=== PATIENT | male | born 1970 | race Caucasian/White ===

== ENCOUNTER → 2016-09-14 | Outpatient (CLI) | payer OTHER ==
[~2016-09-14] MED LIST: ACET-1311 PO; CYAN100T6 PO; EPOE20005 SQ; FLUC200T4 PO; LACT10CA3 PO; LSX20 PO; METO25TA56 PO; WARF4TAB43 PO
--- NOTE | 2016-09-14 15:37 | DIAGNOSTIC IMAGING REPORT ---
LEFT ANKLE 3 VIEWS HISTORY: Left ANKLE PAIN COMPARISON: None. FINDINGS: There is no fracture or dislocation. Mild soft tissue swelling. No radiopaque foreign bodies. IMPRESSION: No fractures. Electronically signed by: Camilo Alvarez M.D. 09/14/2016 3:36 PM Dictated Date/Time: 09/14/2016 3:34 PM
== END | disposition home or self-care (01) ==
LOC: C.RAD 14:50
PROVIDERS: ATTEND Internal Medicine
DX: M25.572 Pain in left ankle and joints of left foot (principal)

== ENCOUNTER → 2017-04-22 | Outpatient (CLI) | payer OTHER ==
--- NOTE | 2017-04-22 11:40 | DIAGNOSTIC IMAGING REPORT ---
ABDOMEN LIMITED (US) HISTORY: Pain. Nausea. B19.20. COMPARISON: 05/14/2016 FINDINGS: Pancreas: The pancreas demonstrates a normal echotexture. Liver: Unremarkable. Gallbladder: No gallbladder wall thickening. No gallstones. CBD: 4 mm Right kidney: Mild increase in cortical echogenicity. No evidence for hydronephrosis. Several small microcysts. IMPRESSION: 1. Findings suggestive of mild right renal nonobstructive renal insufficiency. 2. Otherwise normal exam The above report was generated using voice recognition software. It may contain grammatical, syntax or spelling errors. Electronically signed by: Pancho Currie M.D. 04/22/2017 11:39 AM Dictated Date/Time: 04/22/2017 11:37 AM
== END | disposition home or self-care (01) ==
LOC: C.ULTR 10:46
PROVIDERS: ATTEND Internal Medicine Gastroenterology
DX: B19.20 Unspecified viral hepatitis C without hepatic coma (principal)

== ENCOUNTER → 2017-06-25 | Outpatient (CLI) | payer OTHER ==
--- NOTE | 2017-06-25 11:19 | DIAGNOSTIC IMAGING REPORT ---
ULTRASOUND KIDNEYS AND BLADDER CLINICAL HISTORY: Renal insufficiency. COMPARISON STUDY: Abdominal CT dated 11/15/2015. TECHNIQUE: Real-time, grayscale, and color flow sonography of the kidneys and bladder is performed. Images are reviewed in the transverse and longitudinal planes. FINDINGS: Kidneys: The kidneys are normal in size and demonstrate increased cortical echotexture. The right kidney measures 11.5 cm and the left kidney measures 10.8 cm in length. There is no hydronephrosis. No shadowing renal calculi are identified. A subcentimeter cyst is incidentally noted on the left. There is no sonographic evidence of contour deforming renal mass lesion. No perinephric fluid is identified. Bladder: The bladder is partially decompressed and grossly normal in appearance. Bilateral ureteral jets were seen. Upper abdomen: The spleen is markedly enlarged measuring 18 cm in length. IMPRESSION: 1. The kidneys are normal in size and without hydronephrosis. 2. The kidneys demonstrate increased cortical echotexture suggesting medical renal disease. 3. The bladder is normal as imaged. 4. Marked splenomegaly. Electronically signed by: Sameer Diaz M.D. 06/25/2017 11:17 AM Dictated Date/Time: 06/25/2017 11:12 AM
== END | disposition home or self-care (01) ==
LOC: C.ULTR 10:31
PROVIDERS: ATTEND Internal Medicine
DX: R16.1 Splenomegaly, not elsewhere classified (principal); N28.9 Disorder of kidney and ureter, unspecified

== ENCOUNTER → 2017-09-15 | Outpatient (CLI) | payer OTHER ==
--- NOTE | 2017-09-15 13:54 | DIAGNOSTIC IMAGING REPORT ---
L-SPINE MIN 4 VIEWS ROUTINE CLINICAL HISTORY: R29.892 loss of height. COMPARISON STUDY: 09/10/2010 FINDINGS: There is a mild spinal curvature convex to the right. No acute fractures are visualized. There are progressive arthritic changes at the T12-L1 level with endplate erosive change. IMPRESSION: 1. Progressive arthritic changes at the T12-L1 level with endplate erosive change 2. No acute fractures Electronically signed by: Chato Weinberg M.D. 09/15/2017 1:53 PM Dictated Date/Time: 09/15/2017 1:51 PM
--- NOTE | 2017-09-15 13:56 | DIAGNOSTIC IMAGING REPORT ---
C-SPINE ROUTINE 4 OR 5 VIEWS CLINICAL HISTORY: R29.892 loss of height COMPARISON STUDY: No previous studies for comparison. FINDINGS: No acute fractures are visualized. There are degenerative changes with disc space narrowing most pronounced at the C5-6 and C6-7 levels. There is mild foraminal encroachment at these levels due to uncinate spurring. IMPRESSION: 1. No fractures identified 2. Degenerative changes most pronounced the C5-6 C6-7 levels. Electronically signed by: Chato Weinberg M.D. 09/15/2017 1:55 PM Dictated Date/Time: 09/15/2017 1:54 PM
--- NOTE | 2017-09-15 14:01 | DIAGNOSTIC IMAGING REPORT ---
THORACIC SPINE 3 VIEWS ROUTINE CLINICAL HISTORY: 47 years-old Male presenting with R29.892 height loss, painless. TECHNIQUE: 3 views of the thoracic spine were obtained. COMPARISON: Correlation made to CTA of the chest from 07/31/2013. FINDINGS: Slightly exaggerated thoracic kyphosis though no deformities of the vertebral bodies are evident. Vertebral bodies maintain normal height and alignment. Intervertebral disc heights preserved though disc osteophyte complexes noted at several levels. No compression deformity or evidence of subluxation. Visualized portion of the cervical spine is also normal. Median sternotomy wires and prosthetic aortic valve noted. Atherosclerosis of aortic arch. IMPRESSION: Exaggerated thoracic kyphosis without a focal compression deformity. Mild multilevel degenerative changes. Electronically signed by: Servando Camarillo M.D. 09/15/2017 2:00 PM Dictated Date/Time: 09/15/2017 1:58 PM
== END | disposition home or self-care (01) ==
LOC: C.RAD 13:11
PROVIDERS: ATTEND Internal Medicine
DX: R29.890 Loss of height (principal)

== ENCOUNTER 2018-10-22 12:25 | Inpatient (IN) ==
[2018-10-22] MEDS ORDERED: ASPIRIN CHEW 324 MG PO STA (12:55)
[2018-10-22] MEDS ORDERED: LORazepam 1 MG TAB SL STA (12:57)
[2018-10-22] MEDS ORDERED: METOPROLOL TARTRATE 1 MG/ML VIAL IV STA (13:02)
[2018-10-22 13:27] LABS: iSTAT Creatinine 2.8 mg/dl (0.6-1.3); iSTAT Hemoglobin 12.6 g/dl (14.0-18.0); iSTAT Ionized Calcium 1.18 mmol/l (1.12-1.32); iSTAT Potassium 4.1 mEq/L (3.3-5.0)
--- NOTE | 2018-10-22 13:29 | XRay Report ---
XR chest 1V portable CLINICAL HISTORY: Chest Pain pain COMPARISON STUDY: 07/21/2018 FINDINGS: Mild cardiomegaly. Prior median sternotomy and valve replacement. Lungs are clear. Diaphrag ms are smooth. Slight chronic blunting right lateral gastric angle. IMPRESSION: Chronic and postoperative change. No acute process. The above report was generated using voice recognition software. It may contain grammatical, syntax or spelling errors. Electronically signed by: Pancho Currie M.D. 10/22/2018 1:28 PM
[2018-10-22 13:40] LABS: Alanine Aminotransferase 17 U/L (12-78); Albumin Level 3.7 gm/dl (3.4-5.0); Aspartate Aminotransferase 13 U/L (15-37); BUN Creatinine Ratio 15.9 (10-20); Blood Urea Nitrogen 43 mg/dl (7-18); Calcium 9.3 mg/dl (8.5-10.1); Carbon Dioxide 23 mmol/L (21-32); Chloride 108 mmol/L (98-107); Creatinine Clr Calc Pharmacy 26.8 ml/min; Est GFR (African American) 30.1; Est GFR (Non-African American) 25.9; Glucose 93 mg/dl (70-99); Sodium 138 mmol/L (136-145)
[2018-10-22 13:45] LABS: Albumin Globulin Ratio 0.8 (0.9-2); Alkaline Phosphatase 80 U/L (45-117); Globulin 4.4 gm/dl (2.5-4.0); INR 4.3 (0.9-1.1); Partial Thromboplastin Ratio 1.3; Prothrombin Time 39.6 Seconds (9.0-12.0); Total Protein 8.1 gm/dl (6.4-8.2); Troponin I < 0.015 ng/ml (0-0.045)
[2018-10-22 13:47] LABS: D Dimer 730 ug/L FEU (0-500)
[2018-10-22 13:48] LABS: ALC (manual) 0.89 K/uL (1.2-3.4); Eosinophils # (manual) 0.05 K/uL (0-0.5); Eosinophils % (manual) 1.8 %; Hematocrit (blood only) 37.6 % (42-52); Hemoglobin 13.5 g/dL (14.0-18.0); Lymphocytes # (manual) 0.48 K/uL (1.2-3.4); Lymphocytes % (manual) 17.5 %; Mean Corpuscular Hgb Conc 35.9 g/dL (32-36); Mean Corpuscular Volume 86.4 fL (80-100); Mean Platelet Volume 12.2 fL (7.4-10.4); Monocytes # (manual) 0.22 K/uL (0.11-0.59); Monocytes % (manual) 7.9 %; Neutrophils % (manual) 57.9 %; Platelet Count 114 K/uL (130-400); Platelet Estimate Decreased (Normal); RDW Standard Deviation 51.4 fL (36.4-46.3); Reactive Lymphocytes # (manual) 0.41 K/uL; Red Blood Count 4.35 M/uL (4.7-6.1); White Blood Count 2.74 K/uL (4.8-10.8)
--- NOTE | 2018-10-22 14:05 | CT Scan Report ---
CT chest wo con CT DOSE: 350.36 mGy.cm HISTORY: Pain dissection, chest pain, prosthetic valve TECHNIQUE: Multiaxial CT images of the chest were performed without contrast. A dose lowering techni que was utilized adhering to the principles of ALARA. COMPARISON: None. FINDINGS: The lungs are considered clear. There is no focal infiltrative change. Mild cardiomegaly. 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 There is evidence for postoperative change and repair of the aortic valve. There is peripheral calcif ication of the bulk of which is most likely a postoperative basis. Her graft there is is circular romero cification transaxial image 116 of the be postoperative. Descending thoracic aorta is unremarkable. IMPRESSION: 1. 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 2. Within limitations of an unenhanced scan these findings appear to be stable and most likely postop erative. 3. The lungs are clear. 4. When able, these images should be compared to any prior outside exams. The above report was generated using voice recognition software. It may contain grammatical, syntax or spelling errors. Electronically signed by: Pancho Currie M.D. 10/22/2018 2:04 PM
--- NOTE | 2018-10-22 14:08 | CT Scan Report ---
CT abdomen wo con CT DOSE: HISTORY: Renal insufficiency dissection, renal failure TECHNIQUE: Multiaxial CT images of the abdomen was performed without contrast. A dose lowering techn ique was utilized adhering to the principles of ALARA. COMPARISON STUDY: 11/15/2015 FINDINGS: Lung bases are clear. Mild stable hepatomegaly. Significant splenic enlargement. This is slightly improved from the prior exam. The splenic enlargeme nt displaces the left kidney and anterior and medial fashion. The [place] kidneys are negative for calcification or hydronephrosis. Bowel pattern overall is nonobstructive. IMPRESSION: 1. Massive splenomegaly similar to prior studies. 2. Moderate hepatomegaly also stable. 3. Nonobstructive bowel pattern. 4. Mild atherosclerotic change abdominal aorta with no evidence for aneurysm. 5. No significant new or interval finding compared to the prior exam. The above report was generated using voice recognition software. It may contain grammatical, syntax or spelling errors. Electronically signed by: Pancho Currie M.D. 10/22/2018 2:07 PM
--- NOTE | 2018-10-22 16:14 | History & Physical Report ---
Date of Service October 22, 2018 Assessment & Plan (1) Atypical chest pain: Observation with telemetry. Heart catheterization in August of this year reveals no significant critical coronary artery disease. Moderate pulmonary hypertension was noted however. Observation with telemetry. Serial troponins. Repeat cardiac echo. Cardiology consultation. Present on Admission?: Yes (2) Paroxysmal atrial flutter: The patient has a history of atrial tachycardia and atrial flutter. He is anticoagulated on Coumadin. Heart rate is controlled at this time. Continue telemetry. Continue Coumadin and metoprolol therapy Present on Admission?: Yes (3) History of aortic valve replacement: Status post mechanical aortic valve replacement in 2007 Present on Admission?: Yes (4) Congenital heart disease: See previous records Present on Admission?: Yes (5) Anticoagulated on Coumadin: Current INR 4.2. Will obtain daily INR measurements Present on Admission?: Yes (6) Essential hypertension: Treated with metoprolol and hydralazine Present on Admission?: Yes (7) Intrinsic asthma: Currently stable. Continue inhalers as before Present on Admission?: Yes History of Present Illness Chief Complaint: Chest pain Primary Care Provider: Aguila Pollard 48-year-old male with congenital heart disease. He had supra aortic stenosis and underwent metallic aortic valve replacement in 2007. 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 He developed mid chest pain while at rest today described as a sharp pain associated with shortness of breath it radiated to the neck and arms. Interestingly, just 2 months ago he had a heart catheterization that revealed no critical coronary artery disease but he was found to have moderate pulmonary hypertension. He was given aspirin, IV metoprolol, and lorazepam in the ED and is now asymptomatic. EKG reveals atrial flutter which she has had in the past. Heart rate is controlled. He has a previous history of paroxysmal atrial tachycardia. He currently takes metoprolol succinate 75 mg daily which will be continued. He is also on chronic Coumadin therapy with current INR 4.2. Cardiac echo will be repeated and cardiology consultation requested. Allergies Allergy/AdvReac Type Severity Reaction Status Date / Time chlorhexidine Allergy Severe RASH Verified 10/22/18 14:40 isopropyl alcohol Allergy Severe RASH Verified 10/22/18 14:40 adhesive Allergy Intermediate RASH Verified 10/22/18 14:40 cat dander Allergy Unknown . Verified 10/22/18 14:40 amphotericin B AdvReac Severe severe Verified 10/22/18 14:40 rigors, chills/fever/sweats-hypothalmus irregularity edetic acid AdvReac Severe Coma and Verified 10/22/18 14:40 'bowels shut down' glycerin AdvReac Severe Coma and Verified 10/22/18 14:40 'bowels shut down' propofol AdvReac Severe Coma and Verified 10/22/18 14:40 'bowels shut down' heparin AdvReac Unknown Bleed out Verified 10/22/18 14:40 Egg Phospholipids AdvReac Severe Coma and Uncoded 10/22/18 14:40 'bowels shut down' Home Medications Home Medications Medication Instructions Recorded Confirmed Type ferrous sulfate 325 mg PO UD 07/21/18 10/22/18 History posaconazole [Noxafil] 10 ml PO BID 07/21/18 10/22/18 History albuterol sulfate [Ventolin HFA] 2 puff INHALATION QID PRN 10/22/18 10/22/18 History beclomethasone dipropionate [Qvar 2 puff INHALATION BID 10/22/18 10/22/18 History RediHaler] furosemide 20 mg PO QAM 10/22/18 10/22/18 History hydralazine 10 mg PO BID 10/22/18 10/22/18 History metoprolol succinate 75 mg PO QAM 10/22/18 10/22/18 History warfarin 5 mg PO 3XWK 10/22/18 10/22/18 History warfarin 6 mg PO 4XWK 10/22/18 10/22/18 History Past Med/Surg History Medical History Intrinsic asthma (Chronic) Anticoagulated on Coumadin (Chronic) Paroxysmal atrial flutter (Acute) Atypical chest pain (Acute) Atrial tachycardia Congenital heart disease PICC line infection (Acute) Hepatitis C Enlargement of spleen Atrial flutter (Acute) Sepsis (Acute) Surgical History History of aortic valve replacement H/O heart surgery (Acute) mechanical aortic valve and arch Social History Preferred Language: Faroese Current Living Situation: Alone current occupation: Disabled Feels Safe at Home: Yes Smoking Status: Former smoker Tobacco Type: cigarettes Second Hand Exposure: No Hx Alcohol Use: Yes Alcohol type: beer Hx Substance Use: No Review of Systems Review of Systems: All systems reviewed & are unremarkable except as noted in HPI & below Cardiovascular: Additional Comments: Chest discomfort at rest today with radiation to the neck and arms and associated with shortness of breath Physical Exam Constitutional: WD/WN, vitals as above Eyes: PERRL, conjunctivae normal, anicteric sclerae ENMT: external ear and nose normal, oropharynx normal Neck: trachea midline, no thyromegaly Respiratory: normal respiratory effort, lungs clear to auscultation Cardiovascular: Irregular heart rhythm. Systolic valve click. Grade 1/6 systolic murmur. No diastolic murmur. Negative S3 Gastrointestinal (Abdomen): normal bowel sounds, soft, nontender, no hepatosplenomegaly Musculoskeletal: no cyanosis or clubbing, extremities motor strength 5/5 Skin: no rashes, warm and dry Neurologic: patellar DTR's 2+ bilat, sensation intact Results & Data Vital Signs (Past 12 Hours) Vital Signs Temp Pulse Pulse Resp BP BP Pulse Ox 10/22/18 15:16 87 18 10/22/18 14:13 68 18 122/73 100 10/22/18 13:31 74 18 144/95 H 100 10/22/18 13:27 100 10/22/18 13:15 107 H 143/99 H 10/22/18 12:39 100 H 18 143/99 H 100 10/22/18 12:34 36.7 C 101 H 28 H 172/106 H 96 Laboratory Results 10/22/18 13:06 10/22/18 13:06
--- NOTE | 2018-10-22 17:11 | Emergency Department Note ---
Entered by Jesica Lazaro acting as a scribe for History of Present Illness General Chief complaint: Chest Pain Stated complaint: CHEST TIGHTNESS, SOB, COLD SWEATS Source: patient History of Present Illness Onset (ago): hour(s) 1 Location: left (Lung) and right (Lung) Severity: similar to prior episodes Pain Consistency: + other (Sudden) Maximum Pain Intensity: 9 Quality: + other (Shortness of breath) Relieved By: not by medication Associated symptoms: + chest pain, + nausea/vomiting (Positive nausea. Negative vomiting. ), + shortness of breath and + other (Anxious) The patient is a 48 year old male presenting to the Emergency Room complaining of sudden shortness of breath starting 1 hour ago. The patient reports that he was taking a shower and started having trouble breathing. He states that he was nauseous and coughed up a mucous with blood in it. He notes that he has a headache that he describes as a pressure. He adds that he has experienced these symptoms before but that his symptoms have never been this bad. The patient reports that he does have a heart history. He states that he took his normal medications this morning. He explains that he is anxious. He notes that he lives in [place], [place] by himself. He adds that takes Coumadin for his aortic valve replacement. Home Medications Home Medications Medication Instructions Recorded Confirmed Type ferrous sulfate 325 mg PO UD 07/21/18 10/22/18 History posaconazole [Noxafil] 10 ml PO BID 07/21/18 10/22/18 History albuterol sulfate [Ventolin HFA] 2 puff INHALATION QID PRN 10/22/18 10/22/18 History beclomethasone dipropionate [Qvar 2 puff INHALATION BID 10/22/18 10/22/18 History RediHaler] furosemide 20 mg PO QAM 10/22/18 10/22/18 History hydralazine 10 mg PO BID 10/22/18 10/22/18 History metoprolol succinate 75 mg PO QAM 10/22/18 10/22/18 History warfarin 5 mg PO 3XWK 10/22/18 10/22/18 History warfarin 6 mg PO 4XWK 10/22/18 10/22/18 History Allergies Allergy/AdvReac Type Severity Reaction Status Date / Time chlorhexidine Allergy Severe RASH Verified 10/22/18 14:40 isopropyl alcohol Allergy Severe RASH Verified 10/22/18 14:40 adhesive Allergy Intermediate RASH Verified 10/22/18 14:40 cat dander Allergy Unknown . Verified 10/22/18 14:40 amphotericin B AdvReac Severe severe Verified 10/22/18 14:40 rigors, chills/fever/sweats-hypothalmus irregularity edetic acid AdvReac Severe Coma and Verified 10/22/18 14:40 'bowels shut down' glycerin AdvReac Severe Coma and Verified 10/22/18 14:40 'bowels shut down' propofol AdvReac Severe Coma and Verified 10/22/18 14:40 'bowels shut down' heparin AdvReac Unknown Bleed out Verified 10/22/18 14:40 Egg Phospholipids AdvReac Severe Coma and Uncoded 10/22/18 14:40 'bowels shut down' Past Med/Surg History Medical History Intrinsic asthma (Chronic) Anticoagulated on Coumadin (Chronic) Paroxysmal atrial flutter (Acute) Atypical chest pain (Acute) Atrial tachycardia Congenital heart disease PICC line infection (Acute) Hepatitis C Enlargement of spleen Atrial flutter (Acute) Sepsis (Acute) Bicuspid aortic valve Surgical History History of aortic valve replacement 25 millimeter [employer] valve placed in 2007, [facility]. H/O heart surgery (Acute) mechanical aortic valve and arch repair ([place]) 2007, [facility] Social History Preferred Language: Italian Communication Ability: Effective Pumper Gager Required: No Beliefs That Will Affect Care: None Current Living Situation: Alone current occupation: Disabled Other Information That Helps Us Care for You: No Feels Safe at Home: Yes Safety Concerns: Feels Safe At This Time Smoking Status: Former smoker Tobacco Type: cigarettes Do You Dip or Chew Tob acco: No Second Hand Exposure: No Tobacco Cessation Education Requested by Patient: No Hx Alcohol Use: Yes Alcohol type: beer Hx Substance Use: No Review of Systems See HPI for pertinent positives & negatives. and A total of 10 systems reviewed and were otherwise negative Physical Exam Vital Signs Vital Signs - 24 hr 10/22/18 18:03 10/22/18 18:17 10/22/18 20:00 Temperature 36.6 C 36.6 C Temperature Source Oral Oral Pulse Rate [Apical] 80 73 80 Pulse Rhythm [Apical] Regular Irregular Pulse Strength [Apical] Normal Normal Respiratory Rate 16 20 16 Respiratory Effort / Characteristics Non-Labored Spontaneous Non-Labored Spontaneous Respiratory Depth Normal Normal Respiratory Pattern Regular Regular Blood Pressure [Left Arm] Blood Pressure [Right Arm] 107/69 116/75 102/72 Blood Pressure Mean [Left Arm] Blood Pressure Mean [Right Arm] 81 88 82 Blood Pressure Position [Left Arm] Blood Pressure Position [Right Arm] Sitting Sitting Pulse Oximetry 98 100 99 Oxygen Delivery Method Room Air Room Air Room Air 10/22/18 22:53 10/23/18 04:00 10/23/18 07:41 Temperature 37 C 36.7 C 37.0 C Temperature Source Oral Oral Oral Pulse Rate [Apical] 74 84 71 Pulse Rhythm [Apical] Pulse Strength [Apical] Respiratory Rate 20 16 17 Respiratory Effort / Characteristics Respiratory Depth Respiratory Pattern Blood Pressure [Left Arm] 116/72 Blood Pressure [Right Arm] 103/70 122/71 Blood Pressure Mean [Left Arm] 86 Blood Pressure Mean [Right Arm] 81 88 Blood Pressure Position [Left Arm] Lying Blood Pressure Position [Right Arm] Lying Lying Pulse Oximetry 97 98 97 Oxygen Delivery Method Room Air Room Air 10/23/18 08:00 10/23/18 11:29 10/23/18 12:00 Temperature 37.1 C Temperature Source Oral Pulse Rate [Apical] 67 Pulse Rhythm [Apical] Pulse Strength [Apical] Respiratory Rate 18 Respiratory Effort / Characteristics Respiratory Depth Normal Normal Respiratory Pattern Blood Pressure [Left Arm] Blood Pressure [Right Arm] 112/74 Blood Pressure Mean [Left Arm] Blood Pressure Mean [Right Arm] 86 Blood Pressure Position [Left Arm] Blood Pressure Position [Right Arm] Lying Pulse Oximetry 99 Oxygen Delivery Method Room Air 10/23/18 15:49 Temperature 37.3 C Temperature Source Oral Pulse Rate [Apical] 79 Pulse Rhythm [Apical] Pulse Strength [Apical] Respiratory Rate 18 Respiratory Effort / Characteristics Respiratory Depth Respiratory Pattern Blood Pressure [Left Arm] Blood Pressure [Right Arm] 102/79 Blood Pressure Mean [Left Arm] Blood Pressure Mean [Right Arm] 86 Blood Pressure Position [Left Arm] Blood Pressure Position [Right Arm] Lying Pulse Oximetry 98 Oxygen Delivery Method Room Air Vital signs reviewed. General: Anxious-appearing 48 year old male, in some discomfort. HEENT: No scleral icterus, PERRLA, neck supple. Atraumatic. Cardiovascular: Rate controlled and irregular rhythm. Systolic click. Pulmonary: Clear to auscultation bilaterally, normal work of breathing. Abdomen: Soft, nontender, nondistended, positive bowel sounds. Musculoskeletal: Atraumatic, no peripheral edema. Neurologic: Patient awake alert and oriented x 3. Skin: Warm, dry, no rash Course 1254: The patient was evaluated in room B11B, and a complete history and physical examination were performed. 1323: I discussed the patient�s case with Dr. Kush LOPEZ radiologist who recommends that the patent get an initial CT without contrast. 1519: I reevaluated the patient at this time. 1533: I discussed the patient�s case with Dr. Dahlia LOPEZ hospitalist. He will evaluate the patient for further management. Consultations Consultation #1: I discussed the patient�s case with Dr. Kush LOPEZ radiologist who recommends that the patent get an initial CT without contrast. Time: 13:23 Consultation #2: I discussed the patient�s case with Dr. Dahlia LOPEZ hospitalist. He will evaluate the patient for further management. Time: 15:33 Administered Medications Beclomethasone Dipropionate (Qvar 40 Mcg) 2 puffs INH BID JG Stop: 11/21/18 20:59 Last Admin: 10/23/18 07:49 Dose: 2 puffs Documented by: [id number] Admin: 10/22/18 21:35 Dose: 2 puffs Documented by: [id number] Ferrous Sulfate (Feosol) 325 mg PO DAILY JG Stop: 11/21/18 18:44 Last Admin: 10/23/18 07:49 Dose: 325 mg Documented by: [id number] Admin: 10/22/18 21:35 Dose: 325 mg Documented by: [id number] Furosemide (Lasix) 20 mg PO QAM JG Stop: 11/22/18 08:59 Last Admin: 10/23/18 07:48 Dose: 20 mg Documented by: [id number] Hydralazine HCl (Apresoline) 10 mg PO BID JG Stop: 11/21/18 20:59 Last Admin: 10/23/18 07:47 Dose: 10 mg Documented by: [id number] Admin: 10/22/18 21:35 Dose: 10 mg Documented by: [id number] Metoprolol Succinate (Toprol Xl) 75 mg PO QAM [facility] Stop: 11/22/18 08:59 Last Admin: 10/23/18 07:48 Dose: 75 mg Documented by: [id number] Miscellaneous (Order Awaiting Action) 1 ea N/A QS [facility] Stop: 11/21/18 18:44 Last Admin: 10/23/18 14:50 Dose: Not Given Documented by: [id number] Admin: 10/23/18 07:47 Dose: Not Given Documented by: [id number] Admin: 10/22/18 23:37 Dose: Not Given Documented by: [id number] Admin: 10/22/18 21:36 Dose: Not Given Documented by: [id number] Warfarin Sodium (Coumadin) 6 mg PO [id number]@1600 [facility] Stop: 11/22/18 15:59 Last Admin: 10/23/18 14:51 Dose: Not Given Documented by: [id number] Discontinued Medications Aspirin (Aspirin) 324 mg PO NOW [facility] Stop: 10/22/18 12:56 Last Admin: 10/22/18 13:13 Dose: 324 mg Documented by: [id number] Heparin Sodium/Dextrose () 1 ea IV NOW STA; Protocol Stop: 10/22/18 19:50 Last Admin: 10/23/18 07:12 Dose: Not Given Documented by: [id number] Caspofungin 150 mg/ Sodium (Chloride) 280 mls @ 250 mls/hr IV ONCE ONE Stop: 10/23/18 16:52 Last Admin: 10/23/18 16:17 Dose: 250 mls/hr Documented by: [id number] Lorazepam (Ativan) 1 mg SL NOW STA Stop: 10/22/18 12:58 Last Admin: 10/22/18 13:14 Dose: 1 mg Documented by: [id number] Metoprolol Tartrate (Lopressor) 5 mg IV NOW STA Stop: 10/22/18 13:03 Last Admin: 10/22/18 13:15 Dose: 5 mg Documented by: [id number] Medical Decision Making Differential Diagnosis DDx: Acute coronary syndrome, pulmonary embolus, aortic dissection, musculoskeletal pain, pneumonia, pleural effusion, pneumothorax, GERD, PUD, acute cholecystitis Medical Records Attestation: I reviewed the patient's medical records. Home Medications Current Medication List: was personally reviewed by me Laboratory Data Attestation: I reviewed the patient's lab results. Result diagrams: 10/22/18 13:06 10/22/18 13:06 Lab Results 10/22/18 10/22/18 10/22/18 Range/Units 13:06 13:06 13:06 WBC 2.74 L (4.8-10.8) K/uL RBC 4.35 L (4.7-6.1) M/uL Hgb 13.5 L (14.0-18.0) g/dL POC Hgb (14.0-18.0) g/dl Hct 37.6 L (42-52) % POC Hct (42-52) % MCV 86.4 (80-100) fL MCH 31.0 (25-34) pg MCHC 35.9 (32-36) g/dL RDW Std Deviation 51.4 H (36.4-46.3) fL RDW Coeff of Tricia 16.0 H (11.5-14.5) % Plt Count 114 L (130-400) K/uL MPV 12.2 H (7.4-10.4) fL Neutrophils % (Manual) 57.9 % Lymphocytes % (Manual) 17.5 % Reactive Lymphs % (Man) 14.9 % Monocytes % (Manual) 7.9 % Eosinophils % (Manual) 1.8 % Neutrophils # (Manual) 1.59 (1.4-6.5) K/uL Total Absolute Neuts 1.59 (1.4-6.5) K/uL Lymphocytes # (Manual) 0.48 L (1.2-3.4) K/uL Reactive Lymphs # 0.41 K/uL Total Abs Lymphocytes 0.89 L (1.2-3.4) K/uL Monocytes # (Manual) 0.22 (0.11-0.59) K/uL Eosinophils # (Manual) 0.05 (0-0.5) K/uL Platelet Estimate Decreased L (Normal) PT 39.6 H (9.0-12.0) Seconds INR 4.3 H (0.9-1.1) APTT 35.0 H (21.0-31.0) Seconds PTT Ratio 1.3 D-Dimer 730 H* (0-500) ug/L FEU POC Sodium (135-144) mEq/L Sodium 138 (136-145) mmol/L POC Potassium (3.3-5.0) mEq/L Potassium 4.0 (3.5-5.1) mmol/L POC Chloride (101-112) mEq/L Chloride 108 H (98-107) mmol/L Carbon Dioxide 23 (21-32) mmol/L POC Total CO2 (24-31) mEq/l Anion Gap 7.0 (3-11) POC Anion Gap (16-25) mmol/L POC BUN (7-18) mg/dl BUN 43 H (7-18) mg/dl Creatinine 2.73 H (0.6-1.4) mg/dl POC Creatinine (0.6-1.3) mg/dl Est Cr Clr Drug Dosing 26.8 ml/min Est GFR ( Amer) 30.1 Est GFR (Non-Af Amer) 25.9 BUN/Creatinine Ratio 15.9 (10-20) Glucose 93 (70-99) mg/dl POC Glucose (other) (70-99) mg/dl Calcium 9.3 (8.5-10.1) mg/dl POC Ioniz Calcium Jeffery (1.12-1.32) mmol/l Total Bilirubin 1.0 (0.2-1) mg/dl AST 13 L (15-37) U/L ALT 17 (12-78) U/L Alkaline Phosphatase 80 (45-117) U/L Troponin I < 0.015 (0-0.045) ng/ml Total Protein 8.1 (6.4-8.2) gm/dl Albumin 3.7 (3.4-5.0) gm/dl Globulin 4.4 H (2.5-4.0) gm/dl Albumin/Globulin Ratio 0.8 L (0.9-2) Lipase 374 (73-393) U/L 10/22/18 10/22/18 10/23/18 Range/Units 13:12 18:32 00:31 WBC (4.8-10.8) K/uL RBC (4.7-6.1) M/uL Hgb (14.0-18.0) g/dL POC Hgb 12.6 L (14.0-18.0) g/dl Hct (42-52) % POC Hct 37 L (42-52) % MCV (80-100) fL MCH (25-34) pg MCHC (32-36) g/dL RDW Std Deviation (36.4-46.3) fL RDW Coeff of Tricia (11.5-14.5) % Plt Count (130-400) K/uL MPV (7.4-10.4) fL Neutrophils % (Manual) % Lymphocytes % (Manual) % Reactive Lymphs % (Man) % Monocytes % (Manual) % Eosinophils % (Manual) % Neutrophils # (Manual) (1.4-6.5) K/uL Total Absolute Neuts (1.4-6.5) K/uL Lymphocytes # (Manual) (1.2-3.4) K/uL Reactive Lymphs # K/uL Total Abs Lymphocytes (1.2-3.4) K/uL Monocytes # (Manual) (0.11-0.59) K/uL Eosinophils # (Manual) (0-0.5) K/uL Platelet Estimate (Normal) PT (9.0-12.0) Seconds INR (0.9-1.1) APTT (21.0-31.0) Seconds PTT Ratio D-Dimer (0-500) ug/L FEU POC Sodium 141 (135-144) mEq/L Sodium (136-145) mmol/L POC Potassium 4.1 (3.3-5.0) mEq/L Potassium (3.5-5.1) mmol/L POC Chloride 104 (101-112) mEq/L Chloride (98-107) mmol/L Carbon Dioxide (21-32) mmol/L POC Total CO2 22 L (24-31) mEq/l Anion Gap (3-11) POC Anion Gap 20.0 (16-25) mmol/L POC BUN 44 H (7-18) mg/dl BUN (7-18) mg/dl Creatinine (0.6-1.4) mg/dl POC Creatinine 2.8 H (0.6-1.3) mg/dl Est Cr Clr Drug Dosing ml/min Est GFR ( Amer) Est GFR (Non-Af Amer) BUN/Creatinine Ratio (10-20) Glucose (70-99) mg/dl POC Glucose (other) 99 (70-99) mg/dl Calcium (8.5-10.1) mg/dl POC Ioniz Calcium Jeffery 1.18 (1.12-1.32) mmol/l Total Bilirubin (0.2-1) mg/dl AST (15-37) U/L ALT (12-78) U/L Alkaline Phosphatase (45-117) U/L Troponin I 0.899 H* 0.870 H* (0-0.045) ng/ml Total Protein (6.4-8.2) gm/dl Albumin (3.4-5.0) gm/dl Globulin (2.5-4.0) gm/dl Albumin/Globulin Ratio (0.9-2) Lipase (73-393) U/L 10/23/18 10/23/18 Range/Units 06:10 06:10 WBC (4.8-10.8) K/uL RBC (4.7-6.1) M/uL Hgb (14.0-18.0) g/dL POC Hgb (14.0-18.0) g/dl Hct (42-52) % POC Hct (42-52) % MCV (80-100) fL MCH (25-34) pg MCHC (32-36) g/dL RDW Std Deviation (36.4-46.3) fL RDW Coeff of Tricia (11.5-14.5) % Plt Count (130-400) K/uL MPV (7.4-10.4) fL Neutrophils % (Manual) % Lymphocytes % (Manual) % Reactive Lymphs % (Man) % Monocytes % (Manual) % Eosinophils % (Manual) % Neutrophils # (Manual) (1.4-6.5) K/uL Total Absolute Neuts (1.4-6.5) K/uL Lymphocytes # (Manual) (1.2-3.4) K/uL Reactive Lymphs # K/uL Total Abs Lymphocytes (1.2-3.4) K/uL Monocytes # (Manual) (0.11-0.59) K/uL Eosinophils # (Manual) (0-0.5) K/uL Platelet Estimate (Normal) PT 37.5 H (9.0-12.0) Seconds INR 4.0 H (0.9-1.1) APTT (21.0-31.0) Seconds PTT Ratio D-Dimer (0-500) ug/L FEU POC Sodium (135-144) mEq/L Sodium (136-145) mmol/L POC Potassium (3.3-5.0) mEq/L Potassium (3.5-5.1) mmol/L POC Chloride (101-112) mEq/L Chloride (98-107) mmol/L Carbon Dioxide (21-32) mmol/L POC Total CO2 (24-31) mEq/l Anion Gap (3-11) POC Anion Gap (16-25) mmol/L POC BUN (7-18) mg/dl BUN (7-18) mg/dl Creatinine (0.6-1.4) mg/dl POC Creatinine (0.6-1.3) mg/dl Est Cr Clr Drug Dosing ml/min Est GFR ( Amer) Est GFR (Non-Af Amer) BUN/Creatinine Ratio (10-20) Glucose (70-99) mg/dl POC Glucose (other) (70-99) mg/dl Calcium (8.5-10.1) mg/dl POC Ioniz Calcium Jeffery (1.12-1.32) mmol/l Total Bilirubin (0.2-1) mg/dl AST (15-37) U/L ALT (12-78) U/L Alkaline Phosphatase (45-117) U/L Troponin I 0.709 H* (0-0.045) ng/ml Total Protein (6.4-8.2) gm/dl Albumin (3.4-5.0) gm/dl Globulin (2.5-4.0) gm/dl Albumin/Globulin Ratio (0.9-2) Lipase (73-393) U/L Imaging Data Radiologist's Impression: Radiology results as stated below per my review and the radiologist's interpretation: CT chest wo con CT DOSE: 350.36 mGy.cm HISTORY: Pain dissection, chest pain, prosthetic valve TECHNIQUE: Multiaxial CT images of the chest were performed without contrast. A dose lowering technique was utilized adhering to the principles of ALARA. COMPARISON: None. FINDINGS: The lungs are considered clear. There is no focal infiltrative change. Mild cardiomegaly. 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 There is evidence for postoperative change and repair of the aortic valve. There is peripheral calcification of the bulk of which is most likely a postoperative basis. Her graft there is is circular calcification transaxial image 116 of the be postoperative. Descending thoracic aorta is unremarkable. IMPRESSION: 1. 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 2. Within limitations of an unenhanced scan these findings appear to be stable and most likely postoperative. 3. The lungs are clear. 4. When able, these images should be compared to any prior outside exams. The above report was generated using voice recognition software. It may contain grammatical, syntax or spelling errors. Electronically signed by: Pancho Currie M.D. 10/22/2018 2:[address] abdomen wo con CT DOSE: HISTORY: Renal insufficiency dissection, renal failure TECHNIQUE: Multiaxial CT images of the abdomen was performed without contrast. A dose lowering technique was utilized adhering to the principles of ALARA. COMPARISON STUDY: 11/15/2015 FINDINGS: Lung bases are clear. Mild stable hepatomegaly. Significant splenic enlargement. This is slightly improved from the prior exam. The splenic enlargement displaces the left kidney and anterior and medial fash ion. The [place] kidneys are negative for calcification or hydronephrosis. Bowel pattern overall is nonobstructive. IMPRESSION: 1. Massive splenomegaly similar to prior studies. 2. Moderate hepatomegaly also stable. 3. Nonobstructive bowel pattern. 4. Mild atherosclerotic change abdominal aorta with no evidence for aneurysm. 5. No significant new or interval finding compared to the prior exam. The above report was generated using voice recognition software. It may contain grammatical, syntax or spelling errors. Electronically signed by: Pancho Currie M.D. 10/22/2018 2:07 PM XR chest 1V portable CLINICAL HISTORY: Chest Pain pain COMPARISON STUDY: 07/21/2018 FINDINGS: Mild cardiomegaly. Prior median sternotomy and valve replacement. Kemar gs are clear. Diaphragms are smooth. Slight chronic blunting right lateral gastric angle. IMPRESSION: Chronic and postoperative change. No acute process. The above report was generated using voice recognition software. It may contain grammatical, syntax or spelling errors. Electronically signed by: Pancho Currie M.D. 10/22/2018 1:28 PM ECG Data Attestation: I personally reviewed and interpreted this ECG as follows: Indication: chest pain Rate (beats per minute): 102 Rhythm: atrial fibrillation Findings: + other (Repolarization abnormality. QTC 458.) and + LBBB (incomplete) Additional Comments: 1417: Repeat EKG per my interpretation: A-flutter at 84 beats per minute. Variable 1st degree AV block. Previous anterior infarct. Repolarization abnormality in the lateral leads. QTC 460. Blood Pressure Blood Pressure Findings: Normal blood pressure Blood Pressure Disposition: further management by hospitalist MDM Narrative This patient was evaluated and appeared to be in significant discomfort. Physical examination is consistent with the patient's complicated cardiac history. There is evidence of a systolic click. Vital signs are significant for tachycardia. The patient is found to be tachycardic, EKG reveals likely a rapid atrial fibrillation. Patient was medicated with 5 mg of IV metoprolol. He was also given aspirin 324 mg p.o. and Ativan 1.0 mg p.o. patient had significant resolution of his symptoms. Patient was then at rate controlled. Laboratory evaluation reveals an acute on chronic renal insufficiency. Patient's creatinine today is 2.73, slightly worsened from previous. Troponin is normal. I suspect the patient's discomfort today was related to the atrial fibrillation as he has not experienced this in the past. Records from [facility] were reviewed and reveal history of atrial tachycardia but no history of atrial fib or flutter. Patient's INR is 4. D-dimer is elevated however this is likely secondary to his chronic disease and unlikely related to PE or DVT as his INR is supratherapeutic. Patient was discussed with Dr. Villagomez of the hospitalist service to evaluate the patient for admission and further management. Patient is aware of plan and agrees. Impression & Plan New onset atrial flutter Discharge Plan Visit Data *Final* Discharge Date/Time: 10/22/18 18:03 Chief Complaint: Chest Pain Stated Complaint: CHEST TIGHTNESS, SOB, COLD SWEATS ED Provider: Zuleyka Barboza Discharge Problem: New onset atrial flutter Patient Disposition: Admitted As Inpatient Discharge Instructions Interventions: ED Discharge Assessment Last Done: 10/22/18 18:03 The scribe's documentation has been prepared under my direction and personally reviewed by me in its entirety. I confirm that the note above accurately reflects all work, treatment, procedures, and medical decision making performed by me.
[2018-10-22] MEDS ORDERED: ACETAMINOPHEN 325 MG TAB PO PRN (18:17)
[2018-10-22] MEDS ORDERED: ALUMINUM/MAGNESIUM SUSP 30 ML UDC PO PRN (18:17)
[2018-10-22] MEDS ORDERED: NITROGLYCERIN SL 0.4 MG/TAB TAB SL PRN (18:17)
[2018-10-22] MEDS ORDERED: ALBUTEROL HFA 8 GM INHALER INH PRN (18:17)
[2018-10-22] MEDS ORDERED: ONDANSETRON INJ 2 MG/ML 2 ML VIAL IV PRN (18:17)
[2018-10-22] MEDS: BECLOMETHASONE DIP HFA 40 MCG 8.7G INH INH SCH (21:35)
[2018-10-22] MEDS: HydrALAZINE 10 MG TAB PO SCH (21:35)
[2018-10-22] MEDS: FERROUS SULFATE 325 MG TAB PO SCH (21:35)
--- NOTE | 2018-10-22 22:52 | Progress Note ---
Date of Service October 22, 2018 Received a page from the patient's nurse that his last serial troponin check was 0.889 (at 1832). They report the patient continues to be symptom-free, specifically without chest pain or shortness of breath. Brief review of the chart notes that he was admitted for atypical chest pain. Underwent a recent heart cath with no significant disease. Does have some pulmonary hypertension. EKG ordered around 2100 appears roughly unchanged from earlier in the day, specifically atrial flutter. Saw patient at bedside. He was resting comfortably. He says that he has no present complaints this evening. Exam: Reviewed most recent vitals. Positive S1-S2, 2 out of 6 systolic murmur with click. Lungs clear to auscultation anteriorly. Plan: - Patient's INR was 4.3 earlier today, thus anticoagulated. - Pending cardiology consult for tomorrow. - Discussed case with Dr. Christiansen. Rickie Gomez, PGY2 Overnight call Results & Data Vital Signs (Past 12 Hours) Vital Signs Temp Pulse Pulse Resp BP BP Pulse Ox 10/22/18 20:00 36.6 C 80 16 102/72 99 10/22/18 18:17 36.6 C 73 20 116/75 100 10/22/18 18:03 80 16 107/69 98 10/22/18 17:18 89 108/68 99 10/22/18 16:32 98 10/22/18 16:14 68 17 103/82 98 10/22/18 15:16 87 18 10/22/18 14:13 68 18 122/73 100 10/22/18 13:31 74 18 144/95 H 100 10/22/18 13:27 100 10/22/18 13:15 107 H 143/99 H 10/22/18 12:39 100 H 18 143/99 H 100 10/22/18 12:34 36.7 C 101 H 28 H 172/106 H 96
[2018-10-23 06:51] LABS: Prothrombin Time 37.5 Seconds (9.0-12.0)
[2018-10-23] MEDS: HydrALAZINE 10 MG TAB PO SCH (07:47)
[2018-10-23] MEDS: FERROUS SULFATE 325 MG TAB PO SCH (07:49)
[2018-10-23] MEDS: BECLOMETHASONE DIP HFA 40 MCG 8.7G INH INH SCH (07:49)
[2018-10-23] MEDS ORDERED: FUROSEMIDE 20 MG TAB PO SCH (09:00)
[2018-10-23] MEDS ORDERED: METOPROLOL SUCC 25MG EXT REL TAB PO SCH (09:00)
--- NOTE | 2018-10-23 12:14 | Cardiology Consultation ---
Date of Consultation October 23, 2018 Assessment & Plan (1) New onset atrial flutter: Patient has a reported history of an atrial tachycardia, but there does not appear to be documentation a prior atrial flutter. Whether this contributed to the patient's recent symptoms or is of recent onset is unclear. Overall rate control appears to be adequate. This does appear to be a typical right atrial flutter which could be amenable to catheter based therapy. He was seem to be a good candidate for cardioversion as well as he has been chronically anticoagulated and likely has a low thromboembolic risk. Alternatively, we could leave him in atrial flutter and continue with his current medical therapy which appears to provide adequate protection from both thromboembolic events and good rate control. (2) History of aortic valve replacement: He does have an element of aortic insufficiency, but the valve otherwise appears to be well seated and functioning normally. (3) Cardiomyopathy: He is known to have mildly reduced LV systolic function. He does not appear to be in heart failure although the record suggests that he has had some difficulty with pulmonary congestion in the past. He has been maintained on metoprolol succinate and hydralazine. Adding a nitrate to this regimen would be a reasonable alternative to [place] inhibition which is relatively contraindicated due to his renal dysfunction. However, he is known to have significant pulmonary hypertension and addition of nitrates could compromise right ventricular filling. (4) Elevated troponin: Patient did have a fairly extended episode chest �burning�. This appeared to resolve without any intervention for coronary disease. The trajectory of his troponin elevation is not consistent with an acute coronary syndrome. He likely had an element of demand ischemia. He is known to have cardiomyopathy, he may have had significantly elevated blood pressures around the time of his presentation and could even have had some higher ventricular rates associated with his atrial flutter. He had a recent catheterization which demonstrated the absence of significant coronary disease. I do not believe he requires any additional ischemic evaluation at this point. History of Present Illness Reason for Consultation: Elevated troponin, chest pain, history of aortic valve replacement, atrial flutter Requesting Physician: John Attending Physician: Marco Lopez MD History of Present Illness The patient is a 48-year-old gentleman with an extensive cardiac history to include congenital supravalvular aortic stenosis and a bicuspid aortic valve status post multiple interventions including mechanical aortic valve replacement in 2007. The patient recently has been suffering from some mild constitutional symptoms such as increasing fatigue in subjective feelings infection. Yesterday morning he awoke with some upper airway congestion which is common. He decided to take a shower in order to improve expect duration but during the shower began to experience symptoms of breathing difficulty, sweaty hands, a burning sensation in the precordium, a sense of palpitation and anxiety. The patient exited the shower and got dressed. He drove in his car to get coffee, but while standing in line began to feel more anxious and left the coffee shop to drive [facility]. It seems that his symptoms were present this entire time. He had some element of dizziness and presyncope as well. [facility] he was administered lorazepam and metoprolol. His symptoms appear to have resolved after getting these medications. Patient states that he has had identical symptoms and episodes of this nature over the past 9 months. Often times they are provoked by activity. He states that with exertion such as at ascending a slight grade he will experience similar symptoms. The episodes generally last approximately 5 minutes and today he was primarily concerned about the extended nature of this episode. He has rare palpitations but has not been aware of any palpitations recently. He has not felt as if he had a high heart rate recently. Allergies Allergy/AdvReac Type Severity Reaction Status Date / Time chlorhexidine Allergy Severe RASH Verified 10/22/18 14:40 isopropyl alcohol Allergy Severe RASH Verified 10/22/18 14:40 adhesive Allergy Intermediate RASH Verified 10/22/18 14:40 cat dander Allergy Unknown . Verified 10/22/18 14:40 amphotericin B AdvReac Severe severe Verified 10/22/18 14:40 rigors, chills/fever/sweats-hypothalmus irregularity edetic acid AdvReac Severe Coma and Verified 10/22/18 14:40 'bowels shut down' glycerin AdvReac Severe Coma and Verified 10/22/18 14:40 'bowels shut down' propofol AdvReac Severe Coma and Verified 10/22/18 14:40 'bowels shut down' heparin AdvReac Unknown Bleed out Verified 10/22/18 14:40 Egg Phospholipids AdvReac Severe Coma and Uncoded 10/22/18 14:40 'bowels shut down' Home Medications Home Medications Medication Instructions Recorded Confirmed Type ferrous sulfate 325 mg PO UD 07/21/18 10/22/18 History posaconazole [Noxafil] 10 ml PO BID 07/21/18 10/22/18 History albuterol sulfate [Ventolin HFA] 2 puff INHALATION QID PRN 10/22/18 10/22/18 History beclomethasone dipropionate [Qvar 2 puff INHALATION BID 10/22/18 10/22/18 History RediHaler] furosemide 20 mg PO QAM 10/22/18 10/22/18 History hydralazine 10 mg PO BID 10/22/18 10/22/18 History metoprolol succinate 75 mg PO QAM 10/22/18 10/22/18 History warfarin 5 mg PO 3XWK 10/22/18 10/22/18 History warfarin 6 mg PO 4XWK 10/22/18 10/22/18 History Patient History Medical History Intrinsic asthma (Chronic) Anticoagulated on Coumadin (Chronic) Paroxysmal atrial flutter (Acute) Atypical chest pain (Acute) Atrial tachycardia Congenital heart disease PICC line infection (Acute) Hepatitis C Enlargement of spleen Atrial flutter (Acute) Sepsis (Acute) Bicuspid aortic valve Surgical History History of aortic valve replacement 25 millimeter [employer] valve placed in 2007, [facility]. H/O heart surgery (Acute) mechanical aortic valve and arch repair ([place]) 2007, [facility] Social History Preferred Language: Icelandic Communication Ability: Effective [employer] Instructor Required: No Beliefs That Will Affect Care: None Current Living Situation: Alone current occupation: Disabled Other Information That Helps Us Care for You: No Feels Safe at Home: Yes Safety Concerns: Feels Safe At This Time Smoking Status: Former smoker Tobacco Type: cigarettes Do You Dip or Chew Tobacco: No Second Hand Exposure: No Tobacco Cessation Education Requested by Patient: No Hx Alcohol Use: Yes Alcohol type: beer Hx Substance Use: No Review of Systems Review of Systems: All systems reviewed & are unremarkable except as noted in HPI & below Patient is felt as though he had an increased temperature, more fatigue and tiredness recently. He claims to have lost some weight in at vertically. He has not reported lower extremity edema. He did not report orthopnea or paroxysmal nocturnal dyspnea. Physical Exam Physical Exam: The patient is alert and oriented. Mood and affect appeared normal. He answered all questions appropriately. HEENT: Pupils are equal and reactive to light and accommodation. Extraocular movements are intact. The sclerae are anicteric. Scar noted on the left occiput Neuro: Cranial nerves intact Neck: Patient's neck is supple. He has palpable carotid pulses bilaterally without bruits on auscultation. There is no evidence of jugular venous distention. The thyroid is not enlarged. Lungs: Clear to auscultation bilaterally. He has good air movement without use of accessory muscles. He has some mild expiratory wheezing with forceful expiration. Cardiac: Heart demonstrates a regular rate and rhythm. Normal S1 and crisp mechanical S2. Crescendo systolic murmur heard best at the left 2nd intercostal space Chest: Well-healed sternotomy scar Pulses: The patient has palpable radial pulses bilaterally that are equal in intensity Extremities: There was no evidence of hypoperfusion. There is no cyanosis or clubbing. There is no edema. Skin: I did not appreciate any rashes on examination today. Results & Data Vital Signs (Past 12 Hours) Vital Signs Temp Pulse Resp BP Pulse Ox 10/23/18 11:29 37.1 C 67 18 112/74 99 10/23/18 07:41 37.0 C 71 17 122/71 97 10/23/18 04:00 36.7 C 84 16 103/70 98 Laboratory Results Abnormal Lab Results 10/22/18 10/22/18 10/22/18 13:06 13:06 13:06 WBC 2.74 L RBC 4.35 L Hgb 13.5 L POC Hgb Hct 37.6 L POC Hct MCV 86.4 MCH 31.0 MCHC 35.9 RDW Std Deviation 51.4 H RDW Coeff of Tricia 16.0 H Plt Count 114 L MPV 12.2 H Neutrophils % (Manual) 57.9 Lymphocytes % (Manual) 17.5 Reactive Lymphs % (Man) 14.9 Monocytes % (Manual) 7.9 Eosinophils % (Manual) 1.8 Neutrophils # (Manual) 1.59 Total Absolute Neuts 1.59 Lymphocytes # (Manual) 0.48 L Reactive Lymphs # 0.41 Total Abs Lymphocytes 0.89 L Monocytes # (Manual) 0.22 Eosinophils # (Manual) 0.05 Platelet Estimate Decreased L PT 39.6 H INR 4.3 H APTT 35.0 H PTT Ratio 1.3 D-Dimer 730 H* POC Sodium Sodium 138 POC Potassium Potassium 4.0 POC Chloride Chloride 108 H Carbon Dioxide 23 POC Total CO2 Anion Gap 7.0 POC Anion Gap POC BUN BUN 43 H Creatinine 2.73 H POC Creatinine Est Cr Clr Drug Dosing 26.8 Est GFR ( Amer) 30.1 Est GFR (Non-Af Amer) 25.9 BUN/Creatinine Ratio 15.9 Glucose 93 POC Glucose (other) Calcium 9.3 POC Ioniz Calcium Jeffery Total Bilirubin 1.0 AST 13 L ALT 17 Alkaline Phosphatase 80 Troponin I < 0.015 Total Protein 8.1 Albumin 3.7 Globulin 4.4 H Albumin/Globulin Ratio 0.8 L Lipase 374 10/22/18 10/22/18 10/23/18 13:12 18:32 00:31 WBC RBC Hgb POC Hgb 12.6 L Hct POC Hct 37 L MCV MCH MCHC RDW Std Deviation RDW Coeff of Tricia Plt Count MPV Neutrophils % (Manual) Lymphocytes % (Manual) Reactive Lymphs % (Man) Monocytes % (Manual) Eosinophils % (Manual) Neutrophils # (Manual) Total Absolute Neuts Lymphocytes # (Manual) Reactive Lymphs # Total Abs Lymphocytes Monocytes # (Manual) Eosinophils # (Manual) Platelet Estimate PT INR APTT PTT Ratio D-Dimer POC Sodium 141 Sodium POC Potassium 4.1 Potassium POC Chloride 104 Chloride Carbon Dioxide POC Total CO2 22 L Anion Gap POC Anion Gap 20.0 POC BUN 44 H BUN Creatinine POC Creatinine 2.8 H Est Cr Clr Drug Dosing Est GFR ( Amer) Est GFR (Non-Af Amer) BUN/Creatinine Ratio Glucose POC Glucose (other) 99 Calcium POC Ioniz Calcium Jeffery 1.18 Total Bilirubin AST ALT Alkaline Phosphatase Troponin I 0.899 H* 0.870 H* Total Protein Albumin Globulin Albumin/Globulin Ratio Lipase 10/23/18 10/23/18 06:10 06:10 WBC RBC Hgb POC Hgb Hct POC Hct MCV MCH MCHC RDW Std Deviation RDW Coeff of Tricia Plt Count MPV Neutrophils % (Manual) Lymphocytes % (Manual) Reactive Lymphs % (Man) Monocytes % (Manual) Eosinophils % (Manual) Neutrophils # (Manual) Total Absolute Neuts Lymphocytes # (Manual) Reactive Lymphs # Total Abs Lymphocytes Monocytes # (Manual) Eosinophils # (Manual) Platelet Estimate PT 37.5 H INR 4.0 H APTT PTT Ratio D-Dimer POC Sodium Sodium POC Potassium Potassium POC Chloride Chloride Carbon Dioxide POC Total CO2 Anion Gap POC Anion Gap POC BUN BUN Creatinine POC Creatinine Est Cr Clr Drug Dosing Est GFR ( Amer) Est GFR (Non-Af Amer) BUN/Creatinine Ratio Glucose POC Glucose (other) Calcium POC Ioniz Calcium Jeffery Total Bilirubin AST ALT Alkaline Phosphatase Troponin I 0.709 H* Total Protein Albumin Globulin Albumin/Globulin Ratio Lipase Diagnostic Findings Cardiac catheterization performed at [facility] on 08/24/2018: Normal coronary arteries without evidence of obstructive coronary disease. Pulmonary hypertension with mean pulmonary pressure 43 millimeters of mercury. Mildly elevated pulmonary capillary wedge pressure with a mean value of 18 millimeters of mercury. Normal cardiac index Echocardiogram performed today reveals mild aortic insufficiency with normal gradients across the mechanical aortic valve. Overall LV systolic function is slightly reduced with regional wall motion abnormalities. There is moderate mitral regurgitation. Imaging studies performed at the time of admission revealed notable splenomegaly and hepatomegaly. Patient also had dilation of the at ascending aorta measuring 3.6 centimeters in its greatest dimension. ECG Additional Comments: Atrial flutter with controlled ventricular response
--- NOTE | 2018-10-23 13:41 | Hospitalist Progress Note ---
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 Has been on chronic fungal suppression therapy for 10 years post-operatively, now with active infection. - Getting blood and fungal cultures now - Start caspofungin and possibly amphotericin per [place] ID (2) Atypical chest pain: Heart catheterization in August of this year revealed no significant coronary artery disease. Moderate pulmonary hypertension was noted however. Troponins on 10/22 were stable at 0.9->0.7. Seen by cardiology without concern for acute thrombotic event. - Follow up echo - Appreciate cardiology recs (3) Paroxysmal atrial flutter: No known prior atrial flutter. - Presently on anticoagulation for his aortic heart valve with INR of 4.0 on 10/23 - Rate controlled on Toprol XL 75mg - Offered cardioversion by Dr. Santana, but declined on 10/23 (4) History of aortic valve replacement: S/p mechanical aortic valve replacement in 2007 for congenital cardiac issues. - Continue anticoagulation - Likely INR range is 2.5-3.5 instead of normal 2-3. (5) Congenital heart disease: See above (6) Essential hypertension: Treated with metoprolol and hydralazine. BP in desired range while inpatient. - Continue home meds (7) Intrinsic asthma: Currently stable. - Continue inhalers as before (8) DVT prophylaxis: On warfarin for anticoagulation Subjective Feeling well today. No further chest pain. Reports no fevers/chills, chest pain, shortness of breath, abdominal pain, nausea, or vomiting. Review of Systems Review of Systems: All systems reviewed & are unremarkable except as noted in HPI & below Physical Exam Constitutional: WD/WN, vitals as above Eyes: PERRL, conjunctivae normal, anicteric sclerae ENMT: external ear and nose normal, oropharynx normal Neck: trachea midline, no thyromegaly Respiratory: normal respiratory effort, lungs clear to auscultation Gastrointestinal (Abdomen): normal bowel sounds, soft, nontender, no hepatosplenomegaly Musculoskeletal: no cyanosis or clubbing, extremities motor strength 5/5 Skin: no rashes, warm and dry Neurologic: patellar DTR's 2+ bilat, sensation intact Results & Data Vital Signs (Past 12 Hours) Vital Signs Temp Pulse Resp BP Pulse Ox 10/23/18 11:29 37.1 C 67 18 112/74 99 10/23/18 07:41 37.0 C 71 17 122/71 97 10/23/18 04:00 36.7 C 84 16 103/70 98
[2018-10-23] MEDS ORDERED: CASPOFUNGIN IV ONE (15:45)
[2018-10-23] MEDS ORDERED: SODIUM CHLORIDE 0.9% IV ONE (15:45)
[2018-10-23] MEDS ORDERED: WARFARIN SOD 6 MG TAB PO SCH (16:00)
--- NOTE | 2018-10-23 17:59 | Discharge Summary ---
Date of Service October 23, 2018 Admission HPI Per Admitting Provider 48-year-old male with congenital heart disease. He had supra aortic stenosis and underwent metallic aortic valve replacement in 2007. 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 He developed mid chest pain while at rest today described as a sharp pain associated with shortness of breath it radiated to the neck and arms. Interestingly, just 2 months ago he had a heart catheterization that revealed no critical coronary artery disease but he was found to have moderate pulmonary hypertension. He was given aspirin, IV metoprolol, and lo razepam in the ED and is now asymptomatic. EKG reveals atrial flutter which she has had in the past. Heart rate is controlled. He has a previous history of paroxysmal atrial tachycardia. He currently takes metoprolol succinate 75 mg daily which will be continued. He is also on chronic Coumadin therapy with current INR 4.2. Cardiac echo will be repeated and cardiology consultation requested. Principal Diagnosis Fungemia Chest pain Discharge Exam Constitutional WD/WN, vitals as above Eyes EOM intact bilaterally; no conjunctival abnormality ENMT external ear and nose normal, oropharynx normal Neck trachea midline, no thyromegaly normal visual inspection Respiratory normal respiratory effort, lungs clear to auscultation no respiratory distress Cardiovascular RRR, no murmur, no edema Gastrointestinal (Abdomen) Inspection/Auscultation: abdomen normal to inspection; abdomen not distended Musculoskeletal no cyanosis or clubbing, extremities motor strength 5/5 Skin no rashes, warm and dry Neurologic moves all extremities and awake Psychiatric Orientation: alert, oriented to person and cooperative Discharge Data Allergies Allergy/AdvReac Type Severity Reaction Status Date / Time chlorhexidine Allergy Severe RASH Verified 10/22/18 14:40 isopropyl alcohol Allergy Severe RASH Verified 10/22/18 14:40 adhesive Allergy Intermediate RASH Verified 10/22/18 14:40 cat dander Allergy Unknown . Verified 10/22/18 14:40 amphotericin B AdvReac Severe severe Verified 10/22/18 14:40 rigors, chills/fever/sweats-hypothalmus irregularity edetic acid AdvReac Severe Coma and Verified 10/22/18 14:40 'bowels shut down' glycerin AdvReac Severe Coma and Verified 10/22/18 14:40 'bowels shut down' propofol AdvReac Severe Coma and Verified 10/22/18 14:40 'bowels shut down' heparin AdvReac Unknown Bleed out Verified 10/22/18 14:40 Egg Phospholipids AdvReac Severe Coma and Uncoded 10/22/18 14:40 'bowels shut down' Consultations 10/22/18 18:17 Consult Cardiology Routine Ordered Studies 10/22/18 13:26 CT abdomen wo con Stat CT chest wo con Stat Hospital Course (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 Has been on chronic fungal suppression therapy for 10 years post-operatively, now with active infection. - Getting blood and fungal cultures now - Start caspofungin and possibly amphotericin per [place] ID - On 10/23, patient decided to leave [place]. Discussed the risks of this including having an untreated infection. He will follow up with his [place] physicians. He was amenable to receiving 1 dose of caspofungin 150mg IV before leaving. (2) Atypical chest pain: Heart catheterization in August of this year revealed no significant coronary artery disease. Moderate pulmonary hypertension was noted however. Troponins on 10/22 were stable at 0.9->0.7. Seen by cardiology without concern for acute thrombotic event. - Follow up echo - Appreciate cardiology recs (3) Paroxysmal atrial flutter: No known prior atrial flutter. - Presently on anticoagulation for his aortic heart valve with INR of 4.0 on 10/23 - Rate controlled on Toprol XL 75mg - Offered cardioversion by Dr. Santana, but declined on 10/23 (4) History of aortic valve replacement: S/p mechanical aortic valve replacement in 2007 for congenital cardiac issues. - Continue anticoagulation - Likely INR range is 2.5-3.5 instead of normal 2-3. (5) Congenital heart disease: See above (6) Essential hypertension: Treated with metoprolol and hydralazine. BP in desired range while inpatient. - Continue home meds (7) Intrinsic asthma: Currently stable. - Continue inhalers as before (8) DVT prophylaxis: On warfarin for anticoagulation Total Time Total Time Spent Total Time Spent (In Minutes): 45 Discharge Plan Discharge Items Patient Disposition: Against Medical Advice Diet: Regular Admission Data Admit Date/Time: 10/23/18 13:41 Attending Provider: Marco Lopez Admit Provider: Ed Villagomez Primary Care Provider: Aguila Pollard Other Providers: [place] Simental Service: Medical
[2018-10-24] MEDS ORDERED: WARFARIN SOD 5 MG TAB PO SCH (16:00)
== END 2018-10-23 17:59 | disposition left against medical advice (07) | DRG 868 ==
LOC: ED 12:25 → 2E 12:25 → SUATTDRO 16:12 → 2E 18:03

== ENCOUNTER 2019-07-25 20:21 | Observation (INO) ==
[2019-07-25] MEDS ORDERED: ACETAMINOPHEN 500 MG TAB PO STA (21:15)
--- NOTE | 2019-07-25 21:24 | XRay Report ---
XR chest 1V portable CLINICAL HISTORY: 49 years-old Male presenting with Chest Pain. TECHNIQUE: Portable upright AP view of the chest was obtained. COMPARISON: 07/19/2019. FINDINGS: Median sternotomy wires, mediastinal surgical clips, and prosthetic aortic valve noted. Atheroscleros is of the aortic arch. Dominance of the main pulmonary artery. Prominence of pulmonary vasculature. S urgical clips also project over the right apex. Blunting of the costophrenic angles is unchanged from prior exam and may relate to hyperinflation. No focal opacity. No large effusion or pneumothorax. De generative changes of the thoracic spine. Upper abdomen normal. IMPRESSION: 1. Cardiomegaly with mild volume overload. No advanced congestive change or pulmonary edema. 2. Pulmonary artery hypertension. 3. Chronic blunting of the costophrenic angles. No pleural effusion. ACT 112: Negative or not required by law. Electronically signed by: Servando Camarillo M.D. 07/25/2019 9:22 PM
[2019-07-25 21:31] LABS: Basophils # (auto) 0.01 K/uL (0-0.2); Basophils % (auto) 0.4 %; Eosinophils # (auto) 0.05 K/uL (0-0.5); Eosinophils % (auto) 1.9 %; Hematocrit (blood only) 34.8 % (42-52); Hemoglobin 11.9 g/dL (14.0-18.0); Immature Granulocytes # (auto) 0.01 K/uL (0.00-0.02); Immature Granulocytes % (auto) 0.4 %; Lymphocytes # (auto) 0.76 K/uL (1.2-3.4); Lymphocytes % (auto) 28.7 %; Mean Corpuscular Hemoglobin 28.3 pg (25-34); Mean Corpuscular Hgb Conc 34.2 g/dL (32-36); Mean Corpuscular Volume 82.9 fL (80-100); Mean Platelet Volume 9.9 fL (7.4-10.4); Monocytes % (auto) 15.1 %; Neutrophils # (auto) 1.42 K/uL (1.4-6.5); Neutrophils % (auto) 53.5 %; Platelet Count 128 K/uL (130-400); RDW Coefficient of Variation 15.4 % (11.5-14.5); RDW Standard Deviation 46.6 fL (36.4-46.3); White Blood Count 2.65 K/uL (4.8-10.8)
[2019-07-25 21:43] LABS: INR 2.8 (0.9-1.1); Partial Thromboplastin Ratio 1.2; Partial Thromboplastin Time 31.6 Seconds (21.0-31.0); Prothrombin Time 26.6 Seconds (9.0-12.0)
[2019-07-25 21:54] LABS: Alanine Aminotransferase 14 U/L (12-78); Albumin Level 3.4 gm/dl (3.4-5.0); Aspartate Aminotransferase 13 U/L (15-37); BUN Creatinine Ratio 19.2 (10-20); Blood Urea Nitrogen 49 mg/dl (7-18); Calcium 8.7 mg/dl (8.5-10.1); Carbon Dioxide 24 mmol/L (21-32); Chloride 104 mmol/L (98-107); Creatinine Clr Calc Pharmacy 28.8 ml/min; Est GFR (African American) 32.6; Est GFR (Non-African American) 28.1; Glucose 96 mg/dl (70-99); Lipase 519 U/L (73-393); Potassium 4.7 mmol/L (3.5-5.1); Sodium 135 mmol/L (136-145)
[2019-07-25 21:59] LABS: Albumin Globulin Ratio 0.8 (0.9-2); Alkaline Phosphatase 93 U/L (45-117); Bilirubin,Total 0.7 mg/dl (0.2-1); Creatine Kinase 31 U/L (39-308); Creatine Kinase MB < 1.0 ng/ml (0.5-3.6); Globulin 4.3 gm/dl (2.5-4.0); Total Protein 7.7 gm/dl (6.4-8.2); Troponin I < 0.015 ng/ml (0-0.045)
--- NOTE | 2019-07-26 00:05 | History & Physical Report ---
Date of Service July 25, 2019 Assessment & Plan (1) Chest pain: Tavon is a 49-year-old male with a past medical history of supravalvular aortic stenosis and congenital aortic stenosis with bicuspid aortic valve status post aortotomy at 10 months of age, patch augmentation aortotomy with valve commissurotomy at 11 years of age, and Bentall procedure with [employer] mechanical valve and aortic root composite graft with jag-arch replacement in 2007. 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 He also has a history of hepatitis C post Harvoni treatment, chronic kidney disease with a baseline creatinine around 22.3, and atrial arrhythmia with atrial tachycardia with RVR. He had a cardiac catheterization in 08/2018 without evidence of coronary artery disease, but which showed moderate to severe pulmonary hypertension and a normally function aortic valve prosthesis. Chest pain with shortness of breath and diaphoresis Patient with an episode of intense palpitations, chest pain radiating to the shoulder and neck, and cold diaphoresis in his hands while at the grocery store Has had increased shortness of breath for several weeks and some increasing episodes of palpitations Symptoms improved without chest pain or shortness of breath at rest at time of HPI Has a history of atrial tachycardia, history of cardiomyopathy no observed ventricular arrhythmia on initial chart review Troponin negative, trend every 8 hours x3 total EKG shows a flutter with variable block, no acute ST changes CBC daily Admit on MedSurg telemetry for monitoring. He has a history of atrial tachycardia, given his existing cardiomyopathy he is also at risk for monomorphic VT [employer] mechanical valve and aortic root composite graft Continue warfarin 5 mg // 6 mg /// - INR daily INR 2.8 on admission Cardiomyopathy Last echo 10/2018 showed EF 40-55%, LVD, RVD, left atrial moderate dilation, right atrial moderate dilation Continue metoprolol 100 mg p.o. 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 CBC daily Diet: Heart healthy DVT prophylaxis: On warfarin CODE STATUS: Full code (2) Atrial tachycardia: (3) Paroxysmal atrial flutter: (4) Essential hypertension: (5) Cardiomyopathy: (6) Fungemia: (7) History of aortic valve replacement: (8) Congenital heart disease: History of Present Illness Chief Complaint: Chest pain, shortness of breath Primary Care Provider: Aguila Pollard MD Tavon is a 49-year-old male with a past medical history of supravalvular aortic stenosis and congenital aortic stenosis with bicuspid aortic valve status post aortotomy at 10 months of age, patch augmentation aortotomy with valve commissurotomy at 11 years of age, and Bentall procedure with [employer] mechanical valve and aortic root composite graft with jag-arch replacement in 2007. 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 He also has a history of hepatitis C post Harvoni treatment, chronic kidney disease with a baseline creatinine around 22.3, and atrial arrhythmia with atrial tachycardia with RVR. He had a cardiac catheterization in 08/2018 without evidence of coronary artery disease, but which showed moderate to severe pulmonary hypertension and a normally function aortic valve prosthesis. Tavon reports that he has had progressive increase in dyspnea over the last month. In addition for the last year but much more prominently in the last few weeks he has had strong bursts of painful, prominent palpitations in his chest. He wa s at the grocery store today when he developed sudden onset shortness of breath, chest pain, and painful palpitations which forced him to sit down. He was not lightheaded or presyncopal, but reported he felt very weak" was not sure if eyes can be able to make it to the car ". He notes he had chest pain in the center of his chest which traveled to his back and neck which were sore and his hands w ere cold and clammy/diaphoretic. He sat down, and rested for several minutes, before slowly going to the car when his symptoms had improved slightly. He was able to bring his dogs home, but continued to have shortness of breath and chest pain and on the advice of his family presented to the emergency department. He is in no distress, with no chest pain but intermittent palpitations at time of v isit. He denies any fever, chills, sweats. He has infected prostheses as noted above, he reports that he had positive fungal cultures a few weeks ago and is currently undergoing antifungal treatment in addition to his chronic suppressive treatment. No abdominal pain, nausea, vomiting, diarrhea, constipation. He was seen by outpatient cardiology on 07/18/2019 for increased shortness of breath and dyspnea. Evaluation at that time noted atrial flutter with controlled ventricular response, left ventricular hypertrophy with QRS widening and secondary STT changes, it was ultimately felt shortness of breath was likely factorial with underlying lung disease, his existing cardiac disease, and potential for viral illness. Medical history: See above Surgical history: See above, reviewed in EMR Medications: Reviewed in EMR. Allergies: Allergic to amphotericin, chlorhexidine, propofol, and glycerin. Sensitive to heparin. Social: Lives in [place] lives in a home by himself with no problems ambulating normally. Family is out of state. Denies current or former tobacco use. Denies alcohol use. Denies recreational drug use. CODE STATUS: Full code Allergies Allergy/AdvReac Type Severity Reaction Status Date / Time amphotericin B Allergy Severe severe Verified 07/25/19 21:51 rigors, chills/fever/sweats-hypothalmus irregularity chlorhexidine Allergy Severe RASH Verified 07/25/19 21:51 edetic acid Allergy Severe Coma and Verified 07/25/19 21:51 'bowels shut down' egg Allergy Severe coma and Verified 07/25/19 21:51 "bowels shut down" glycerin Allergy Severe Coma and Verified 07/25/19 21:51 'bowels shut down' isopropyl alcohol Allergy Severe RASH Verified 07/25/19 21:51 propofol Allergy Severe Coma and Verified 07/25/19 21:51 'bowels shut down' adhesive Allergy Intermediate RASH Verified 07/25/19 21:51 heparin Allergy Intermediate Bleed out Verified 07/25/19 21:51 cat dander Allergy Mild WATERY EYES Verified 07/25/19 21:51 Home Medications Home Medications Medication Instructions Recorded Confirmed Type albuterol sulfate [Ventolin HFA] 2 puff INHALATION QID PRN 10/22/18 07/25/19 History furosemide [Lasix] 40 mg PO QAM 10/22/18 07/25/19 History fluocinonide 1 applic TOPICAL BID PRN 06/09/19 07/25/19 History melatonin 5 mg PO HS 06/09/19 07/25/19 History metoprolol succinate [Toprol XL] 100 mg PO HS 06/09/19 07/25/19 History mometasone [Elocon] 1 applic TOPICAL BID PRN 06/09/19 07/25/19 History posaconazole [Noxafil] 400 mg PO BID 06/09/19 07/25/19 History warfarin [Coumadin] 5 mg PO MOWEFR 06/09/19 07/25/19 History warfarin [Coumadin] 6 mg PO SUTUTHSA 06/09/19 07/25/19 History micafungin 150 mg IV DAILY 07/25/19 07/25/19 History Past Med/Surg History Medical History Anemia Asthma Atrial flutter (Acute) Atypical chest pain (Acute) Bicuspid aortic valve HX REPLACED 2007 Cardiomyopathy Chronic kidney disease ? 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 PAZ Peripheral neuropathy Surgical History H/O heart surgery (Acute) mechanical aortic [facility]all[facility] History of anesthesia reaction SEE ALLERGIES LAST HEART CATH/WAS AWAKE DURING ENTIRE PROCEDURE LAST COLONOSCOPY-WOKE UP IN MIDDLE OF PROCEDURE History of aortic valve replacement 25 millimeter [employer] valve placed in 2007, [facility]. History of cardiac cath (TOTAL 5 OR 6) LAST ONE AUGUST 2018 History of colonoscopy History of herniorrhaphy History of tooth extraction Family History Other Heart disease Hypertension Lung disease Social History Preferred Language: Malian Communication Ability: Effective Dredge Mate Required: No Beliefs That Will Affect Care: None Current Living Situation: Alone current occupation: Disabled Other Information That Helps Us Care for You: No Feels Safe at Home: Yes Safety Concerns: Feels Safe At This Time Smoking Status: Never smoker Tobacco Type: cigarettes ; Second Hand Exposure: Yes (PAST HX OF EXPOSURE) ; Hx Alcohol Use: No Hx Substance Use: No Review of Systems Review of Systems: All systems reviewed & are unremarkable except as noted in HPI & below Physical Exam Physical Exam: General: A&Ox3. NAD. Cooperative. No Janeway lesions or splinter hemorrhages appreciated. HEENT: Atraumatic, normocephalic. Pulm: CTAB A&P. -wheezes, -rales, -rhonchi. Symmetrical chest rise. No increase work of breathing. No respiratory distress. Cardiac: Loud S1 and S2 click at right upper sternal border, soft systolic ejection murmur at right upper sternal border, heart rate irregular. No JVD. Radial pulses intact and symmetrical. Abdominal: Nontender, nondistended, soft. BS present. Visual ocampo are full to confrontation. Pupils are equal and react to light and accomidation. Visual acuity grossly intact. Hearing is grossly intact. Speech fluent without dysarthria. Strength: RUE: Shoulder flexion/extension/internal rotation/external rotation, elbow flexion/extension, finger flexion/extension, convolute tube winder strength, interosseous 5/5 LUE: Shoulder flexion/extension/internal rotation/external rotation, elbow flexion/extension, finger flexion/extension, convolute tube winder strength, interosseous 5/5 RLE: Hip flexion, knee flexion/extension, ankle plantar flexion/dorsiflexion 5/5 LLE: Hip flexion, knee flexion/extension, ankle plantar flexion/dorsiflexion 5/5 Results & Data Vital Signs (Past 12 Hours) Vital Signs Temp Pulse Pulse Resp BP BP Pulse Ox 07/25/19 23:00 95 H 13 129/94 97 07/25/19 22:30 98 H 23 121/97 97 07/25/19 22:00 89 29 H 125/83 97 07/25/19 21:30 95 H 22 144/84 H 97 07/25/19 21:00 96 H 19 121/97 98 07/25/19 20:56 99 07/25/19 20:43 116 H 18 130/79 07/25/19 20:23 36.8 C 92 H 18 138/90 100 Supervising Physician Co-Signing Physician Notes Patient was seen and examined by me personally. I reviewed the chart, the orders and discussed the case in detail with Dr. Servando Cherry MD . I read this H&P and agree with its contents to entirety. Resident Activity Tracking Resident Involvement: Resident Care Provided Care Provided: Adult [facility]
[2019-07-26] MEDS ORDERED: METOPROLOL SUCC 50MG EXT REL TAB PO STA (00:10)
[2019-07-26] MEDS ORDERED: NITROGLYCERIN SL 0.4 MG/TAB TAB SL PRN (01:04)
[2019-07-26] MEDS ORDERED: ACETAMINOPHEN 325 MG TAB PO PRN (01:04)
[2019-07-26] MEDS ORDERED: ALBUTEROL HFA 8 GM INHALER INH PRN (01:04)
[2019-07-26] MEDS ORDERED: POLYETHYLENE (MIRALAX) 17 GM PACK PO PRN (01:04)
[2019-07-26] MEDS ORDERED: WARFARIN SOD 6 MG TAB PO SCH (01:30)
--- NOTE | 2019-07-26 02:27 | Emergency Department Note ---
Entered by Anthony Brandt acting as a scribe for History of Present Illness General Chief complaint: Cardiac Assessment Stated complaint: HIGH BP, TIGHTNESS, BURNING LUNGS, HIGH PULSE Time Seen by Provider: 07/25/19 20:34 Source: patient History of Present Illness Onset (ago): hour(s) (few) Location: chest Pain Consistency: + constant Maximum Pain Intensity: 6 Quality: + other (tightness) Associated symptoms: + shortness of breath and + other (arm, shoulder, chest, neck soreness) The patient is a 49 y/o male who presents to the ED w/ CC of constant chest tightness beginning a few hours ago. The patient states he was in the grocery store this evening when his symptoms began. He reports he made a loop around the store and became extremely short of breath. The patient notes he then developed chest tightness with arm, shoulder, chest, and neck soreness. He states he was also wheezing. The patient reports he has had a history of these issues for the past few years, but tonight his symptoms were most severe. He notes he has been following up with Dr. Simental, Cardiology. The patient states he went home after the store and relaxed without relief of his symptoms. He reports he checked his blood pressure in the store, and it was 149/116 and his pulse was 112. The patient notes a headache for the past few days that normally goes away. He states he is still receiving antifungal and antibiotics through his PICC line. He has a history of an aortic valve replacement. Home Medications Home Medications Medication Instructions Recorded Confirmed Type albuterol sulfate [Ventolin HFA] 2 puff INHALATION QID PRN 10/22/18 07/27/19 History furosemide [Lasix] 60 mg PO QAM 10/22/18 07/27/19 History fluocinonide 1 applic TOPICAL BID PRN 06/09/19 07/27/19 History melatonin 5 mg PO HS 06/09/19 07/27/19 History metoprolol succinate [Toprol XL] 100 mg PO HS 06/09/19 07/27/19 History mometasone [Elocon] 1 applic TOPICAL BID PRN 06/09/19 07/27/19 History posaconazole [Noxafil] 400 mg PO BID 06/09/19 07/27/19 History warfarin [Coumadin] 5 mg PO MOWEFR 06/09/19 07/27/19 History warfarin [Coumadin] 6 mg PO SUTUTHSA 06/09/19 07/27/19 History micafungin 150 mg IV DAILY 07/25/19 07/27/19 History budesonide 2 ml PRN 07/27/19 History Allergies Allergy/AdvReac Type Severity Reaction Status Date / Time amphotericin B Allergy Severe severe Verified 07/28/19 10:55 rigors, chills/fever/sweats-hypothalmus irregularity chlorhexidine Allergy Severe RASH Verified 07/28/19 10:55 edetic acid Allergy Severe Coma and Verified 07/28/19 10:55 'bowels shut down' egg Allergy Severe coma and Verified 07/28/19 10:55 "bowels shut down" glycerin Allergy Severe Coma and Verified 07/28/19 10:55 'bowels shut down' isopropyl alcohol Allergy Severe RASH Verified 07/28/19 10:55 propofol Allergy Severe Coma and Verified 07/28/19 10:55 'bowels shut down' adhesive Allergy Intermediate RASH Verified 07/28/19 10:55 heparin Allergy Intermediate Bleed out Verified 07/28/19 10:55 cat dander Allergy Mild WATERY EYES Verified 07/28/19 10:55 Past Med/Surg History Medical History Anemia Asthma Atrial flutter (Acute) Atypical chest pain (Acute) Bicuspid aortic valve HX REPLACED 2007 Cardiomyopathy Chronic kidney disease ? 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 SIMENTAL Peripheral neuropathy Surgical History H/O heart surgery (Acute) mechanical aortic valve and arch repair ([place]) 2007, [facility] History of anesthesia reaction SEE ALLERGIES LAST HEART CATH/WAS AWAKE DURING ENTIRE PROCEDURE LAST COLONOSCOPY-WOKE UP IN MIDDLE OF PROCEDURE History of aortic valve replacement 25 millimeter [employer] valve placed in 2007, [facility]. History of cardiac cath (TOTAL 5 OR 6) LAST ONE AUGUST 2018 History of colonoscopy History of herniorrhaphy History of tooth extraction Family History Other Heart disease Hypertension Lung disease Social History Preferred Language: Greek Communication Ability: Effective Certification Engineer Required: No Beliefs That Will Affect Care: None marital status: Single Current Living Situation: Alone current occupation: Disabled Feels Safe at Home: Yes Safety Concerns: Feels Safe At This Time Smoking Status: Never smoker Tobacco Type: cigarettes ; Second Hand Exposure: Yes (PAST HX OF EXPOSURE) ; Hx Alcohol Use: No Hx Substance Use: No Review of Systems See HPI for pertinent positives & negatives. and A total of 10 systems reviewed and were otherwise negative Physical Exam Vital Signs Vital Signs - 24 hr 07/25/19 20:23 07/25/19 20:39 07/25/19 20:43 Temperature 36.8 C Temperature Source Oral Pulse Rate 92 H Pulse Rate [Apical] 116 H Pulse Rate from SpO2 Sensor Pulse Rhythm [Apical] Irregular Pulse Strength [Apical] Normal Respiratory Rate 18 18 Respiratory Effort / Characteristics Non-Labored Short of Breath Non-Labored Spontaneous Respiratory Depth Normal Shallow Respiratory Pattern Regular Blood Pressure 138/90 Blood Pressure [Left Arm] 130/79 Blood Pressure Mean 106 Blood Pressure Mean [Left Arm] 96 Pulse Oximetry 100 Oxygen Delivery Method Room Air Sepsis Recent Fever Within 48 Hours No Sepsis New/Unexplained Change in Mental Status No Sepsis Action Taken by Nursing No Action Required 07/25/19 20:56 07/25/19 21:00 07/25/19 21:30 Temperature Temperature Source Pulse Rate 96 H 95 H Pulse Rate [Apical] Pulse Rate from SpO2 Sensor 90 94 H Pulse Rhythm [Apical] Pulse Strength [Apical] Respiratory Rate 19 22 Respiratory Effort / Characteristics Respiratory Depth Respiratory Pattern Blood Pressure 121/97 144/84 H Blood Pressure [Left Arm] Blood Pressure Mean 112 106 Blood Pressure Mean [Left Arm] Pulse Oximetry 99 98 97 Oxygen Delivery Method Room Air Room Air Sepsis Recent Fever Within 48 Hours Sepsis New/Unexplained Change in Mental Status Sepsis Action Taken by Nursing 07/25/19 22:00 07/25/19 22:30 07/25/19 23:00 Temperature Temperature Source Pulse Rate 89 98 H 95 H Pulse Rate [Apical] Pulse Rate from SpO2 Sensor 90 97 H 102 H Pulse Rhythm [Apical] Pulse Strength [Apical] Respiratory Rate 29 H 23 13 Respiratory Effort / Characteristics Respiratory Depth Respiratory Pattern Blood Pressure 125/83 121/97 129/94 Blood Pressure [Left Arm] Blood Pressure Mean 91 106 113 Blood Pressure Mean [Left Arm] Pulse Oximetry 97 97 97 Oxygen Delivery Method Sepsis Recent Fever Within 48 Hours Sepsis New/Unexplained Change in Mental Status Sepsis Action Taken by Nursing 07/25/19 23:30 Temperature Temperature Source Pulse Rate 100 H Pulse Rate [Apical] Pulse Rate from SpO2 Sensor 99 H Pulse Rhythm [Apical] Pulse Strength [Apical] Respiratory Rate 18 Respiratory Effort / Characteristics Respiratory Depth Respiratory Pattern Blood Pressure 131/92 Blood Pressure [Left Arm] Blood Pressure Mean 97 Blood Pressure Mean [Left Arm] Pulse Oximetry 98 Oxygen Delivery Method Sepsis Recent Fever Within 48 Hours Sepsis New/Unexplained Change in Mental Status Sepsis Action Taken by Nursing GENERAL: Awake, alert, well-appearing, in no acute distress HENT: Normocephalic, atraumatic. Oropharynx unremarkable. EYES: Normal conjunctiva. Sclera non-icteric. NECK: Supple. No nuchal rigidity. FROM. No JVD. RESPIRATORY: Clear to auscultation. CARDIAC: Regular rate, normal rhythm. Extremities warm and well perfused. Pulses equal. ABDOMEN: Soft, non-distended. No tenderness to palpation. No rebound or guarding. No masses. RECTAL: Deferred. MUSCULOSKELETAL: Chest examination reveals no tenderness. The back is symmetrical on inspection without obvious abnormality. There is no CVA tenderness to palpation. No joint edema. LOWER EXTREMITIES: Calves are equal size bilaterally and non-tender. No edema. No discoloration. NEURO: Normal sensorium. No sensory or motor deficits noted. SKIN: No rash or jaundice noted. Course Course 2106: Past medical records reviewed. The patient was evaluated in room A11B. A complete history and physical exam was performed. 2203: Upon reevaluation, the patient is resting comfortably. I discussed laboratory and radiographic results with him. He verbalized agreement of the treatment plan. The patient will be evaluated for further management and care. 2209: I reviewed the patient's case with Dr. Welsh, [facility] [place] Hospitalist. He will evaluate the patient for further management. Administered Medications Discontinued Medications Acetaminophen (Tylenol) 1,000 mg PO NOW STA Stop: 07/25/19 21:16 Last Admin: 07/25/19 21:23 Dose: 1,000 mg Documented by: [id number] Micafungin Sodium 150 mg/ (Sodium Chloride) 115 mls @ 115 mls/hr IV Q24H [facility]; Protocol Stop: 08/05/19 09:59 Last Infusion: 07/26/19 10:46 Dose: 0 mls/hr Documented by: [id number] Admin: 07/26/19 09:38 Dose: 115 mls/hr Documented by: [id number] Metoprolol Succinate (Toprol Xl) 100 mg PO NOW [facility] Stop: 07/26/19 00:11 Last Admin: 07/26/19 00:53 Dose: 100 mg Documented by: [id number] Miscellaneous (Order Awaiting Action) 1 ea N/A QS [facility] Stop: 08/25/19 07:59 Last Admin: 07/26/19 16:02 Dose: Not Given Documented by: [id number] Admin: 07/26/19 07:30 Dose: Not Given Documented by: [id number] Miscellaneous (Order Awaiting Action) 1 ea N/A QS [facility] Stop: 08/25/19 01:44 Last Admin: 07/26/19 16:02 Dose: Not Given Documented by: [id number] Admin: 07/26/19 07:30 Dose: Not Given Documented by: [id number] Admin: 07/26/19 05:01 Dose: Not Given Documented by: [id number] Warfarin Sodium (Coumadin) 5 mg PO MoWeFr@1600 [facility] Stop: 08/25/19 15:59 Last Admin: 07/26/19 16:02 Dose: 5 mg Documented by: [id number] Warfarin Sodium (Coumadin) 6 mg PO SuTuThSa@1600 [facility] Stop: 08/25/19 01:29 Last Admin: 07/26/19 04:37 Dose: 6 mg Documented by: [id number] Medical Decision Making Differential Diagnosis Differential diagnoses includes but is not limited to acute coronary syndrome, myocardial infarction, pericarditis, pulmonary embolus, aortic dissection, pneumonia, pneumothorax, musculoskeletal, shingles, esophageal. Medical Records Attestation: I reviewed the patient's medical records. Home Medications Current Medication List: was personally reviewed by me Laboratory Data Attestation: I reviewed the patient's lab results. Result diagrams: 07/25/19 20:47 07/26/19 05:34 Lab Results 07/25/19 07/25/19 07/25/19 Range/Units 20:47 20:47 20:47 WBC 2.65 L (4.8-10.8) K/uL RBC 4.20 L (4.7-6.1) M/uL Hgb 11.9 L (14.0-18.0) g/dL Hct 34.8 L (42-52) % MCV 82.9 (80-100) fL MCH 28.3 (25-34) pg MCHC 34.2 (32-36) g/dL RDW Std Deviation 46.6 H (36.4-46.3) fL RDW Coeff of Tricia 15.4 H (11.5-14.5) % Plt Count 128 L (130-400) K/uL MPV 9.9 (7.4-10.4) fL Immature Gran % (Auto) 0.4 % Neut % (Auto) 53.5 % Lymph % (Auto) 28.7 % [place] % (Auto) 15.1 % Eos % (Auto) 1.9 % Baso % (Auto) 0.4 % Immature Gran # (Auto) 0.01 (0.00-0.02) K/uL Neut # (Auto) 1.42 (1.4-6.5) K/uL Lymph # (Auto) 0.76 L (1.2-3.4) K/uL [place] # (Auto) 0.40 (0.11-0.59) K/uL Eos # (Auto) 0.05 (0-0.5) K/uL Baso # (Auto) 0.01 (0-0.2) K/uL PT 26.6 H (9.0-12.0) Seconds INR 2.8 H (0.9-1.1) APTT 31.6 H (21.0-31.0) Seconds PTT Ratio 1.2 Sodium 135 L (136-145) mmol/L Potassium 4.7 (3.5-5.1) mmol/L Chloride 104 (98-107) mmol/L Carbon Dioxide 24 (21-32) mmol/L Anion Gap 8.0 (3-11) BUN 49 H (7-18) mg/dl Creatinine 2.54 H (0.6-1.4) mg/dl Est Cr Clr Drug Dosing 28.8 ml/min Est GFR ( Amer) 32.6 Est GFR (Non-Af Amer) 28.1 BUN/Creatinine Ratio 19.2 (10-20) Glucose 96 (70-99) mg/dl Calcium 8.7 (8.5-10.1) mg/dl Total Bilirubin 0.7 (0.2-1) mg/dl AST 13 L (15-37) U/L ALT 14 (12-78) U/L Alkaline Phosphatase 93 (45-117) U/L Total Creatine Kinase 31 L (39-308) U/L CK-MB (CK-2) < 1.0 (0.5-3.6) ng/ml CK/CKMB % Calc TNP Troponin I < 0.015 (0-0.045) ng/ml Total Protein 7.7 (6.4-8.2) gm/dl Albumin 3.4 (3.4-5.0) gm/dl Globulin 4.3 H (2.5-4.0) gm/dl Albumin/Globulin Ratio 0.8 L (0.9-2) Lipase 519 H (73-393) U/L Imaging Data Radiologist's Impression: Radiology results as stated below per my review and the radiologist's interpretation: XR chest 1V portable CLINICAL HISTORY: 49 years-old Male presenting with Chest Pain. TECHNIQUE: Portable upright AP view of the chest was obtained. COMPARISON: 07/19/2019. FINDINGS: Median sternotomy wires, mediastinal surgical clips, and prosthetic aortic valve noted. Atherosclerosis of the aortic arch. Dominance of the main pulmonary dara ry. Prominence of pulmonary vasculature. Surgical clips also project over the right apex. Blunting of the costophrenic angles is unchanged from prior exam and may relate to hyperinflation. No focal opacity. No large effusion or pneumothorax. Degenerative changes of the thoracic spine. Upper abdomen normal. IMPRESSION: 1. Cardiomegaly with mild volume overload. No advanced congestive change or pu lmonary edema. 2. Pulmonary artery hypertension. 3. Chronic blunting of the costophrenic angles. No pleural effusion. ACT 112: Negative or not required by law. Electronically signed by: Servando Camarillo M.D. 07/25/2019 9:22 PM ECG Data Attestation: I personally reviewed and interpreted this ECG as follows: Indication: + chest pain Rate (beats per minute): 101 Rhythm: + atrial flutter ECG ST segments: + T-wave inversions (Inferior and lateral) Comparison ECG Date: from (10/23/18) Change: no significant change Blood Pressure Blood Pressure Findings: Elevated blood pressure Blood Pressure Disposition: further management by hospitalist MDM Narrative This is a 49-year-old male who is an extensive cardiac history is currently receiving amphotericin B via PICC line. His EKG is unchanged from previous and his troponin level is also not elevated. Based on this I feel the patient should be admitted due to his past medical history. I did discuss the case with the hospitalist who did agree to admit the patient. Patient was in agreement with the treatment plan peer Impression & Plan Acute dyspnea Discharge Plan Visit Data *Final* Discharge Date/Time: 07/26/19 00:48 Chief Complaint: Cardiac Assessment Stated Complaint: HIGH BP, TIGHTNESS, BURNING LUNGS, HIGH PULSE ED Provider: Juan Carlos Self Discharge Problem: Acute dyspnea Patient Disposition: Admitted As Inpatient Condition: Good Discharge Instructions Interventions: ED Discharge Assessment Last Done: 07/26/19 00:48 The scribe's documentation has been prepared under my direction and personally reviewed by me in its entirety. I confirm that the note above accurately reflects all work, treatment, procedures, and medical decision making performed by me.
--- NOTE | 2019-07-26 05:58 | Billing Data ---
Date of Service July 25, 2019 Coding Level of Care Code 86812 OBS Care - Level 3
[2019-07-26 06:10] LABS: INR 2.4 (0.9-1.1); Prothrombin Time 22.9 Seconds (9.0-12.0)
[2019-07-26 06:31] LABS: Calcium 8.3 mg/dl (8.5-10.1); Creatinine Clr Calc Pharmacy 27.2 ml/min; Est GFR (African American) 32.1; Est GFR (Non-African American) 27.7
[2019-07-26 06:35] LABS: Troponin I 0.041 ng/ml (0-0.045)
[2019-07-26] MEDS: [UNRECOGNIZED DRUG - OTHER] SCH ×2 (07:30→16:02)
[2019-07-26 08:09] LABS: Chol HDL Ratio 9; Cholesterol 146 mg/dl (0-200); HDL Cholesterol 17 mg/dl; LDL Cholesterol Calculated 58 mg/dl; Triglycerides 357 mg/dl (0-150); VLDL Cholesterol 71 mg/dl
[2019-07-26] MEDS ORDERED: MICAFUNGIN IV SCH (09:00)
[2019-07-26] MEDS ORDERED: MICAFUNGIN SODIUM IV SCH (10:00)
[2019-07-26] MEDS ORDERED: SODIUM CHLORIDE 0.9% IV SCH (10:00)
--- NOTE | 2019-07-26 11:45 | Electrocardiogram Report ---
Test Reason : Blood Pressure : / mmHG Vent. Rate : 101 BPM Atrial Rate : 264 BPM P-R Int : 000 ms QRS Dur : 098 ms QT Int : 340 ms P-R-T Axes : -89 028 217 degrees QTc Int : 440 ms Atrial flutter with variable A-V block with premature ventricular or aberrantly conducted complexes Abnormal ECG When compared with ECG of 23-OCT-2018 07:05, Vent. rate has increased BY 34 BPM Confirmed by Maurice Charles ([id number]) on 07/26/2019 11:44:30 AM Referred By: REFERRED SELF Confirmed By:Maurice Charles
[2019-07-26] MEDS ORDERED: WARFARIN SOD 5 MG TAB PO SCH (16:00)
--- NOTE | 2019-07-26 17:43 | Discharge Summary ---
Date of Service July 26, 2019 Admission HPI Per Admitting Provider Tavon is a 49-year-old male with a past medical history of supravalvular aortic stenosis and congenital aortic stenosis with bicuspid aortic valve status post aortotomy at 10 months of age, patch augmentation aortotomy with valve commissurotomy at 11 years of age, and Bentall procedure with [facility] mechanical valve and aortic root composite graft with jag-arch replacement in 2007. 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 He also has a history of hepatitis C post Harvoni treatment, chronic kidney disease with a baseline creatinine around 22.3, and atrial arrhythmia with atrial tachycardia with RVR. He had a cardiac catheterization in 08/2018 without evidence of coronary artery disease, but which showed moderate to severe pulmonary hypertension and a normally function aortic valve prosthesis. Tavon reports that he has had progressive increase in dyspnea over the last month. In addition for the last year but much more prominently in the last few weeks he has had strong bursts of painful, prominent palpitations in his chest. He was at the grocery store today when he developed sudden onset shortness of breath, chest pain, and painful palpitations which forced him to sit down. He was not lightheaded or presyncopal, but reported he felt very weak" was not sure if eyes can be able to make it to the car ". He notes he had chest pain in the center of his chest which traveled to his back and neck which were sore and his hands were cold and clammy/diaphoretic. He sat down, and rested for several minutes, before slowly going to the car when his symptoms had improved slightly. He was able to bring his dogs home, but continued to have shortness of breath and chest pain and on the advice of his family presented to the emergency department. He is in no distress, with no chest pain but intermittent palpitations at time of visit. He denies any fever, chills, sweats. He has infected prostheses as noted above, he reports that he had positive fungal cultures a few weeks ago and is currently undergoing antifungal treatment in addition to his chronic suppressive treatment. No abdominal pain, nausea, vomiting, diarrhea, constipation. He was seen by outpatient cardiology on 07/18/2019 for increased shortness of breath and dyspnea. Evaluation at that time noted atrial flutter with controlled ventricular response, left ventricular hypertrophy with QRS widening and secondary STT changes, it was ultimately felt shortness of breath was likely factorial with underlying lung disease, his existing cardiac disease, and potential for viral illness. Medical history: See above Surgical history: See above, reviewed in EMR Medications: Reviewed in EMR. Allergies: Allergic to amphotericin, chlorhexidine, propofol, and glycerin. Sensitive to heparin. Social: Lives in [place] lives in a home by himself with no problems ambulating normally. Family is out of state. Denies current or former tobacco use. Denies alcohol use. Denies recreational drug use. CODE STATUS: Full code Principal Diagnosis chest pain and shortness of breath Discharge Exam Constitutional WD/WN, vitals as above Eyes PERRL, conjunctivae normal, anicteric sclerae ENMT Mouth: + dry oral mucous membranes Respiratory normal respiratory effort; no respiratory distress and no labored breathing Auscultation: lungs clear to auscultation bilaterally; no crackles, no rales, no rhonchi and no wheezes Cardiovascular Rate/Rhythm: regular rate and regular rhythm Heart Sounds: + click and + murmur (systolic ejection murmur over right upper sternal border) Vessels: no JVD Gastrointestinal (Abdomen) normal bowel sounds, soft, nontender, no hepatosplenomegaly Discharge Data Allergies Allergy/AdvReac Type Severity Reaction Status Date / Time amphotericin B Allergy Severe severe Verified 07/27/19 11:24 rigors, chills/fever/sweats-hypothalmus irregularity chlorhexidine Allergy Severe RASH Verified 07/27/19 11:24 edetic acid Allergy Severe Coma and Verified 07/27/19 11:24 'bowels shut down' egg Allergy Severe coma and Verified 07/27/19 11:24 "bowels shut down" glycerin Allergy Severe Coma and Verified 07/27/19 11:24 'bowels shut down' isopropyl alcohol Allergy Severe RASH Verified 07/27/19 11:24 propofol Allergy Severe Coma and Verified 07/27/19 11:24 'bowels shut down' adhesive Allergy Intermediate RASH Verified 07/27/19 11:24 heparin Allergy Intermediate Bleed out Verified 07/27/19 11:24 cat dander Allergy Mild WATERY EYES Verified 07/27/19 11:24 Consultations 07/25/19 22:10 ED Decision to Admit Stat Hospital Course (1) Chest pain: Tavon is a 49-year-old male with a past medical history of supravalvular aortic stenosis and congenital aortic stenosis with bicuspid aortic valve status post aortotomy at 10 months of age, patch augmentation aortotomy with valve commissurotomy at 11 years of age, and Bentall procedure with [facility] mechanical valve and aortic root composite graft with jag-arch replacement in 2007. 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 He also has a history of hepatitis C post Harvoni treatment, chronic kidney disease with a baseline creatinine around 22.3, and atrial arrhythmia with atrial tachycardia with RVR. He had a cardiac catheterization in 08/2018 without evidence of coronary artery disease, but which showed moderate to severe pulmonary hypertension and a normally function aortic valve prosthesis. Chest pain with shortness of breath and diaphoresis - Patient with an episode of intense palpitations, chest pain radiating to the shoulder and neck, and cold diaphoresis in his hands while at the grocery store - Has had increased shortness of breath for several weeks and some increasing episodes of palpitations - Symptoms improved without chest pain or shortness of breath at rest at time of HPI - Has a history of atrial tachycardia, history of cardiomyopathy no observed ventricular arrhythmia on initial chart review - Troponin negative over Q8h checks x3 - EKG shows A flutter with variable block, no acute ST changes - Outpatient follow up [facility] mechanical valve and aortic root composite graft - Continue warfarin 5 mg // 6 mg /// - INR 2.8 on admission Cardiomyopathy - Last echo 10/2018 showed EF 40-55%, LVD, RVD, left atrial moderate dilation, right atrial moderate dilation - Continue metoprolol 100 mg p.o. nightly - cardiology titrating diuretics as outpatient - advised to follow up on their recommendation. - per team conversation with Dr. 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 Doran you were admitted for concern of more frequent episodes of chest pain, shortness of breath and palpitations. Your cardiac work up was reassuring. We also spoke with Dr. Simental and he believes these episodes may be related to gradual worsening of your baseline cardiac conditions. Dr. Simental would like you to increase your home lasix dose (see below). Otherwise you can continue your remaining home medications. -Lasix dose changed: Take Lasix 60mg 3x/week, on remaining days take 40mg daily. -Dr. Simental will arrange for a holter monitor tomorrow after your MTU session -Follow up with Dr. Simental in 1 week -Follow up with your primary care doctor in 2-3 days Pending Studies at Discharge: No Stand-Alone Forms: [facility] C[facility] Medications and DC Order Prescriptions: Continued furosemide [Lasix] 20 mg tablet 60 mg PO QAM RF: 0 albuterol sulfate [Ventolin HFA] 90 mcg/actuation HFA aerosol inhaler 2 puff inhalation QID PRN (Reason: Shortness Of Breath Or Wheezing) RF: 0 metoprolol succinate [Toprol XL] 100 mg tablet extended release 24 hr 100 mg PO HS RF: 0 warfarin [Coumadin] 2 mg tablet 5 mg PO MOWEFR RF: 0 warfarin [Coumadin] 2 mg tablet 6 mg PO SUTUTHSA RF: 0 fluocinonide 0.05 % solution 1 applic TOPICAL BID PRN (Reason: Skin Irritation) RF: 0 mometasone [Elocon] 0.1 % cream 1 applic TOPICAL BID PRN (Reason: Dermatitis) RF: 0 posaconazole [Noxafil] 200 mg/5 mL (40 mg/mL) suspension 400 mg PO BID RF: 0 melatonin 5 mg Tablet 5 mg PO HS RF: 0 micafungin 50 mg Recon Soln 150 mg IV DAILY RF: 0 No Action budesonide 0.25 mg/2 mL Suspension For Nebulization 2 ml PRN (Reason: Shortness Of Breath) RF: 0 Discharge Orders: Discharge Order (Routine); Ordered 07/26/19 Ordered By: Walter Resendiz Admission Data Admit Date/Time: 07/26/19 00:11 Attending Provider: Joy Cordova Admit Provider: Servando Cherry Primary Care Provider: Aguila Pollard Other Providers: Janak Welsh Other Interventions: Discharge Summary Assessment (RN) Last Done: 07/26/19 17:07 DC Date/Time DO NOT enter until pt leaves facility: 07/26/19 17:51 Supervising Physician Co-Signing Physician Notes Resident Physician Supervision Note: I independently interviewed and examined the patient and verified the lawrence history and physical, reviewed labs and image studies, discussed the case with the resident Dr. Connolly and agree with the findings and care plan. Resident Activity Tracking Resident Involvement: Resident Care Provided Care Provided: Adult Hospital Medicine
[2019-07-26] MEDS ORDERED: METOPROLOL SUCC 50MG EXT REL TAB PO SCH (21:00)
[2019-07-26] MEDS ORDERED: NON-FORMULARY MEDICATION (Melatonin 5 MG) PO SCH (21:00)
== END 2019-07-26 17:51 | disposition home or self-care (01) ==
LOC: ED 20:21 → 2W 20:21 → SUATTDRO 07-26 00:11 → 2W 07-26 00:48

== ENCOUNTER 2020-01-25 18:57 | Observation (INO) ==
--- NOTE | 2020-01-25 19:15 | Emergency Department Note ---
Impression & Plan Dyspnea, Cough ED Provider Note NAME: JACKY LEONARD AGE: 49 SEX: M : 1970 ARRIVES VIA: Walk-In INFORMANT: Patient, ED PROVIDER(S): Frantz Barrera MD Chief Complaint: Shortness of breath HPI: Patient does present with shortness of breath. The patient does state that he does have chronic shortness of breath usually 1-2 episodes per day. Patient states it is been 5 or 6 times today. The patient states weather is feeding the dogs are doing simple things like doing the dishes he feels as though he has to lie down. The patient does complain of some mild weakness and fatigue. Patient denies any recent medication changes. Patient states he does feel better when he lays flat compared to sitting upright. Patient does take Coumadin for prior history of atrial fibrillation and mechanical heart valve. The patient does see Dr. Dyson again with [facility] cardiology. The patient has had a nonproductive cough but feels as though this is more related to sinus congestion. The patient denies any fevers or chills. Patient denies lower extremity swelling. The patient denies nausea or vomiting. The patient does have some chest pain which he describes as burning mild and diffuse. Patient did try an albuterol inhaler as well as a mucus tablet but without improvement in his symptoms. Patient denies any recent travel or sick contacts. Patient denies any increase in salt or fluids. ROS: See HPI for pertinent positives and negatives. A total of 10 systems were reviewed and otherwise negative. Past medical history: See below Surgical history: See below Social history: See below Physical Exam: GENERAL: Wearing a mask, thin in appearance. NAD, non-toxic. EYE EXAM: Normal conjunctiva. PERRL, no anisocoria and EOM's grossly intact w/o pain. NECK: Supple, no nuchal rigidity, no adenopathy, non-tender. No signs of meningismus. Chest: Well-healed midline sternotomy scar. LUNGS: Clear to auscultation. Normal chest wall mechanics. HEART: Irregularly irregular, mechanical click heard, no MRG. ABDOMEN: Abdomen soft, non-tender, normo-active bowel sounds, no masses, no rebound or guarding. BACK: No CVA TTP. SKIN: No rashes and no bruising. UPPER EXTREMITIES: Upper extremities are grossly normal. LOWER EXTREMITIES: Grossly normal, no edema. Negative Homans sign bilaterally. NEURO EXAM: A&O x3, cranial nerves II-XII grossly intact, normal speech, moves all 4 extremities on command w/o issue. Differential diagnoses: Reactive airway disease, pneumonia, pneumothorax, COPD, CHF, infections, cardiac ischemia, pulmonary embolism, musculoskeletal, gastrointestinal, as well as other pathologies. Course: Patient was seen and evaluated the bedside. Full history physical exam was pe rformed. EKG: Indication: Shortness of breath Atrial flutter with variable block, rate of 84, QRS, normal axis, T wave inversions inferiorly and in V6. Flutter and variable block does appear to be aligned. T wave inversions inferiorly and in V6 appear old as well. Imaging Studies: Radiology results as stated below per my review in the radiologist's interpretation: XR chest 1V portable HISTORY: Dyspnea COMPARISON: Chest 07/25/2019. FINDINGS: No pneumothorax. The heart remains enlarged. Post moderate changes and a cardiac valve prosthesis are again noted. Stable blunting of the costophrenic sulci. No definite pleural effusions. No new focal lung consolidations to suggest pneumonia. No evidence for pulmonary edema. Stable enlargement of the pulmonary arteries consistent with pulmonary arterial hypertension. IMPRESSION: 1. Stable cardiomegaly. 2. No change in the pulmonary arterial hypertension. ACT 112: Negative or not required by law. Electronically signed by: Camilo Alvarez M.D. 01/25/2020 7:47 PM Dictated: 01/25/201945 Transcribed: 01/25/201945 Cardiac monitoring: An order was placed for continuous cardiac monitoring. The monitor shows a rate of 84 with irregular rhythm. MDM: Patient was seen due to concern for shortness of breath. Blood work is obta ined. Patient has been compliant with his medications and no recent changes. Patient does have leukopenia, anemia and thrombocytopenia. This does appear to be chronic and stable. The patient's kidney function CKD stage IV at baseline. INR slightly supratherapeutic at 3.9. BNP is elevated. No priors that I can review for comparison. Troponin is undetectable. Anaplasma smear does not show any obvious evidence of Anaplasma and Lyme's are negative. Given the patient's prior complicated history and the fact that the patient has had worsening symptoms with the patient would benefit from observation treatment and cardiology consult. Patient is not in extremis currently. I did speak the on- call hospitalist and the patient was admitted to any physician group under Dr. Polanco. Past Med/Surg History Medical History Anemia Anemia due to chronic kidney disease Asthma Atrial flutter Atypical chest pain Bicuspid aortic valve HX REPLACED 2007 Cardiomyopathy Chronic kidney disease ? 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 PAZ Peripheral neuropathy Stroke Surgical History H/O aortic valve repair 1968, 1981, 2007 H/O heart surgery mechanical aortic valve and arch repair ([place]) 2007, [facility] History of anesthesia reaction SEE ALLERGIES LAST HEART CATH/WAS AWAKE DURING ENTIRE PROCEDURE LAST COLONOSCOPY-WOKE UP IN MIDDLE OF PROCEDURE History of aortic valve replacement 25 millimeter [employer] valve placed in 2007, [facility]. History of cardiac cath (TOTAL 5 OR 6) LAST ONE AUGUST 2018 History of colonoscopy History of herniorrhaphy 2010 History of tooth extraction Family History Grandmother Heart disease Uncle Heart disease Other Asthma Diabetes Emphysema, unspecified Hypertension Lung disease Denies family history of Cancer Social History Smoking Status: Never smoker packs per day: 1; Number of Years Since Quit: 6; Second Hand Exposure: Yes (PAST HX OF EXPOSURE); Hx Alcohol Use: No Hx Substance Use: No Preferred Language: Indian Communication Ability: Effective Dance Coach Required: No Beliefs That Will Affect Care: None marital status: Single Current Living Situation: Alone current occupational status: disabled current occupation: Disabled How many Children do You have: 0 Feels Safe at Home: Yes Allergies Allergies Allergy/AdvReac Type Severity Reaction Status Date / Time amphotericin B Allergy Severe severe Verified 01/25/20 21:43 rigors, chills/fever/sweats-hypothalmus irregularity chlorhexidine Allergy Severe RASH Verified 01/25/20 21:43 edetic acid Allergy Severe Coma and Verified 01/25/20 21:43 'bowels shut down' egg Allergy Severe coma and Verified 01/25/20 21:43 "bowels shut down" glycerin Allergy Severe Coma and Verified 01/25/20 21:43 'bowels shut down' isopropyl alcohol Allergy Severe RASH Verified 01/25/20 21:43 propofol Allergy Severe Coma and Verified 01/25/20 21:43 'bowels shut down' adhesive Allergy Intermediate RASH Verified 01/25/20 21:43 heparin Allergy Intermediate Bleed out Verified 01/25/20 21:43 cat dander Allergy Mild WATERY EYES Verified 01/25/20 21:43 zolpidem [From Ambien] AdvReac Intermediate Sensation Verified 01/25/20 21:43 of skin cawling and jittery Home Meds Home Medications Medication Instructions Recorded Confirmed albuterol sulfate [Ventolin HFA] 2 puff INHALATION QID PRN 10/22/18 01/25/20 furosemide [Lasix] 40 - 60 mg PO Q2D 10/22/18 01/25/20 fluocinonide 1 applic TOPICAL BID PRN 06/09/19 01/25/20 melatonin 5 mg PO HS 06/09/19 01/25/20 metoprolol succinate [Toprol XL] 100 mg PO HS 06/09/19 01/25/20 diphenhydramine HCl [ZzzQuil] 25 mg PO HS PRN 01/25/20 01/25/20 guaifenesin 600 mg PO HS 01/25/20 01/25/20 mometasone 1 applic TOPICAL BID PRN 01/25/20 01/25/20 posaconazole [Noxafil] 25 mg PO BID 01/25/20 01/25/20 warfarin 5 mg PO DAILY 01/25/20 01/25/20 Previous Rx's Medication Instructions Recorded azelastine 137 mcg (0.1 %) nasal 1 sprays INTNAS BID #30 ml 12/05/19 spray aerosol umeclidinium 62.5 mcg/actuation 1 puffs INH DAILY #30 ea 12/05/19 blister powder for inhalation Results & Data (ED) Vital Signs Vital Signs - 24 hr 01/25/20 19:00 01/25/20 19:34 01/25/20 19:36 Temperature 36.9 C Temperature Source Oral Pulse Rate 97 H Pulse Rate [Apical] Pulse Rhythm [Apical] Pulse Strength [Apical] Respiratory Rate 18 Respiratory Effort / Characteristics Non-Labored Spontaneous Respiratory Depth Normal Respiratory Pattern Blood Pressure 125/76 Blood Pressure [Left Arm] Blood Pressure Mean 92 Blood Pressure Mean [Left Arm] Blood Pressure Position [Left Arm] Pulse Oximetry 99 98 94 Oxygen Delivery Method Room Air Room Air Room Air Sepsis Recent Fever Within 48 Hours No Sepsis New/Unexplained Change in Mental Status N/A Sepsis Action Taken by Nursing No Action Required 01/25/20 20:16 01/25/20 21:24 01/25/20 22:43 Temperature 37.2 C Temperature Source Oral Pulse Rate Pulse Rate [Apical] 87 79 83 Pulse Rhythm [Apical] Regular Irregular Irregular Pulse Strength [Apical] Normal Respiratory Rate 20 20 20 Respiratory Effort / Characteristics Non-Labored Non-Labored Respiratory Depth Normal Normal Normal Respiratory Pattern Regular Regular Blood Pressure Blood Pressure [Left Arm] 117/75 118/74 125/83 Blood Pressure Mean Blood Pressure Mean [Left Arm] 89 88 97 Blood Pressure Position [Left Arm] Lying Lying Lying Pulse Oximetry 100 100 98 Oxygen Delivery Method Room Air Room Air Room Air Sepsis Recent Fever Within 48 Hours Sepsis New/Unexplained Change in Mental Status Sepsis Action Taken by Residential Medications Current Medication List: was personally reviewed by me Laboratory Data Attestation: I reviewed the patient's lab results. Result diagrams: 01/25/20 19:54 01/25/20 19:57 Lab Results 01/25/20 01/25/20 01/25/20 Range/Units 19:54 19:54 19:54 WBC 2.34 L (4.8-10.8) K/uL RBC 4.38 L (4.7-6.1) M/uL Hgb 10.4 L (14.0-18.0) g/dL Hct 33.5 L (42-52) % MCV 76.5 L (80-100) fL MCH 23.7 L (25-34) pg MCHC 31.0 L (32-36) g/dL RDW Std Deviation 45.9 (36.4-46.3) fL RDW Coeff of Tricia 16.4 H (11.5-14.5) % Plt Count 123 L (130-400) K/uL Immature Gran % (Auto) 0.0 % Neut % (Auto) 47.5 % Lymph % (Auto) 41.0 % [place] % (Auto) 8.5 % Eos % (Auto) 2.6 % Baso % (Auto) 0.4 % Neut # (Auto) 1.11 L (1.4-6.5) K/uL Lymph # (Auto) 0.96 L (1.2-3.4) K/uL [place] # (Auto) 0.20 (0.11-0.59) K/uL Eos # (Auto) 0.06 (0-0.5) K/uL Baso # (Auto) 0.01 (0-0.2) K/uL Immature Gran # (Auto) 0.00 (0.00-0.02) K/uL Giant Platelets 1+ Tear Drop Cells 1+ Ovalocytes 1+ PT 37.9 H (9.0-12.0) Seconds INR 3.9 H (0.9-1.1) APTT 36.7 H (21.0-31.0) Seconds PTT Ratio 1.3 Sodium (136-145) mmol/L Potassium (3.5-5.1) mmol/L Chloride (98-107) mmol/L Carbon Dioxide (21-32) mmol/L Anion Gap (3-11) BUN (7-18) mg/dl Creatinine (0.6-1.4) mg/dl Est Cr Clr Drug Dosing ml/min Est GFR ( Amer) Est GFR (Non-Af Amer) BUN/Creatinine Ratio (10-20) Glucose (70-99) mg/dl Calcium (8.5-10.1) mg/dl Magnesium (1.8-2.4) mg/dl Total Bilirubin (0.2-1) mg/dl AST (15-37) U/L ALT (12-78) U/L Alkaline Phosphatase (45-117) U/L CK-MB (CK-2) (0.5-3.6) ng/ml Troponin I (0-0.045) ng/ml NT-Pro-B Natriuret Pep (0-900) pg/ml Total Protein (6.4-8.2) gm/dl Albumin (3.4-5.0) gm/dl Globulin (2.5-4.0) gm/dl Albumin/Globulin Ratio (0.9-2) Urine Color Urine Appearance (Clear) Urine pH (4.5-7.5) Ur Specific [place] (1.000-1.030) Urine Protein (Negative) Urine Glucose (UA) (Negative) Urine Ketones (Negative) Urine Blood (Negative) Urine Nitrite (Negative) Urine Bilirubin (Negative) Urine Urobilinogen (Negative) Ur Leukocyte Esterase (Negative) Urine WBC (Auto) (0-5) /hpf Urine RBC (Auto) (0-4) /hpf U Hyaline Cast (Auto) (0-5) /lpf U Epithel Cells (Auto) (0-5) /lpf Urine Bacteria (Auto) (Negative) Anaplasma Smear See Comment Lyme Disease IgG Ab Negative (Negative) Lyme Disease IgM Ab Negative (Negative) 01/25/20 01/25/20 Range/Units 19:57 21:15 WBC (4.8-10.8) K/uL RBC (4.7-6.1) M/uL Hgb (14.0-18.0) g/dL Hct (42-52) % MCV (80-100) fL MCH (25-34) pg MCHC (32-36) g/dL RDW Std Deviation (36.4-46.3) fL RDW Coeff of Tricia (11.5-14.5) % Plt Count (130-400) K/uL Immature Gran % (Auto) % Neut % (Auto) % Lymph % (Auto) % [place] % (Auto) % Eos % (Auto) % Baso % (Auto) % Neut # (Auto) (1.4-6.5) K/uL Lymph # (Auto) (1.2-3.4) K/uL [place] # (Auto) (0.11-0.59) K/uL Eos # (Auto) (0-0.5) K/uL Baso # (Auto) (0-0.2) K/uL Immature Gran # (Auto) (0.00-0.02) K/uL Giant Platelets Tear Drop Cells Ovalocytes PT (9.0-12.0) Seconds INR (0.9-1.1) APTT (21.0-31.0) Seconds PTT Ratio Sodium 135 L (136-145) mmol/L Potassium 4.4 (3.5-5.1) mmol/L Chloride 104 (98-107) mmol/L Carbon Dioxide 25 (21-32) mmol/L Anion Gap 7.0 (3-11) BUN 40 H (7-18) mg/dl Creatinine 2.88 H (0.6-1.4) mg/dl Est Cr Clr Drug Dosing 24.9 ml/min Est GFR ( Amer) 28.0 Est GFR (Non-Af Amer) 24.1 BUN/Creatinine Ratio 14.0 (10-20) Glucose 87 (70-99) mg/dl Calcium 9.2 (8.5-10.1) mg/dl Magnesium 2.3 (1.8-2.4) mg/dl Total Bilirubin 0.7 (0.2-1) mg/dl AST 14 L (15-37) U/L ALT 17 (12-78) U/L Alkaline Phosphatase 102 (45-117) U/L CK-MB (CK-2) < 1.0 (0.5-3.6) ng/ml Troponin I < 0.015 (0-0.045) ng/ml NT-Pro-B Natriuret Pep 9750 H (0-900) pg/ml Total Protein 7.6 (6.4-8.2) gm/dl Albumin 3.3 L (3.4-5.0) gm/dl Globulin 4.3 H (2.5-4.0) gm/dl Albumin/Globulin Ratio 0.8 L (0.9-2) Urine Color Yellow Urine Appearance Clear (Clear) Urine pH 5.5 (4.5-7.5) Ur Specific [place] 1.015 (1.000-1.030) Urine Protein 2+ H (Negative) Urine Glucose (UA) Negative (Negative) Urine Ketones Negative (Negative) Urine Blood Trace H (Negative) Urine Nitrite Negative (Negative) Urine Bilirubin Negative (Negative) Urine Urobilinogen Negative (Negative) Ur Leukocyte Esterase Negative (Negative) Urine WBC (Auto) 1-5 (0-5) /hpf Urine RBC (Auto) 0-4 (0-4) /hpf U Hyaline Cast (Auto) 1-5 (0-5) /lpf U Epithel Cells (Auto) 0-5 (0-5) /lpf Urine Bacteria (Auto) Negative (Negative) Anaplasma Smear Lyme Disease IgG Ab (Negative) Lyme Disease IgM Ab (Negative) Discharge Plan Visit Data Chief Complaint: Shortness of Breath/Dyspnea Stated Complaint: SOB, COUGH, CONGESTION, FATIGUE ED Provider: Frantz Barrera Discharge Problem: Dyspnea, Cough Forms Stand Alone Forms: My [facility] Prescriptions Prescriptions: No Action azelastine 137 mcg (0.1 %) aerosol,spray 1 sprays INTNAS BID Qty: 30 RF: 3 Incruse Ellipta 62.5 mcg/actuation blister with device 1 puffs INH DAILY Qty: 30 RF: 3 warfarin 2 mg tablet 5 mg PO DAILY RF: 0 posaconazole [Noxafil] 200 mg/5 mL (40 mg/mL) suspension 25 mg PO BID RF: 0 mometasone 0.1 % Cream 1 applic TOPICAL BID PRN (Reason: Dermatitis) RF: 0 ZzzQuil 50 mg/30 mL Liquid 25 mg PO HS PRN (Reason: Sleep) RF: 0 guaifenesin 600 mg Tablet Extended Release 12hr 600 mg PO HS RF: 0 furosemide [Lasix] 20 mg tablet 40 - 60 mg PO Q2D RF: 0 albuterol sulfate [Ventolin HFA] 90 mcg/actuation HFA aerosol inhaler 2 puff inhalation QID PRN (Reason: Shortness Of Breath Or Wheezing) RF: 0 metoprolol succinate [Toprol XL] 100 mg tablet extended release 24 hr 100 mg PO HS RF: 0 fluocinonide 0.05 % solution 1 applic TOPICAL BID PRN (Reason: Skin Irritation) RF: 0 melatonin 5 mg Tablet 5 mg PO HS RF: 0 Discharge Problem: Dyspnea Qualifiers: Dyspnea type: shortness of breath Qualified Code(s): R06.02 - Shortness of breath
--- NOTE | 2020-01-25 19:48 | XRay Report ---
XR chest 1V portable HISTORY: Dyspnea COMPARISON: Chest 07/25/2019. FINDINGS: No pneumothorax. The heart remains enlarged. Post moderate changes and a cardiac valve pros thesis are again noted. Stable blunting of the costophrenic sulci. No definite pleural effusions. No new focal lung consolidations to suggest pneumonia. No evidence for pulmonary edema. Stable enlargeme nt of the pulmonary arteries consistent with pulmonary arterial hypertension. IMPRESSION: 1. Stable cardiomegaly. 2. No change in the pulmonary arterial hypertension. ACT 112: Negative or not required by law. Electronically signed by: Camilo Alvarez M.D. 01/25/2020 7:47 PM
[2020-01-25 20:10] LABS: Basophils # (auto) 0.01 K/uL (0-0.2); Basophils % (auto) 0.4 %; Eosinophils # (auto) 0.06 K/uL (0-0.5); Eosinophils % (auto) 2.6 %; Hematocrit (blood only) 33.5 % (42-52); Hemoglobin 10.4 g/dL (14.0-18.0); Lymphocytes # (auto) 0.96 K/uL (1.2-3.4); Mean Corpuscular Hemoglobin 23.7 pg (25-34); Mean Corpuscular Volume 76.5 fL (80-100); Monocytes % (auto) 8.5 %; Neutrophils # (auto) 1.11 K/uL (1.4-6.5); Neutrophils % (auto) 47.5 %; RDW Coefficient of Variation 16.4 % (11.5-14.5); RDW Standard Deviation 45.9 fL (36.4-46.3); Red Blood Count 4.38 M/uL (4.7-6.1); White Blood Count 2.34 K/uL (4.8-10.8)
[2020-01-25 20:26] LABS: Alanine Aminotransferase 17 U/L (12-78); Albumin Level 3.3 gm/dl (3.4-5.0); Aspartate Aminotransferase 14 U/L (15-37); Blood Urea Nitrogen 40 mg/dl (7-18); Calcium 9.2 mg/dl (8.5-10.1); Carbon Dioxide 25 mmol/L (21-32); Chloride 104 mmol/L (98-107); Creatinine Clr Calc Pharmacy 24.9 ml/min; Est GFR (Non-African American) 24.1; Glucose 87 mg/dl (70-99); Magnesium 2.3 mg/dl (1.8-2.4); Potassium 4.4 mmol/L (3.5-5.1); Sodium 135 mmol/L (136-145)
[2020-01-25 20:30] LABS: INR 3.9 (0.9-1.1); Partial Thromboplastin Ratio 1.3; Partial Thromboplastin Time 36.7 Seconds (21.0-31.0); Prothrombin Time 37.9 Seconds (9.0-12.0)
[2020-01-25 20:31] LABS: Albumin Globulin Ratio 0.8 (0.9-2); Alkaline Phosphatase 102 U/L (45-117); Bilirubin,Total 0.7 mg/dl (0.2-1); Creatine Kinase MB < 1.0 ng/ml (0.5-3.6); Globulin 4.3 gm/dl (2.5-4.0); NT Pro B Type Natriuretic Pept 9750 pg/ml (0-900); Total Protein 7.6 gm/dl (6.4-8.2); Troponin I < 0.015 ng/ml (0-0.045)
[2020-01-25 20:32] LABS: Platelet Count 123 K/uL (130-400)
[2020-01-25 20:35] LABS: Giant Platelets 1+; Ovalocytes 1+; Tear Drop Cells 1+
[2020-01-25 21:33] LABS: Appearance Urine Clear (Clear); Bacteria Urine Automated Negative (Negative); Bilirubin Urine Negative (Negative); Blood Urine Trace (Negative); Color Urine Yellow; Epithelial Cell Urine Auto 0-5 /lpf (0-5); Glucose Urine UA Negative (Negative); Ketones Urine Negative (Negative); Leukocyte Esterase Urine Negative (Negative); Nitrite Urine Negative (Negative); Protein Urine 2+ (Negative); RBC Urine Automated 0-4 /hpf (0-4); Specific Gravity Urine 1.015 (1.000-1.030); Urobilinogen Urine Negative (Negative); pH Urine 5.5 (4.5-7.5)
[2020-01-25 21:38] LABS: Lyme Ab IgG w/WB Rflx Negative (Negative); Lyme Ab IgM w/WB Rflx Negative (Negative)
--- NOTE | 2020-01-25 22:33 | History & Physical Report ---
Date of Service January 25, 2020 Assessment & Plan (1) Exertional shortness of breath: (2) COPD with emphysema: Tavon is a 49-year-old male with a past medical history of supravalvular aortic stenosis and congenital aortic stenosis with bicuspid aortic valve status post aortotomy at 10 months of age, patch augmentation aortotomy with valve commissurotomy at 11 years of age, and Bentall procedure with Saint Harley mechanical valve and aortic root composite graft with jag-arch replacement in 2007. 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 He also has a history of hepatitis C post Harvoni treatment, chronic kidney disease with a baseline creatinine around 2.5, and atrial arrhythmia with atrial tachycardia with RVR. He had a cardiac catheterization in 08/2018 without evidence of coronary artery disease, but which showed moderate to severe pulmonary hypertension and a normally function aortic valve prosthesis. Increased Shortness of breath WITHOUT chest pain or diaphoresis - PFTs 10/2019 : FVC 2.64 L, 67% predicted, FEV1 1.91 L, 58% predicted, FEV1/FVC ratio 72% (LLN 74%), TLC 66% predicted, DLCO 38% predicted. Moderate obstruction with mild restrictive pattern, severe decrease in DLCO. Patient without wheezing on exam, moderate decrease in air movement. Recently started on triple inhaler by Pulmonary Suspicion for type I pulmonary hypertension and existing to his other underlying lung disease potentially pending V/Q study/Right cath -Pulmonary consulted No fevers, chills, increasing sputum or respiratory symptoms Chronic anemia as discussed below. LISANDRA as below, BUN/creatinine ratio normal - EKG naf - trop negative - Negative covid, flu Saint Harley mechanical valve and aortic root composite graft Continue warfarin, hold one dose for supratherapeutic as below - INR daily INR 3.9 on admission Persistent bleeding hemorrhoids Patient "super have which bleed daily Known to GI and Dr. Laura, pending surgical intervention but [place] [facility] [place]ary care's medical complexity Patient with chronic anemia baseline hemoglobin approximately 1213, currently 10.4 Other than right red blood on toilet, no other signs of acute bleeding LISANDRA on CKD Patient with baseline creatinine approximately 2.5 Creatinine on admission 2.88, GFR approximately 24 - Volume overload not appreciated on exam -Hold Lasix, oral fluid hydration at this time Cardiomyopathy Last echo 10/2018 showed EF 40-55%, LVD, RVD, left atrial moderate dilation, right atrial moderate dilation Continue metoprolol 100 mg p.o. 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 and splenomegaly CBC daily Diet: Heart healthy DVT prophylaxis: On warfarin CODE STATUS: Full code (3) Chronic cough: (4) Pulmonary nodule: (5) Acute dyspnea: (6) COPD (chronic obstructive pulmonary disease): (7) Mixed obstructive and restrictive ventilatory defect: (8) Chronic kidney disease, stage 4 (severe): (9) Anemia due to chronic kidney disease: (10) Heart disease: (11) Internal and external bleeding hemorrhoids: (12) Kidney failure: (13) Hypertension: History of Present Illness Chief Complaint: Shortness of Breath Primary Care Provider: Aguila Pollard MD Tavon is a 49-year-old male with a past medical history of supravalvular aortic stenosis and congenital aortic stenosis with bicuspid aortic valve status post aortotomy at 10 months of age, patch augmentation aortotomy with valve commissurotomy at 11 years of age, and Bentall procedure with Saint Harley mechanical valve and aortic root composite graft with jag-arch replacement in 2007. 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 He also has a history of hepatitis C post Harvoni treatment, chronic kidney disease with a baseline creatinine around 2.5, and atrial arrhythmia with atrial tachycardia with RVR. He had a cardiac catheterization in 08/2018 without evidence of coronary artery disease, but which showed moderate to severe pulmonary hypertension and a normally function aortic valve prosthesis. He normallly had 2-3 shortness of breath episodes per da. Today he had 5-6 episodes of shortness of breath and had to lie down for 5+ minutes for his breathing and heart to become normal. He was lying for an average of a half hour before he felt back to normal. His episodes were associated with exertion (doing dishes, bringing in groceries, walking the dog). Usually after he takes a shower he had to sit down for 10-15 minutes he has to sit down and rest, but his current level of fatigue is very concerning fo rhim. If he talks he also gets easily winded. He wears a pulse ox at home and notes he has NOT been hypoxic, oxygen levels ahve been satying above 95%. He feels likes between the episodes he returns to relatively normal.He has also had some 'burning' in his chest 'like when you run a long distance.' Which has been coming and going, but which is not present at time of HPI. the burnign is bilateral and goes in the back of the neck and head. No fluid accumulation. No syncope/presyncope. His blood pressure cuff was difficult to read due to shaking/tremor today. He has not had any fevers, chills, or sweats. No recent sick contacts. He feels his cough is 'a little more prominent' than normal, bu otherwise unchanged. Brings up some clear/orange-yellow sputum which is normal for him. Denies abdominal pain, nausea, and vomiting. No constipation, has had some loose stools depending on his diet. He has 'super hemorrhoids' which bleed bright red with ever bowel movement. He is pending surgery for hemorrhoids in the future, but will require intervention at [facility] due to his medical complexity. Is being followed Dr. Laura. Denies melena. Last took medicines this morning. Is due for evening meds. his blood culures were positive a few weeks ago for fungemia, negative for 5 weeks prior to that and 1 negative this past week. Tobacco: Former smoker, quit 7 ears ago. EtoH: Quit alchol over one year ago. Recreational Drug: Denies Social: Lives at home, single, lives alone. Taxing with walking, bu totherwise gets around OK. Code Status: Full Code Allergies Allergy/AdvReac Type Severity Reaction Status Date / Time amphotericin B Allergy Severe severe Verified 01/25/20 21:43 rigors, chills/fever/sweats-hypothalmus irregularity chlorhexidine Allergy Severe RASH Verified 01/25/20 21:43 edetic acid Allergy Severe Coma and Verified 01/25/20 21:43 'bowels shut down' egg Allergy Severe coma and Verified 01/25/20 21:43 "bowels shut down" glycerin Allergy Severe Coma and Verified 01/25/20 21:43 'bowels shut down' isopropyl alcohol Allergy Severe RASH Verified 01/25/20 21:43 propofol Allergy Severe Coma and Verified 01/25/20 21:43 'bowels shut down' adhesive Allergy Intermediate RASH Verified 01/25/20 21:43 heparin Allergy Intermediate Bleed out Verified 01/25/20 21:43 cat dander Allergy Mild WATERY EYES Verified 01/25/20 21:43 zolpidem [From Ambien] AdvReac Intermediate Sensation Verified 01/25/20 21:43 of skin cawling and jittery Home Medications Home Medications Medication Instructions Recorded Confirmed Type albuterol sulfate [Ventolin HFA] 2 puff INHALATION QID PRN 10/22/18 01/25/20 History furosemide [Lasix] 40 - 60 mg PO Q2D 10/22/18 01/25/20 History fluocinonide 1 applic TOPICAL BID PRN 06/09/19 01/25/20 History melatonin 5 mg PO HS 06/09/19 01/25/20 History metoprolol succinate [Toprol XL] 100 mg PO HS 06/09/19 01/25/20 History azelastine 137 mcg (0.1 %) nasal 1 sprays INTNAS BID #30 ml 12/05/19 01/25/20 Rx spray aerosol umeclidinium 62.5 mcg/actuation 1 puffs INH DAILY #30 ea 12/05/19 01/25/20 Rx blister powder for inhalation ZzzQuil 25 mg PO HS PRN 01/25/20 01/25/20 History guaifenesin 600 mg PO HS 01/25/20 01/25/20 History mometasone 1 applic TOPICAL BID PRN 01/25/20 01/25/20 History posaconazole [Noxafil] 25 mg PO BID 01/25/20 01/25/20 History warfarin 5 mg PO DAILY 01/25/20 01/25/20 History Past Med/Surg History Medical History Anemia Anemia due to chronic kidney disease Asthma Atrial flutter Atypical chest pain Bicuspid aortic valve HX REPLACED 2007 Cardiomyopathy Chronic kidney disease ? 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 PAZ Peripheral neuropathy Stroke Surgical History H/O aortic valve repair 1968, 1981, 2007 H/O heart surgery mechanical aortic valve and arch repair (Bentall) 2007, [facility] History of anesthesia reaction SEE ALLERGIES LAST HEART CATH/WAS AWAKE DURING ENTIRE PROCEDURE LAST COLONOSCOPY-WOKE UP IN MIDDLE OF PROCEDURE History of aortic valve replacement 25 millimeter CarboMedics valve placed in 2007, [facility]. History of cardiac cath (TOTAL 5 OR 6) LAST ONE AUGUST 2018 History of colonoscopy History of herniorrhaphy 2010 History of tooth extraction Family History Grandmother Heart disease Uncle Heart disease Other Asthma Diabetes Emphysema, unspecified Hypertension Lung disease Denies family history of Cancer Social History Smoking Status: Former smoker packs per day: 1; Number of Years Since Quit: 6; Second Hand Exposure: No; Hx Alcohol Use: No Hx Substance Use: No Preferred Language: Romanian Communication Ability: Effective Obstetrician/Gynecologist Required: No Beliefs That Will Affect Care: None marital status: Single Current Living Situation: Alone current occupational status: disabled current occupation: Disabled How many Children do You have: 0 Feels Safe at Home: Yes Review of Systems Review of Systems: All systems reviewed & are unremarkable except as noted in HPI & below Physical Exam Physical Exam: General: A&Ox3. NAD. Cooperative. Appears thin. HEENT: Atraumatic, normocephalic. Pupils equal reactive to light and accommodation. Vision grossly intact. Mucous membranes moist. No oral jody are appreciated. Pulm: CTAB A&P. -wheezes, -rales, -rhonchi. Symmetrical chest rise. No increase work of breathing. No respiratory distress. Cardiac: irregularly irregular, mechanical systolic murmer and click appreciated. Radial pulses intact and symmetrical. Abdominal: Nontender, nondistended, soft. BS present. Results & Data Results & Data ([facility]) Vital Signs (Past 12 Hours) Vital Signs Temp Pulse Pulse Resp BP BP Pulse Ox 01/25/20 21:24 79 20 118/74 100 01/25/20 20:16 87 20 117/75 100 01/25/20 19:36 94 01/25/20 19:34 98 01/25/20 19:00 36.9 C 97 H 18 125/76 99 Supervising Physician Co-Signing Physician Notes Attending addendum: I have physically seen this patient, have supervised the medical residents activities, and agree with the H&P unless as otherwise noted. Assessment and Plan: Shortness of breath- Has had significant work-up in the outpatient setting, seen by both pulmonology and cardiology. We will consult both specialties. Saint Harley mechanical valve/atrial fibrillation/cardiomyopathy/systolic heart dysfunction- The patient will be admitted to telemetry for serial cardiac enzymes, serial EKG's, cardiac rhythm monitoring. Continue warfarin, and metoprolol succinate. Hold furosemide due to relative hypovolemic state, and hydrate with IV fluids Fungemia/infection of aortic graft- Continue posaconazole 40 mg p.o. twice daily LISANDRA on CKD- Creatinine 2.88 upon admission, with baseline creatinine around 2.5. Follow serially Remaining orders and notations as noted Resident Activity Tracking Resident Involvement: Resident Care Provided Care Provided: Adult Hospital Medicine
[2020-01-26] MEDS ORDERED: ALBUTEROL HFA 8 GM INHALER INH PRN (00:44)
[2020-01-26] MEDS ORDERED: MOMETASONE FUROATE 0.1% CR 15 GM TUBE EXT PRN (00:44)
[2020-01-26] MEDS ORDERED: NON-FORMULARY MEDICATION (Fluocinonide 1 APPLN) TOP PRN (00:44)
[2020-01-26] MEDS ORDERED: METOPROLOL SUCC 50MG EXT REL TAB PO STA (02:50)
[2020-01-26] MEDS ORDERED: FLUCONAZOLE 100 MG TAB PO SCH (03:15)
[2020-01-26 07:42] LABS: INR 3.5 (0.9-1.1); Prothrombin Time 34.2 Seconds (9.0-12.0)
[2020-01-26] MEDS ORDERED: UMECLIDINIUM BROMIDE 62.5MCG/BLISTER 7 PUFFS/INHALER INH SCH (09:00)
[2020-01-26 15:53] VITALS: TEMP 98.4; O2SAT 93
--- NOTE | 2020-01-26 16:29 | Pulmonary Consultation ---
Date of Consultation January 26, 2020 Assessment & Plan (1) Dyspnea: Chest x-ray 01/25/2020: Good inspiratory effort, right costophrenic angle is blunted, bilateral cardiophrenic angles are clean, no clear infiltrate appreciated, no vascular congestion, increased cardiac silhouette. Enlarged h ilar vasculature. --Exertional shortness of breath Multifactorial, chronic systolic CHF, pulmonary hypertension secondary to type II-type III as well as COPD Patient's COVID-19 PCR was negative Chest x-ray did not show any infiltrate. Patient has chronic systolic CHF but he does not seem to be in decompensation He does have COPD/emphysema and is on inhalers at home. Currently is not wheezing. He does have history of anxiety and I think that might be playing a role at this time. The best thing the patient could have is cardiopulmonary rehab. I had long discussion with his cosmetics supervisor Dr Simental, patient had a right-sided cardiac cath done back in early 2018 which showed elevated right-sided pressure as well as pulmonary capillary wedge pressure. The pulmonary hypertension that the patient has is a combination of type II and type III. --COPD Not in exacerbation Patient has greater than [id number] smoking history quit approximately in 2013 Continue with Incruse --Cough chronic Symptomatic therapy Plan: Given the patient is dry I would not stop his home Lasix as he can decompensate very quickly. Continue with the meclodium bromide on a daily basis. Anxiolytic medication might be beneficial. A trial of Lexapro could be thought of. I do not think patient has any infectious process going on. Please note the above document was generated using voice recognition software. It may contain grammatical, syntax or spelling errors. Dyspnea type: shortness of breath Qualified Code(s): R06.02 - Shortness of breath (2) Pulmonary hypertension: History of Present Illness Attending Physician: Corby Christianson DO History of Present Illness 49-year-old male with past medical history of cardiomyopathy ejection fraction 40% as per echo done October 2018, status post aortic valve replacement mechanical on warfarin in 2007, a-flutter, history of fungemia on chronic fluconazole. Patient is known to me as he follows up with me in the clinic for his underlying COPD, exertional dyspnea as well as chronic cough Patient states that he usually is short of breath on a daily basis but yesterday was a bit worse as the reason he came to the ED. It was not associated wheezing. No chest pain. Patient denies any fever or chills. Patient has this cough but this is chronic he I have been following up with this cough for a very long time. No recent travel history. Denies any fever or chills. No dysuria, no diarrhea. Denies any dizziness, no headache, no nausea or vomiting. Patient does state that he has been more stressful in the recent days. Is that playing a role in his shortness of breath he thinks and there is a possibility. Good appetite. Allergies Allergy/AdvReac Type Severity Reaction Status Date / Time amphotericin B Allergy Severe severe Verified 01/25/20 21:43 rigors, chills/fever/sweats-hypothalmus irregularity chlorhexidine Allergy Severe RASH Verified 01/25/20 21:43 edetic acid Allergy Severe Coma and Verified 01/25/20 21:43 'bowels shut down' egg Allergy Severe coma and Verified 01/25/20 21:43 "bowels shut down" glycerin Allergy Severe Coma and Verified 01/25/20 21:43 'bowels shut down' isopropyl alcohol Allergy Severe RASH Verified 01/25/20 21:43 propofol Allergy Severe Coma and Verified 01/25/20 21:43 'bowels shut down' adhesive Allergy Intermediate RASH Verified 01/25/20 21:43 heparin Allergy Intermediate Bleed out Verified 01/25/20 21:43 cat dander Allergy Mild WATERY EYES Verified 01/25/20 21:43 zolpidem [From Ambien] AdvReac Intermediate Sensation Verified 01/25/20 21:43 of skin cawling and jittery Home Medications Home Medications Medication Instructions Recorded Confirmed Type albuterol sulfate [Ventolin HFA] 2 puff INHALATION QID PRN 10/22/18 01/25/20 History furosemide [Lasix] 40 - 60 mg PO Q2D 10/22/18 01/25/20 History fluocinonide 1 applic TOPICAL BID PRN 06/09/19 01/25/20 History melatonin 5 mg PO HS 06/09/19 01/25/20 History metoprolol succinate [Toprol XL] 100 mg PO HS 06/09/19 01/25/20 History azelastine 137 mcg (0.1 %) nasal 1 sprays INTNAS BID #30 ml 12/05/19 01/25/20 Rx spray aerosol umeclidinium 62.5 mcg/actuation 1 puffs INH DAILY #30 ea 12/05/19 01/25/20 Rx blister powder for inhalation ZzzQuil 25 mg PO HS PRN 01/25/20 01/25/20 History guaifenesin 600 mg PO HS 01/25/20 01/25/20 History mometasone 1 applic TOPICAL BID PRN 01/25/20 01/25/20 History posaconazole [Noxafil] 25 mg PO BID 01/25/20 01/25/20 History warfarin 5 mg PO DAILY 01/25/20 01/25/20 History Patient History Medical History Anemia Anemia due to chronic kidney disease Asthma Atrial flutter Atypical chest pain Bicuspid aortic valve HX REPLACED 2007 Cardiomyopathy Chronic kidney disease ? 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 SIMENTAL Peripheral neuropathy Stroke Surgical History H/O aortic valve repair 1968, 1981, 2007 H/O heart surgery mechanical aortic valve and arch repair (Bentall) 2007, [facility] History of anesthesia reaction SEE ALLERGIES LAST HEART CATH/WAS AWAKE DURING ENTIRE PROCEDURE LAST COLONOSCOPY-WOKE UP IN MIDDLE OF PROCEDURE History of aortic valve replacement 25 millimeter CarboMedics valve placed in 2007, [facility]. History of cardiac cath (TOTAL 5 OR 6) LAST ONE AUGUST 2018 History of colonoscopy History of herniorrhaphy 2010 History of tooth extraction Family History Grandmother Heart disease Uncle Heart disease Other Asthma Diabetes Emphysema, unspecified Hypertension Lung disease Denies family history of Cancer Social History Smoking Status: Former smoker packs per day: 1; Smoking End Date: 7 years ago; Number of Years Since Quit: 6; Second Hand Exposure: No; Hx Alcohol Use: No Hx Substance Use: No Preferred Language: Sri Lankan Communication Ability: Effective Dixonac Operator Required: No Beliefs That Will Affect Care: None marital status: Single Current Living Situation: Alone current occupational status: disabled current occupation: Disabled How many Children do You have: 0 Other Information That Helps Us Care for You: No Feels Safe at Home: Yes Review of Systems Review of Systems: All systems reviewed & are unremarkable except as noted in HPI & below Physical Exam Physical Exam: Constitutional: No acute distress HEENT: EOMI, PERRLA Respiratory system: Good air entry bilaterally, no wheeze, no rhonchi, no crackles CVS: S1-S2 positive, no gallops, positive 2 out of 6 systolic ejection murmur appreciated at aorta, mechanical heart sound is appreciated best at the apex Abdomen: Soft, nontender, nondistended, positive bowel sounds x4 Extremities: +2 pulses bilaterally radialis/ dorsalis pedis, no cyanosis, no edema, no clubbing Neuro: Awake alert oriented x3 Psych: Normal mood and affect G/U: No [place]ino Skin: no rashes, warm and dry Lymphatic: no cervical or axillary lymphadenopathy Results & Data Results & Data ([facility]) Vital Signs (Past 12 Hours) Vital Signs Temp Pulse Resp BP Pulse Ox 01/26/20 15:31 36.9 C 52 L 18 117/77 93 01/26/20 11:52 37.1 C 86 18 143/92 H 99 01/26/20 07:56 37.2 C 70 16 109/74 98 01/25/20 19:54 01/25/20 19:57 PG Care Time/CCT Total # of Minutes Spent Total Time Spent with Patient: Total time spent is greater than 50% in coordination of care (as documented) at patient's floor/unit and/or counseling patient: Coding Level of Care Code 03098 Initial Inpt Care Lvl 3 Diagnoses Dyspnea R06.02 Dyspnea type: shortness of breath Pulmonary hypertension I27.20
--- NOTE | 2020-01-26 17:40 | Discharge Summary ---
Date of Service January 26, 2020 Admission HPI Per Admitting Provider Tavon is a 49-year-old male with a past medical history of supravalvular aortic stenosis and congenital aortic stenosis with bicuspid aortic valve status post aortotomy at 10 months of age, patch augmentation aortotomy with valve commissurotomy at 11 years of age, and Bentall procedure with [place] mechanical valve and aortic root composite graft with jag-arch replacement in 2007. 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 He also has a history of hepatitis C post Harvoni treatment, chronic kidney disease with a baseline creatinine around 2.5, and atrial arrhythmia with atrial tachycardia with RVR. He had a cardiac catheterization in 08/2018 without evidence of coronary artery disease, but which showed moderate to severe pulmonary hypertension and a normally function aortic valve prosthesis. He normallly had 2-3 shortness of breath episodes per da. Today he had 5-6 episodes of shortness of breath and had to lie down for 5+ minutes for his breathing and heart to become normal. He was lying for an average of a half hour before he felt back to normal. His episodes were associated with exertion (doing dishes, bringing in groceries, walking the dog). Usually after he takes a shower he had to sit down for 10-15 minutes he has to sit down and rest, but his current level of fatigue is very concerning fo rhim. If he talks he also gets easily winded. He wears a pulse ox at home and notes he has NOT been hypoxic, oxygen levels ahve been satying above 95%. He feels likes between the episodes he returns to relatively normal.He has also had some 'burning' in his chest 'like when you run a long distance.' Which has been coming and going, but which is not present at time of HPI. the burnign is bilateral and goes in the back of the neck and head. No fluid accumulation. No syncope/presyncope. His blood pressure cuff was difficult to read due to shaking/tremor today. He has not had any fevers, chills, or sweats. No recent sick contacts. He feels his cough is 'a little more prominent' than normal, bu otherwise unchanged. Brings up some clear/orange-yellow sputum which is normal for him. Denies abdominal pain, nausea, and vomiting. No constipation, has had some loose stools depending on his diet. He has 'super hemorrhoids' which bleed bright red with ever bowel movement. He is pending surgery for hemorrhoids in the future, but will require intervention at [facility] due to his medical complexity. Is being followed Dr. Laura. Denies melena. Last took medicines this morning. Is due for evening meds. his blood culures were positive a few weeks ago for fungemia, negative for 5 weeks prior to that and 1 negative this past week. Tobacco: Former smoker, quit 7 ears ago. EtoH: Quit alchol over one year ago. Recreational Drug: Denies Social: Lives at home, single, lives alone. Taxing with walking, bu totherwise gets around OK. Code Status: Full Code Admission Exam Per Admitting Provider Physical Exam: General: A&Ox3. NAD. Cooperative. Appears thin. HEENT: Atraumatic, normocephalic. Pupils equal reactive to light and accommodation. Vision grossly intact. Mucous membranes moist. No oral jody are appreciated. Pulm: CTAB A&P. -wheezes, -rales, -rhonchi. Symmetrical chest rise. No increase work of breathing. No respiratory distress. Cardiac: irregularly irregular, mechanical systolic murmer and click appreciated. Radial pulses intact and symmetrical. Abdominal: Nontender, nondistended, soft. BS present Principal Diagnosis Chronic Pulmonary Hypertension Chronic Cardiomyopathy Exertional Dyspnea Discharge Exam Constitutional + thin and + frail appearing Eyes PERRL, conjunctivae normal, anicteric sclerae Neck normal visual inspection Respiratory normal respiratory effort; no respiratory distress and no labored breathing scattered faint rhonchi bilaterally Cardiovascular RRR, no murmur, no edema Gastrointestinal (Abdomen) normal bowel sounds, soft, nontender, no hepatosplenomegaly Musculoskeletal no cyanosis or clubbing, extremities motor strength 5/5 Skin no rashes, warm and dry Psychiatric A+Ox3, euthymic affect Lymphatic no cervical lymphadenopathy Discharge Data Allergies Allergy/AdvReac Type Severity Reaction Status Date / Time amphotericin B Allergy Severe severe Verified 01/25/20 21:43 rigors, chills/fever/sweats-hypothalmus irregularity chlorhexidine Allergy Severe RASH Verified 01/25/20 21:43 edetic acid Allergy Severe Coma and Verified 01/25/20 21:43 'bowels shut down' egg Allergy Severe coma and Verified 01/25/20 21:43 "bowels shut down" glycerin Allergy Severe Coma and Verified 01/25/20 21:43 'bowels shut down' isopropyl alcohol Allergy Severe RASH Verified 01/25/20 21:43 propofol Allergy Severe Coma and Verified 01/25/20 21:43 'bowels shut down' adhesive Allergy Intermediate RASH Verified 01/25/20 21:43 heparin Allergy Intermediate Bleed out Verified 01/25/20 21:43 cat dander Allergy Mild WATERY EYES Verified 01/25/20 21:43 zolpidem [From Ambien] AdvReac Intermediate Sensation Verified 01/25/20 21:43 of skin cawling and jittery Consultations 01/25/20 21:36 ED Decision to Admit Stat 01/26/20 00:44 Consult Case Management - Discharge Planning Routine Consult Pulmonology Routine Hospital Course (1) Pulmonary hypertension: Mr. Doran is a 49 yo male with complex history of pulmonary hypertension, cardiomyopathy, mechanical aortic valve placement with subsequent chronic Candidal infection of value, chronic fungemia, h/o Hepatitis C, and CKD who was admitted to [facility] on 01/25/2020 for worsening shortness of breath with associated chest-burning and fatigue during physical activity. He did not show signs of AMI on history, physical exam or EKG, he you did not show symptoms of heart failure on history, physical exam or CXR. His chest x-ray did not show signs of worsening pulmonary hypertension. Pulmonology was consulted and determined that his exertional dyspnea, lack of signs of fluid overload on exam and unremarkable CXR supported diagnosis of stable pulmonary hypertension and cardiomyopathy. His elevated Creatinine of 2.88 was determined to be his baseline based on previous kidney function labs in the last several years. Patient remained stable without worsening shortness of breath, chest pain, fevers, or signs of infection or heart failure. He was discharged on 01/25 in stable condition. He will follow up with his Fermentation Manager for pulmonary hypertension, Hospital Pharmacy Director (Dr. Simental) for cardiomyopathy, GI doctor for your hemorrhoids, and PCP. (2) Cardiomyopathy: (3) Exertional shortness of breath: (4) Chronic kidney disease, stage 4 (severe): Total Time Total Time Spent Total Time Spent (In Minutes): 30 minutes. Total Time Includes: Examination of the Patient, Discharge Planning and Medication Reconciliation Discharge Plan Discharge Items Patient Disposition: Home - Self-Care Reason For Visit: SOB Discharge Diagnosis: Chronic Pulmonary Hypertension Chronic Cardiomyopathy Condition on Discharge: Fair Activity: Per Instructions section Non-emergency contact: Primary Care Provider, Hospital Pharmacy Director and Fermentation Manager Call non-emergency contact if: you have any medication questions, your symptoms worsen and you have a fever Follow-up/Referrals: Aguila Pollard MD [Primary Care Provider] - Diet: Regular Addtl Attending Provider Instructions: You were admitted to [facility] on 01/25/2020 for worsening shortness of breath with associated chest-burning and fatigue during physical activity. You did not show signs of a heart attack on history, physical exam or EKG, and you did not show symptoms of heart failure on history, physical exam or EKG either. Your chest x-ray did not show signs of worsening pulmonary hypertension. Dr. Ramirez, your tool worker, came to see you and determined that your physical exam findings and x-ray results showed signs of stable pulmonary hypertension. You remained stable without worsening shortness of breath, chest pain, fevers, or signs of infection or heart failure. You were discharged on 01/25 in stable condition. You should be cautious in your return to full physical activity, as you have chronic worsening shortness of breath with exertion. You should follow up with your Fermentation Manager for your pulmonary hypertension, your Hospital Pharmacy Director (Dr. Simental) for your cardiomyopathy, your GI doctor for your hemorrhoids, and your PCP. Pending Studies at Discharge: No Stand-Alone Forms: My [facility], Smoking Cessation Medications and DC Order Prescriptions: Continued azelastine 137 mcg (0.1 %) aerosol,spray 1 sprays INTNAS BID Qty: 30 RF: 3 Incruse Ellipta 62.5 mcg/actuation blister with device 1 puffs INH DAILY Qty: 30 RF: 3 warfarin 2 mg tablet 5 mg PO DAILY RF: 0 posaconazole [Noxafil] 200 mg/5 mL (40 mg/mL) suspension 25 mg PO BID RF: 0 mometasone 0.1 % Cream 1 applic TOPICAL BID PRN (Reason: Dermatitis) RF: 0 ZzzQuil 50 mg/30 mL Liquid 25 mg PO HS PRN (Reason: Sleep) RF: 0 guaifenesin 600 mg Tablet Extended Release 12hr 600 mg PO HS RF: 0 furosemide [Lasix] 20 mg tablet 40 - 60 mg PO Q2D RF: 0 albuterol sulfate [Ventolin HFA] 90 mcg/actuation HFA aerosol inhaler 2 puff inhalation QID PRN (Reason: Shortness Of Breath Or Wheezing) RF: 0 metoprolol succinate [Toprol XL] 100 mg tablet extended release 24 hr 100 mg PO HS RF: 0 fluocinonide 0.05 % solution 1 applic TOPICAL BID PRN (Reason: Skin Irritation) RF: 0 melatonin 5 mg Tablet 5 mg PO HS RF: 0 Discharge Orders: Discharge Order (Routine); Ordered 01/26/20 Ordered By: [place] Admission Data Admit Date/Time: 01/25/20 23:08 Attending Provider: Corby Christianson Admit Provider: Servando Cherry Primary Care Provider: Aguila Pollard Other Providers: Chauncey Arita Muqueet Other Interventions: Discharge Summary Assessment (RN) Last Done: 01/26/20 17:39 Supervising Physician Co-Signing Physician Notes I also saw the patient with the resident physician and confirmed lawrence portions of the history and physical examination. Upon examination this afternoon, the patient feels at his baseline and wishes discharge. In reviewing what brought him into the hospital, there was a slight increase in episodes of his chronic dyspnea. He states that he will usually get 2-3 episodes per day; on the day of his presentation, he had about 5 episodes. At present, he has no complaints of dyspnea; he does have a dry cough when speaking but this is chronic. His BNP is elevated although clinically he appears euvolemic to slightly dry. I suspect the BNP elevation is chronic secondary to his above noted cardiopulmonary history. Pulmonology input appreciated. Incruse Ellipta added. Discussion regarding addition of anxiolytic/SSRI-we will defer to his primary care physician for further discussion. Resident Activity Tracking Resident Involvement: Resident Care Provided Care Provided: Adult Hospital Medicine
[2020-01-26 17:41] VITALS: BP 125/83; PULSE 83
[2020-01-26] MEDS ORDERED: GUAIFENESIN/DEXTROM SYRUP 100MG/10MG 5ML UDC PO PRN (18:17)
[2020-01-26] MEDS ORDERED: MELATONIN 3 MG TAB PO SCH (21:00)
[2020-01-26] MEDS ORDERED: guaiFENesin 600 MG TABCR PO SCH (21:00)
[2020-01-26] MEDS ORDERED: METOPROLOL SUCC 50MG EXT REL TAB PO SCH (21:00)
--- NOTE | 2020-01-26 22:35 | Electrocardiogram Report ---
Test Reason : Blood Pressure : / mmHG Vent. Rate : 084 BPM Atrial Rate : 256 BPM P-R Int : 000 ms QRS Dur : 106 ms QT Int : 366 ms P-R-T Axes : -74 018 180 degrees QTc Int : 432 ms Poor data quality, interpretation may be adversely affected Atrial flutter with variable A-V block Anterior infarct (cited on or before 25-JAN-2020) Abnormal ECG When compared with ECG of 25-JAN-2020 19:15, No significant change was found Confirmed by Guanaco Armstrong ([id number]) on 01/26/2020 10:34:48 PM Referred By: REFERRED SELF Confirmed By:Guanaco Armstrong
--- NOTE | 2020-01-27 03:32 | Billing Data ---
Date of Service January 27, 2020 Coding Level of Care Code 60652 Initial Inpt Care Lvl 3
[2020-01-27] MEDS ORDERED: WARFARIN SOD 5 MG TAB PO SCH (16:00)
== END 2020-01-26 18:33 | disposition home or self-care (01) ==
LOC: 2N 18:57 → ED 18:57 → SUATTDRO 23:08 → 2N 01-26

== ENCOUNTER 2020-03-08 13:34 | Observation (INO) ==
[2020-03-08] MEDS ORDERED: SODIUM CHLORIDE 0.9% 1000ML 1,000 ML IV ONE (14:07)
--- NOTE | 2020-03-08 14:14 | Emergency Department Note ---
History of Present Illness General Chief complaint: Rectal Bleed Stated complaint: DR BIANCA PADILLA RECTAL BLEEDING Time Seen by Provider: 03/08/20 13:46 History of Present Illness 49-year-old male who presents to the emergency department with complaint of rectal bleeding, weakness and mild confusion. The patient reports history of internal hemorrhoids and polyps. His last colonoscopy was December [address] Laura. The patient has seen Dr. Jaquez, colorectal surgeon at [facility] who has discussed hemorrhoidectomy. The patient reports that he has not been scheduled for this procedure. The patient is also currently on Coumadin with history of a mechanical aortic valve replacement approximately 12 years ago. The patient denies any significant abdominal pain, chest pain, shortness of breath, nausea, fever or chills. The patient reports that his hemoglobin levels have trended downward over the past several months. He had blood work performed this past Wednesday with a hemoglobin of 8.4. The patient reports that he does receive IV iron, and had a treatment this past Wednesday. The patient onl y complains of "typical anemia symptoms". Home Medications Home Medications Medication Instructions Recorded Confirmed Type furosemide [Lasix] 40 - 60 mg PO Q2D 10/22/18 03/08/20 History fluocinonide 1 applic TOPICAL BID PRN 06/09/19 03/08/20 History metoprolol succinate [Toprol XL] 100 mg PO HS 06/09/19 03/08/20 History umeclidinium 62.5 mcg/actuation 1 puffs INH DAILY #30 ea 12/05/19 03/08/20 Rx blister powder for inhalation ZzzQuil 25 mg PO HS PRN 01/25/20 03/08/20 History guaifenesin 600 mg PO HS 01/25/20 03/08/20 History mometasone 1 applic TOPICAL BID PRN 01/25/20 03/08/20 History posaconazole [Noxafil] 25 mg PO BID 01/25/20 03/08/20 History warfarin 5 mg PO DAILY 01/25/20 03/08/20 History albuterol sulfate 90 mcg/actuation 2 puff INHALATION QID PRN #18 g 03/06/20 03/08/20 Rx aerosol inhaler azelastine 137 mcg (0.1 %) nasal 1 spray INTNAS BID #30 ml 03/06/20 03/08/20 Rx spray aerosol calcitriol 0.25 mcg capsule 0.25 mcg PO UD #45 cap 03/06/20 03/08/20 Rx melatonin 3 mg tablet 3 mg PO HS 03/06/20 03/08/20 History sildenafil (pulm.hypertension) 20 10 mg PO TID tab 03/06/20 03/08/20 History mg tablet venlafaxine 25 mg tablet 12.5 mg PO BID tab 03/06/20 03/08/20 History Allergies Allergy/AdvReac Type Severity Reaction Status Date / Time amphotericin B Allergy Severe severe Verified 03/08/20 14:34 rigors, chills/fever/sweats-hypothalmus irregularity chlorhexidine Allergy Severe RASH Verified 03/08/20 14:34 edetic acid Allergy Severe Coma and Verified 03/08/20 14:34 'bowels shut down' egg Allergy Severe coma and Verified 03/08/20 14:34 "bowels shut down" glycerin Allergy Severe Coma and Verified 03/08/20 14:34 'bowels shut down' isopropyl alcohol Allergy Severe RASH Verified 03/08/20 14:34 propofol Allergy Severe Coma and Verified 03/08/20 14:34 'bowels shut down' adhesive Allergy Intermediate RASH Verified 03/08/20 14:34 heparin Allergy Intermediate Bleed out Verified 03/08/20 14:34 cat dander Allergy Mild WATERY EYES Verified 03/08/20 14:34 zolpidem [From Ambien] AdvReac Intermediate Sensation Verified 03/08/20 14:34 of skin cawling and jittery Past Med/Surg History Medical History Anemia Anemia due to chronic kidney disease Asthma Atrial flutter Atypical chest pain Bicuspid aortic valve HX REPLACED 2007 Cardiomyopathy Chronic kidney disease ? 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 PAZ Peripheral neuropathy Stroke Surgical History H/O aortic valve repair 1968, 1981, 2007 H/O heart surgery mechanical aortic valve and arch repair ([facility]) 2007, [facility] History of anesthesia reaction SEE ALLERGIES LAST HEART CATH/WAS AWAKE DURING ENTIRE PROCEDURE LAST COLONOSCOPY-WOKE UP IN MIDDLE OF PROCEDURE History of aortic valve replacement 25 millimeter [employer] valve placed in 2007, [facility]. History of cardiac cath (TOTAL 5 OR 6) LAST ONE AUGUST 2018 History of colonoscopy History of herniorrhaphy 2010 History of tooth extraction Family History Grandmother Heart disease Uncle Heart disease Other Asthma Diabetes Emphysema, unspecified Hypertension Lung disease Denies family history of Cancer Social History Smoking Status: Former smoker packs per day: 1; Number of Years Since Quit: 6; Second Hand Exposure: No; Hx Alcohol Use: No Hx Substance Use: No Preferred Language: Irish Communication Ability: Effective Machine Guide Base Winder Required: No Beliefs That Will Affect Care: None marital status: Single Current Living Situation: Alone current occupational status: disabled current occupation: Disabled How many Children do You have: 0 Feels Safe at Home: Yes Assistive Devices: None Review of Systems 10 system review was performed and was negative except for pertinent positives and negatives as indicated in history of present illness Physical Exam Vital Signs Vital Signs - 24 hr 03/08/20 13:37 03/08/20 14:27 03/08/20 15:26 Temperature 36.7 C Temperature Source Oral Pulse Rate 83 Pulse Rate [Apical] 79 Pulse Rhythm Regular Pulse Strength Normal Respiratory Rate 18 18 Respiratory Effort / Characteristics Non-Labored Spontaneous Respiratory Depth Normal Respiratory Pattern Regular Blood Pressure 97/67 L Blood Pressure [Left Arm] 111/69 Blood Pressure Mean 77 Blood Pressure Mean [Left Arm] 83 Blood Pressure Position Sitting Pulse Oximetry 99 99 100 Oxygen Delivery Method Room Air Room Air Sepsis Recent Fever Within 48 Hours No Sepsis New/Unexplained Change in Mental Status No Sepsis Action Taken by Nursing No Action Required 03/08/20 17:37 Temperature Temperature Source Pulse Rate Pulse Rate [Apical] 87 Pulse Rhythm Pulse Strength Respiratory Rate 18 Respiratory Effort / Characteristics Non-Labored Respiratory Depth Normal Respiratory Pattern Blood Pressure Blood Pressure [Left Arm] 122/74 Blood Pressure Mean Blood Pressure Mean [Left Arm] 90 Blood Pressure Position Pulse Oximetry 100 Oxygen Delivery Method Room Air Sepsis Recent Fever Within 48 Hours Sepsis New/Unexplained Change in Mental Status Sepsis Action Taken by Nursing CONSTITUTIONAL: Healthy and well nourished. Patient does not appear in any acute distress. Alert and oriented x3. HEENT: Normocephalic, atraumatic. Pupils equal, round and reactive. Mild conjunctival pallor is noted. NECK: Full active range of motion without discomfort. LYMPHATICS: No cervical chain adenopathy. RESPIRATORY: Clear to auscultation bilaterally with no wheezing, crackles, rhonchi or stridor. CARDIOVASCULAR: Mechanical valve sounds are noted without obvious rubs or gallops. GASTROINTESTINAL: Bowel sounds present in all quadrants. Abdomen is soft and n ontender to palpation. MUSCULOSKELETAL: Full range of motion of all joints without discomfort. INTEGUMENTARY: No rash or other significant dermatologic conditions noted. HEMATOLOGIC: No ecchymosis or petechiae. PSYCHIATRIC: Positive affect. NEUROLOGIC: No focal neurologic deficits noted. Course Course Patient history and physical exam were performed. Nurse's notes were reviewed. Vital signs were reviewed, showing a blood pressure of 97/67. Review of prior vital signs shows that the patient is usually hypotensive. Patient is currently not febrile or tachycardic. O2 saturation is 99% on room air. IV access was established, and labs were drawn, including blood type and screen. A portable chest x-ray does not show any failure pattern, consolidations or pneumothorax. An ECG shows an atrial flutter with variable AV block. Comparison was made with a prior ECG of 03/08/2020 without any acute changes. The studies were reviewed with Dr. Turpin, ED attending physician. An order was placed for compliance monitor , and the patient had no further dysrhythmias while in the emergency department. Review of labs shows an actual improvement of his hemoglobin to 9.0. The patient continues to remain leukopenic with normal platelet count. Creatinine is 2.82 which is baseline for the patient. INR is 1.9. Electrolytes are otherwise grossly normal, and troponin was also normal. After work-up was completed, findings were discussed with the patient. I explained that he appears to be normal at this time, and recommended that I contact his PCPs office to arrange for close follow-up. After leaving a message for the nurse call back, I received a phone call from Dr. Jaquez who is requesting a transfer of the patient to [facility] for surgical intervention. I agreed to do so, and after discussing the case with the patient, he was also in agreement to be transferred. We then spoke with the transfer center who reports that [facility] is currently in critical status with no available beds. I then discussed the case further with Dr. Turpin and our [employer] Crew Leader who recommended contacting the [facility] hospitalist to see if they would observe the patient until the patient could be transferred. The case was discussed with Dr. Kang who graciously agreed to this plan. Please see her dictation for further treatment until transfer can be completed. Administered Medications Discontinued Medications Sodium Chloride (Nss 1000ml) 1,000 mls @ 999 mls/hr IV .Q1H1M ONE Stop: 03/08/20 15:07 Last Infusion: 03/08/20 16:27 Dose: 0 mls/hr Documented by: [id number] Admin: 03/08/20 14:31 Dose: 999 mls/hr Documented by: [id number] Medical Decision Making Medical Records Attestation: I reviewed the patient's medical records. Home Medications Current Medication List: was personally reviewed by me Laboratory Data Attestation: I reviewed the patient's lab results. Result diagrams: 03/08/20 14:17 03/08/20 14:17 Lab Results 03/08/20 03/08/20 03/08/20 Range/Units 14:17 14:17 14:17 WBC 1.87 L (4.8-10.8) K/uL RBC 4.00 L (4.7-6.1) M/uL Hgb 9.0 L (14.0-18.0) g/dL Hct 29.7 L (42-52) % MCV 74.3 L (80-100) fL MCH 22.5 L (25-34) pg MCHC 30.3 L (32-36) g/dL RDW Std Deviation 47.5 H (36.4-46.3) fL RDW Coeff of Tricia 17.5 H (11.5-14.5) % Plt Count 142 (130-400) K/uL MPV 9.5 (7.4-10.4) fL Immature Gran % (Auto) 0.5 % Neut % (Auto) 57.2 % Lymph % (Auto) 30.5 % Morehouse % (Auto) 9.1 % Eos % (Auto) 2.7 % Baso % (Auto) 0.0 % Neut # (Auto) 1.07 L (1.4-6.5) K/uL Lymph # (Auto) 0.57 L (1.2-3.4) K/uL Morehouse # (Auto) 0.17 (0.11-0.59) K/uL Eos # (Auto) 0.05 (0-0.5) K/uL Baso # (Auto) 0.00 (0-0.2) K/uL Immature Gran # (Auto) 0.01 (0.00-0.02) K/uL Hypochromasia Present Microcytosis Present Ovalocytes 1+ PT (9.0-12.0) Seconds INR (0.9-1.1) APTT (21.0-31.0) Seconds PTT Ratio Sodium 137 (136-145) mmol/L Potassium 4.1 (3.5-5.1) mmol/L Chloride 105 (98-107) mmol/L Carbon Dioxide 25 (21-32) mmol/L Anion Gap 8.0 (3-11) BUN 42 H (7-18) mg/dl Creatinine 2.82 H (0.6-1.4) mg/dl Est Cr Clr Drug Dosing 24.9 ml/min Est GFR ( Amer) 28.7 Est GFR (Non-Af Amer) 24.8 BUN/Creatinine Ratio 14.8 (10-20) Glucose 99 (70-99) mg/dl Calcium 9.1 (8.5-10.1) mg/dl Total Bilirubin 0.6 (0.2-1) mg/dl AST 12 L (15-37) U/L ALT 15 (12-78) U/L Alkaline Phosphatase 76 (45-117) U/L Troponin I < 0.015 (0-0.045) ng/ml Total Protein 7.0 (6.4-8.2) gm/dl Albumin 3.2 L (3.4-5.0) gm/dl Globulin 3.8 (2.5-4.0) gm/dl Albumin/Globulin Ratio 0.8 L (0.9-2) Blood Type AB Positive Antibody Screen POSITIVE A Antibody Identification Anti-C 03/08/20 Range/Units 14:17 WBC (4.8-10.8) K/uL RBC (4.7-6.1) M/uL Hgb (14.0-18.0) g/dL Hct (42-52) % MCV (80-100) fL MCH (25-34) pg MCHC (32-36) g/dL RDW Std Deviation (36.4-46.3) fL RDW Coeff of Tricia (11.5-14.5) % Plt Count (130-400) K/uL MPV (7.4-10.4) fL Immature Gran % (Auto) % Neut % (Auto) % Lymph % (Auto) % Morehouse % (Auto) % Eos % (Auto) % Baso % (Auto) % Neut # (Auto) (1.4-6.5) K/uL Lymph # (Auto) (1.2-3.4) K/uL Morehouse # (Auto) (0.11-0.59) K/uL Eos # (Auto) (0-0.5) K/uL Baso # (Auto) (0-0.2) K/uL Immature Gran # (Auto) (0.00-0.02) K/uL Hypochromasia Microcytosis Ovalocytes PT 18.9 H (9.0-12.0) Seconds INR 1.9 H (0.9-1.1) APTT 29.9 (21.0-31.0) Seconds PTT Ratio 1.1 Sodium (136-145) mmol/L Potassium (3.5-5.1) mmol/L Chloride (98-107) mmol/L Carbon Dioxide (21-32) mmol/L Anion Gap (3-11) BUN (7-18) mg/dl Creatinine (0.6-1.4) mg/dl Est Cr Clr Drug Dosing ml/min Est GFR ( Amer) Est GFR (Non-Af Amer) BUN/Creatinine Ratio (10-20) Glucose (70-99) mg/dl Calcium (8.5-10.1) mg/dl Total Bilirubin (0.2-1) mg/dl AST (15-37) U/L ALT (12-78) U/L Alkaline Phosphatase (45-117) U/L Troponin I (0-0.045) ng/ml Total Protein (6.4-8.2) gm/dl Albumin (3.4-5.0) gm/dl Globulin (2.5-4.0) gm/dl Albumin/Globulin Ratio (0.9-2) Blood Type Antibody Screen Antibody Identification Imaging Data Attestation: I personally reviewed and interpreted this imaging study as follows: My Impression: My interpretation of reportable chest x-ray does not show any consolidations, pneumothorax or failure pattern. Radiologist's Impression: XR chest 1V portable CLINICAL HISTORY: GI BLEED COMPARISON STUDY: Chest CT April 11, 2019. Chest radiograph January 25, 2020. FINDINGS: Note is made of median sternotomy wires and a prosthetic cardiac valve. Cardiomegaly is unchanged. Mediastinal contours are stable. There is no pneumothorax or evidence for pulmonary edema. There is no consolidation to suggest pneumonia. There are possible trace bilateral pleural effusions. IMPRESSION: 1. Trace bilateral pleural effusions. 2. Moderate cardiomegaly without evidence for pulmonary edema. ECG Data Attestation: I personally reviewed and interpreted this ECG as follows: Indication: + other (GI bleed, history of aortic valve replacement) Rate (beats per minute): 86 Rhythm: + atrial flutter ECG Intervals/blocks: + Normal QT ECG Findings: + Other Comparison ECG Date: from (03/08/2020) Change: no significant change Blood Pressure Blood Pressure Findings: Normal blood pressure MDM Narrative Cardiac monitoring: An order was placed for continuous cardiac monitoring. The monitor shows a rate of 84 bpm with atrial flutter and variable AV block. air sampling and monitoring history was reviewed throughout the evaluation, and no dysrhythmias were noted. Patient presents to the emergency department with complaint of rectal bleeding from internal hemorrhoids. He is currently under the care of a colorectal s urgeon at [facility]. The patient also has a known history of chronic anemia secondary to stage IV chronic kidney disease. The case is also complicated with the fact that the patient is on Coumadin for a mechanical aortic valve. It is noted that the patient's hemoglobin has improved since labs were performed 4 days ago. The patient continues to remain leukopenic. Creatinine is baseline today. Additional work-up is not suggestive of any other end-organ injury. Impression & Plan Bright red rectal bleeding, Internal bleeding hemorrhoids, History of mechanical aortic valve replacement, Anemia due to stage 4 chronic kidney disease Discharge Plan Visit Data Chief Complaint: Rectal Bleed Stated Complaint: DR VALENZUELA PT RECTAL BLEEDING ED Provider: James Turpin ED Midlevel Provider: Clarence Bull Discharge Problem: Bright red rectal bleeding, Internal bleeding hemorrhoids, History of mechanical aortic valve replacement, Anemia due to stage 4 chronic kidney disease Patient Disposition: Home - Self-Care Discharge Instructions Activity Restrictions/Additional Instructions: Continue follow-up with your family doctor for further definitive management of your bleeding internal hemorrhoids. Return to the emergency department for any progressively worsening symptoms. Forms Stand Alone Forms: My [facility], [facility] Emergency Department, Important Visit Information Prescriptions Prescriptions: No Action Incruse Ellipta 62.5 mcg/actuation blister with device 1 puffs INH DAILY Qty: 30 RF: 3 albuterol sulfate [Ventolin HFA] 90 mcg/actuation HFA aerosol inhaler 2 puff inhalation QID PRN (Reason: Shortness Of Breath Or Wheezing) Qty: 18 R F: 3 azelastine 137 mcg (0.1 %) aerosol,spray 1 spray INTNAS BID Qty: 30 RF: 3 melatonin 3 mg tablet 3 mg PO HS RF: 0 sildenafil (pulm.hypertension) [Revatio] 20 mg tablet 10 mg PO TID RF: 0 venlafaxine 25 mg tablet 12.5 mg PO BID RF: 0 calcitriol 0.25 mcg capsule 0.25 mcg PO UD Qty: 45 RF: 3 warfarin 2 mg tablet 5 mg PO DAILY RF: 0 posaconazole [Noxafil] 200 mg/5 mL (40 mg/mL) suspension 25 mg PO BID RF: 0 mometasone 0.1 % Cream 1 applic TOPICAL BID PRN (Reason: Dermatitis) RF: 0 ZzzQuil 50 mg/30 mL Liquid 25 mg PO HS PRN (Reason: Sleep) RF: 0 guaifenesin 600 mg Tablet Extended Release 12hr 600 mg PO HS RF: 0 furosemide [Lasix] 20 mg tablet 40 - 60 mg PO Q2D RF: 0 metoprolol succinate [Toprol XL] 100 mg tablet extended release 24 hr 100 mg PO HS RF: 0 fluocinonide 0.05 % solution 1 applic TOPICAL BID PRN (Reason: Skin Irritation) RF: 0 Referrals Referrals: Aguila Pollard MD [Primary Care Provider] -
[2020-03-08 14:34] LABS: Eosinophils # (auto) 0.05 K/uL (0-0.5); Eosinophils % (auto) 2.7 %; Hematocrit (blood only) 29.7 % (42-52); Immature Granulocytes # (auto) 0.01 K/uL (0.00-0.02); Immature Granulocytes % (auto) 0.5 %; Lymphocytes # (auto) 0.57 K/uL (1.2-3.4); Lymphocytes % (auto) 30.5 %; Mean Corpuscular Hemoglobin 22.5 pg (25-34); Mean Corpuscular Hgb Conc 30.3 g/dL (32-36); Mean Corpuscular Volume 74.3 fL (80-100); Mean Platelet Volume 9.5 fL (7.4-10.4); Monocytes # (auto) 0.17 K/uL (0.11-0.59); Monocytes % (auto) 9.1 %; Neutrophils # (auto) 1.07 K/uL (1.4-6.5); Neutrophils % (auto) 57.2 %; Platelet Count 142 K/uL (130-400); RDW Coefficient of Variation 17.5 % (11.5-14.5); RDW Standard Deviation 47.5 fL (36.4-46.3); White Blood Count 1.87 K/uL (4.8-10.8)
[2020-03-08 14:44] LABS: INR 1.9 (0.9-1.1); Partial Thromboplastin Ratio 1.1; Partial Thromboplastin Time 29.9 Seconds (21.0-31.0); Prothrombin Time 18.9 Seconds (9.0-12.0)
[2020-03-08 14:56] LABS: Hypochromasia Present; Microcytosis Present; Ovalocytes 1+
[2020-03-08 15:04] LABS: Alanine Aminotransferase 15 U/L (12-78); Albumin Globulin Ratio 0.8 (0.9-2); Albumin Level 3.2 gm/dl (3.4-5.0); Alkaline Phosphatase 76 U/L (45-117); Aspartate Aminotransferase 12 U/L (15-37); BUN Creatinine Ratio 14.8 (10-20); Bilirubin,Total 0.6 mg/dl (0.2-1); Blood Urea Nitrogen 42 mg/dl (7-18); Calcium 9.1 mg/dl (8.5-10.1); Carbon Dioxide 25 mmol/L (21-32); Chloride 105 mmol/L (98-107); Creatinine Clr Calc Pharmacy 24.9 ml/min; Est GFR (African American) 28.7; Est GFR (Non-African American) 24.8; Globulin 3.8 gm/dl (2.5-4.0); Glucose 99 mg/dl (70-99); Potassium 4.1 mmol/L (3.5-5.1); Sodium 137 mmol/L (136-145); Troponin I < 0.015 ng/ml (0-0.045)
--- NOTE | 2020-03-08 15:10 | XRay Report ---
XR chest 1V portable CLINICAL HISTORY: GI BLEED COMPARISON STUDY: Chest CT April 11, 2019. Chest radiograph January 25, 2020. FINDINGS: Note is made of median sternotomy wires and a prosthetic cardiac valve. Cardiomegaly is unc hanged. Mediastinal contours are stable. There is no pneumothorax or evidence for pulmonary edema. Th ere is no consolidation to suggest pneumonia. There are possible trace bilateral pleural effusions. IMPRESSION: 1. Trace bilateral pleural effusions. 2. Moderate cardiomegaly without evidence for pulmonary edema. ACT 112: Negative or not required by law. Electronically signed by: Stevie Blanc M.D. 03/08/2020 3:08 PM
--- NOTE | 2020-03-08 17:58 | Emergency Department Note ---
ED Visit Note The patient was seen and examined with octavio. I agree with the history, physical and findings. Please see the note for disposition and details. .
--- NOTE | 2020-03-08 19:04 | History & Physical Report ---
Date of Service March 08, 2020 Assessment & Plan (1) Acute blood loss anemia: 2nd to ongoing rectal bleeding from known internal hemorrhoids. BRBPR has been present intermittently for months, but worse in the last few weeks as evidenced by worsening hemoglobin levels over the summer. Has been evaluated by Dr Mookie Jaquez, [facility] colorectal surgery, for his internal hemorrhoids. In fact he was seen in the [place] office today by Dr Jaquez who recommended admission to the hospital for hemorroidectomy. The patient has been accepted at [facility], but currently there are no beds. Thus, patient is being admitted for his acute blood loss anemia/symptomatic anemia due to his hemorrhoids. Plan - * allow diet as tolerated * recheck H/H tonight then CBC in am * Tx if hemoglobin is <8; of note- patient does have antibodies on type/screen * Give venofer 200mg IV x 1; received 200mg on 03/06 as outpatient at [facility] * for hemorrhoids - trial of anusol suppositories - 25mg [place] q6h; he used these in the distant past * avoid straining thus add miralax and colace * HOLD coumadin; noted that he had a psoas hematoma on heparin products during a prior admission at [place] (2) Internal bleeding hemorrhoids: Chronic, but acutely worse over the last several weeks with copious BRBPR and resulting Fe deficiency/acute blood loss anemia. Evaluated today by Dr Mookie Jaquez, [facility] colorectal surgery, in [place] office. Advised admission to [facility] for [place] management given chronicity and worsening of bleeding. Hold coumadin. Anusol suppos q6h. Avoid straining. Bowel regimen to soften stool. Serial H/H's. (3) Iron deficiency anemia: 2nd chronic rectal bleeding. Had colonoscopy within the last year by Dr Aleks Laura, [facility]; 1 polyp and hemorrhoids by report. Ferritin level 19 on 03/06/20. s/p venofer 200mg on 03/06/20. Will give additional venofer 200mg IV x 1. Serial H/H's. (4) COPD (chronic obstructive pulmonary disease): Significant wheezing on exam today. CXR without infiltrates. Known COPD, follows with [facility]. Schedule albuterol nebs q6h. Defer on antibiotics/steroids for now. Cont mucinex. Add tessalon for cough which is chronic for him. I don't see evidence of pulmonary edema on cxr or hear such on exam tonight. (5) Hypertension: Dr Simental from [facility] recommended reduction of toprol xl from 100mg to 75mg at office visit in late January. Will do so starting today. (6) Chronic systolic CHF (congestive heart failure): Non-ischemic, prior heart cath without CAD. EF 40% per cardiology notes from Dr Simental. Compensated on exam today. Continue toprol xl. Continue lasix - 60mg //; 50mg //Wed/Wed. Daily weights. May need additional lasix if he requires packed RBCs. (7) History of mechanical aortic valve replacement: Congenital bicuspid AV with aortic stenosis. See "past medical history" for details. s/p [employer] [place] Mech AV in 2007. Chronic coumadin -- INR goal 2-3. Holding coumadin due to severe BRBPR. Ideally would be on heparin bridge while holding coumadin but had significant psoas hematoma with heparin in the past. Patient expressed considerable concern with use of heparin here or at [place] thus defer heparin or lovenox bridge for now. INR in am. (8) Congenital heart disease: See PMH in this H/P as well as above. (9) Pulmonary hypertension: Mod/severe on most recent cardiac cath (08/2018). Continue revatio TID. (10) Chronic cough: COPD? Well-documented in Dr Simental's office notes. Moderate COPD on last PFTs done at [facility]. Nebs as ordered; mucinex; tessalon. (11) Pancytopenia: Chronic. etiology? CBC in am for stability. (12) Atrial flutter: History of Paroxysmal a flutter, but during previous admission was in a.flutter and is in either a.fib or flutter this evening. Seems that he has chronic a flutter rather than paroxysmal. Either way continue beta natalie. Telemetry status. (13) Chronic kidney disease, stage 4 (severe): Baseline Cr about 2.5-2.8. 2.8 today. BMP am for stability. 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 Use home stock of posaconazole 25mg BID. LFTs noted to be normal. (15) DVT prophylaxis: SCDs hold coumadin await transfer to [facility] when bed is available History of Present Illness Chief Complaint: rectal bleeding Primary Care Provider: Aguila Pollard MD 49yo male with complex medical history including congenital aortic stenosis/supravalvular aortic stenosis with bicuspid valve s/p aortotomy at 10 months of life, aortic valve commissurotomy at 11yo, and mechanical aortic valve replacement in [address] [employer] mechanical valve (aortic root graft & jag- arch replacement also performed 2007)- on chronic coumadin- who presents with worsening rectal bleeding. Present x 1 year but much worse in the last few weeks. He is having 2-3 bloody stools/day. The blood is moderate to large in quantity. The bleeding is bright red and typically mixed in with his stools. When he wipes after having a stool he has significant bright red blood. Follows with Dr Aleks Laura, [facility], and had a colonoscopy within the last year. This showed 1 polyp that was removed, and he had internal hemorrhoids. He has seen Dr Mookie Jaquez, colorectal surgeon at [facility]. He actually saw him in the [place] office today. During that visit Dr Jaquez recommended hemorroidectomy and made arrangements for admission to [facility] but no bed was available. Thus, patient came to our ER for evaluation & potential admission. Last blood work was 03/06/20, at [facility] office. Hemoglobin at that time was 8.4. Hemoglobin in December and January was 10-11 range. He received IV venofer yesterday at [facility], arranged by Dr Casarez ([facility]). A dose of 200mg was given without incident. Patient reports weakness and shortness of breath with walking short distances. He has had fatigue, restless legs, cravings for ice/cold beverages, and mild chest tightness with exertion. He has a well-documented chronic cough per records and past PFTs showed moderate COPD. Allergies Allergy/AdvReac Type Severity Reaction Status Date / Time amphotericin B Allergy Severe severe Verified 03/08/20 14:34 rigors, chills/fever/sweats-hypothalmus irregularity chlorhexidine Allergy Severe RASH Verified 03/08/20 14:34 edetic acid Allergy Severe Coma and Verified 03/08/20 14:34 'bowels shut down' egg Allergy Severe coma and Verified 03/08/20 14:34 "bowels shut down" glycerin Allergy Severe Coma and Verified 03/08/20 14:34 'bowels shut down' isopropyl alcohol Allergy Severe RASH Verified 03/08/20 14:34 propofol Allergy Severe Coma and Verified 03/08/20 14:34 'bowels shut down' adhesive Allergy Intermediate RASH Verified 03/08/20 14:34 heparin Allergy Intermediate Bleed out Verified 03/08/20 14:34 cat dander Allergy Mild WATERY EYES Verified 03/08/20 14:34 zolpidem [From Ambien] AdvReac Intermediate Sensation Verified 03/08/20 14:34 of skin cawling and jittery Home Medications Home Medications Medication Instructions Recorded Confirmed Type furosemide [Lasix] 40 - 60 mg PO Q2D 10/22/18 03/08/20 History fluocinonide 1 applic TOPICAL BID PRN 06/09/19 03/08/20 History metoprolol succinate [Toprol XL] 100 mg PO HS 06/09/19 03/08/20 History umeclidinium 62.5 mcg/actuation 1 puffs INH DAILY #30 ea 12/05/19 03/08/20 Rx blister powder for inhalation ZzzQuil 25 mg PO HS PRN 01/25/20 03/08/20 History guaifenesin 600 mg PO HS 01/25/20 03/08/20 History mometasone 1 applic TOPICAL BID PRN 01/25/20 03/08/20 History posaconazole [Noxafil] 25 mg PO BID 01/25/20 03/08/20 History warfarin 5 mg PO DAILY 01/25/20 03/08/20 History albuterol sulfate 90 mcg/actuation 2 puff INHALATION QID PRN #18 g 03/06/20 03/08/20 Rx aerosol inhaler azelastine 137 mcg (0.1 %) nasal 1 spray INTNAS BID #30 ml 03/06/20 03/08/20 Rx spray aerosol calcitriol 0.25 mcg capsule 0.25 mcg PO UD #45 cap 03/06/20 03/08/20 Rx melatonin 3 mg tablet 3 mg PO HS 03/06/20 03/08/20 History sildenafil (pulm.hypertension) 20 10 mg PO TID tab 03/06/20 03/08/20 History mg tablet venlafaxine 25 mg tablet 12.5 mg PO BID tab 03/06/20 03/08/20 History Past Med/Surg History Medical History (Updated 03/08/20 @ 20:57 by Kristian Dinero) Anemia due to chronic kidney disease Bicuspid aortic valve HX REPLACED 2007 Cardiomyopathy Central retinal artery occlusion of left eye age 38 Chronic kidney disease, stage 4 (severe) baseline creatinine 2.5 Chronic systolic CHF (congestive heart failure) EF 40%; nonischemic. Follows with Dr Michoacano Simental, [facility]. 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 Internal bleeding hemorrhoids Paroxysmal atrial flutter along with atrial tachycardia Peripheral neuropathy Psoas hematoma, left, secondary to anticoagulant therapy Pulmonary HTN moderate/severe. On chronic revatio. Surgical History H/O aortic valve repair 1968, 1981, 2007 H/O heart surgery mechanical aortic valve and arch repair ([place]) 2007, [facility] History of anesthesia reaction SEE ALLERGIES LAST HEART CATH/WAS AWAKE DURING ENTIRE PROCEDURE LAST COLONOSCOPY-WOKE UP IN MIDDLE OF PROCEDURE History of aortic valve replacement 25 millimeter [employer] valve placed in 2007, [facility]. History of cardiac cath (TOTAL 5 OR 6) LAST ONE AUGUST 2018 History of colonoscopy History of herniorrhaphy 2010 History of tooth extraction Family History (Updated 03/08/20 @ 19:21 by Kristian Dinero) Grandmother , paternal Heart disease Uncle Heart disease Mother No problems noted. Father No problems noted. Other Asthma Diabetes Emphysema, unspecified Hypertension Lung disease Denies family history of Cancer Social History (Updated 03/08/20 @ 19:23 by Kristian Dinero) Smoking Status: Former smoker packs per day: 1; Years Smoked: 25; Number of Years Since Quit: 6; Second Hand Exposure: No; Hx Alcohol Use: No (quit 1-2 years ago; heavy in the past. 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 Beliefs That Will Affect Care: None marital status: Single Current Living Situation: Alone Current Living Situation Comment: lives in [place] current occupational status: disabled current occupation: Disabled How many Children do You have: 0 Feels Safe at Home: Yes Safety Concerns: Feels Safe At This Time Assistive Devices: None Review of Systems Constitutional: no fever, no chills, no anorexia and no weight loss Eyes: + worsening vision Ear, Nose, Mouth, Throat: no dysphagia Respiratory: + cough (chronic) and + dyspnea on exertion Cardiovascular: + chest pain; no edema Gastrointestinal: + blood in stools; no abdominal pain, no vomiting and no melena Genitourinary: no dysuria and no difficulty urinating Musculoskeletal: no joint pain Integumentary: no rash Neurologic: no numbness Psychiatric: no depression and no anxiety Endocrine: no diabetes Hematologic / Lymphatic: no easy bruising Physical Exam Constitutional: well developed and well nourished; no acute distress and no altered mental status coughing Eyes: + anicteric sclerae and PERRL ENMT: external ear and nose normal, oropharynx normal Ears: no TM abnormality Neck: trachea midline, no thyromegaly Respiratory: no respiratory distress Auscultation: + wheezes (b/l); no crackles Cardiovascular: Rate/Rhythm: regular rate and regular rhythm Heart Sounds: normal S1, + click (mechanical - s1 s2) and + murmur (1/6 systolic LSB); + abnormal S2 (mechanical closure sound) Vessels: posterior tibial pulses present and dorsalis pedis pulses present; no JVD Extremities: no edema Gastrointestinal (Abdomen): normal bowel sounds, soft, nontender, no hepatosplenomegaly Percussion/Palpation: + hernia (umbilical, very small - reducible) anal skin tags present; no external hemorrhoids; JIM deferred Musculoskeletal: no cyanosis or clubbing, extremities motor strength 5/5 Skin: no rashes, warm and dry Neurologic: moves all extremities; no focal motor deficits DTRs brisk, 2-3+ b/l Psychiatric: Orientation: alert and oriented x 3 Affect: + anxious affect Lymphatic: no cervical lymphadenopathy Results & Data Results & Data ([facility]) Vital Signs (Past 12 Hours) Vital Signs Temp Pulse Pulse Resp BP BP Pulse Ox 03/08/20 17:37 87 18 122/74 100 03/08/20 15:26 79 18 111/69 100 03/08/20 14:27 99 03/08/20 13:37 36.7 C 83 18 97/67 L 99 Laboratory Results Laboratory Results - last 24 hr 03/08/20 03/08/20 03/08/20 14:17 14:17 14:17 WBC 1.87 L RBC 4.00 L Hgb 9.0 L Hct 29.7 L MCV 74.3 L MCH 22.5 L MCHC 30.3 L RDW Std Deviation 47.5 H RDW Coeff of Tricia 17.5 H Plt Count 142 MPV 9.5 Immature Gran % (Auto) 0.5 Neut % (Auto) 57.2 Lymph % (Auto) 30.5 Meriwether % (Auto) 9.1 Eos % (Auto) 2.7 Baso % (Auto) 0.0 Neut # (Auto) 1.07 L Lymph # (Auto) 0.57 L [place]ether # (Auto) 0.17 Eos # (Auto) 0.05 Baso # (Auto) 0.00 Immature Gran # (Auto) 0.01 Hypochromasia Present Microcytosis Present Ovalocytes 1+ PT INR APTT PTT Ratio Sodium 137 Potassium 4.1 Chloride 105 Carbon Dioxide 25 Anion Gap 8.0 BUN 42 H Creatinine 2.82 H Est Cr Clr Drug Dosing 24.9 Est GFR ( Amer) 28.7 Est GFR (Non-Af Amer) 24.8 BUN/Creatinine Ratio 14.8 Glucose 99 Calcium 9.1 Total Bilirubin 0.6 AST 12 L ALT 15 Alkaline Phosphatase 76 Troponin I < 0.015 Total Protein 7.0 Albumin 3.2 L Globulin 3.8 Albumin/Globulin Ratio 0.8 L Blood Type AB Positive Antibody Screen POSITIVE A Antibody Identification Anti-C Antibody ID Comment Pending 03/08/20 14:17 WBC RBC Hgb Hct MCV MCH MCHC RDW Std Deviation RDW Coeff of Tricia Plt Count MPV Immature Gran % (Auto) Neut % (Auto) Lymph % (Auto) [place] % (Auto) Eos % (Auto) Baso % (Auto) Neut # (Auto) Lymph # (Auto) [place]ether # (Auto) Eos # (Auto) Baso # (Auto) Immature Gran # (Auto) Hypochromasia Microcytosis Ovalocytes PT 18.9 H INR 1.9 H APTT 29.9 PTT Ratio 1.1 Sodium Potassium Chloride Carbon Dioxide Anion Gap BUN Creatinine Est Cr Clr Drug Dosing Est GFR ( Amer) Est GFR (Non-Af Amer) BUN/Creatinine Ratio Glucose Calcium Total Bilirubin AST ALT Alkaline Phosphatase Troponin I Total Protein Albumin Globulin Albumin/Globulin Ratio Blood Type Antibody Screen Antibody Identification Antibody ID Comment Diagnostic Findings CXR: no pulmonary edema. EKG: my reading - afib vs aflutter; ST segment depression inferior leads and V6; in comparison to previous EKG - no changes (prior EKG with aflutter) Code Status & VTE Plan Code Status full VTE Prophylaxis Plan VTE Prophylaxis will be ordered: Yes PG Care Time/CCT Total # of Minutes Spent Total Time Spent with Patient: Total time spent is greater than 50% in co ordination of care (as documented) at patient's floor/unit and/or counseling patient: Coding Level of Care Code 34423 OBS Care - Level 3 Diagnoses Acute blood loss anemia D62 Internal bleeding hemorrhoids K64.8 Iron deficiency anemia D50.0 Iron deficiency anemia type: chronic blood loss COPD (chronic obstructive pulmonary disease) J44.9 COPD type: unspecified COPD Hypertension I10 Hypertension type: essential hypertension Chronic systolic CHF (congestive heart failure) I50.22 History of mechanical aortic valve replacement Z95.2 Congenital heart disease Q24.9 Pulmonary hypertension I27.20 Chronic cough R05 Pancytopenia D61.818 Atrial flutter I48.92 Atrial flutter type: unspecified Chronic kidney disease, stage 4 (severe) N18.4 Fungemia B49 DVT prophylaxis Z29.9 (1) COPD (chronic obstructive pulmonary disease) COPD type: unspecified COPD Qualified Code(s): J44.9 - Chronic obstructive pulmonary disease, unspecified (2) Hypertension Hypertension type: essential hypertension Qualified Code(s): I10 - Essential (primary) hypertension (3) Iron deficiency anemia Iron deficiency anemia type: chronic blood loss Qualified Code(s): D50.0 - Iron deficiency anemia secondary to blood loss (chronic) (4) Atrial flutter Atrial flutter type: unspecified Qualified Code(s): I48.92 - Unspecified atrial flutter
[2020-03-08] MEDS: ALBUTEROL 0.083% NEBU SOLN 3 ML VIAL NEB SCH (20:28)
[2020-03-08] MEDS ORDERED: NON-FORMULARY PATIENT'S OWN MED SCH (21:00)
[2020-03-08] MEDS ORDERED: MOMETASONE FUROATE 0.1% CR 15 GM TUBE EXT PRN (21:12)
[2020-03-08] MEDS ORDERED: METOPROLOL SUCC 25MG EXT REL TAB PO SCH (21:12)
[2020-03-08] MEDS ORDERED: guaiFENesin 600 MG TABCR PO SCH (21:12)
[2020-03-08] MEDS ORDERED: ONDANSETRON INJ 2 MG/ML 2 ML VIAL IV PRN (21:12)
[2020-03-08] MEDS ORDERED: MELATONIN 3 MG TAB PO SCH (21:12)
[2020-03-08] MEDS ORDERED: ALBUTEROL HFA 8 GM INHALER INH PRN (21:12)
[2020-03-08 21:39] LABS: Hematocrit (blood only) 26.5 % (42-52); Hemoglobin 7.7 g/dL (14.0-18.0)
[2020-03-08] MEDS ORDERED: IRON SUCROSE 200 MG in 0.9 % SODIUM CHLORIDE 100 ML IV ONE (22:00)
[2020-03-08] MEDS: HYDROCORTISONE ACETATE 25 MG SUPP PR SCH (22:11)
[2020-03-08] MEDS: NON-FORMULARY MEDICATION (Azelastine 1 SPRAYS) SCH (22:14)
[2020-03-08] MEDS: VENLAFAXINE HCL 50 MG TAB PO SCH (22:16)
[2020-03-08] MEDS: SILDENAFIL CITRATE 20 MG TABLET PO SCH (22:19)
[2020-03-08] MEDS: BENZONATATE 100 MG CAPSULE PO SCH (22:20)
[2020-03-08] MEDS ORDERED: SODIUM CHLORIDE 0.9% 250 ML IV PRN (22:22)
[2020-03-08] MEDS: ACETAMINOPHEN 325 MG TAB PO PRN (23:26)
[2020-03-09] MEDS: ALBUTEROL 0.083% NEBU SOLN 3 ML VIAL NEB SCH ×4 (00:25→19:03)
[2020-03-09] MEDS: HYDROCORTISONE ACETATE 25 MG SUPP PR SCH ×4 (01:46→18:28)
[2020-03-09 06:16] LABS: Hematocrit (blood only) 26.2 % (42-52); Hemoglobin 7.9 g/dL (14.0-18.0); Mean Corpuscular Hemoglobin 22.3 pg (25-34); Mean Corpuscular Hgb Conc 30.2 g/dL (32-36); Mean Platelet Volume 9.8 fL (7.4-10.4); Platelet Count 121 K/uL (130-400); RDW Coefficient of Variation 17.7 % (11.5-14.5); RDW Standard Deviation 47.8 fL (36.4-46.3); Red Blood Count 3.54 M/uL (4.7-6.1); White Blood Count 1.97 K/uL (4.8-10.8)
[2020-03-09 06:30] LABS: INR 1.9 (0.9-1.1); Prothrombin Time 19.2 Seconds (9.0-12.0)
[2020-03-09 06:54] LABS: BUN Creatinine Ratio 15.5 (10-20); Calcium 8.4 mg/dl (8.5-10.1); Creatinine Clr Calc Pharmacy 28.8 ml/min; Est GFR (African American) 34.2; Est GFR (Non-African American) 29.5; Potassium 4.2 mmol/L (3.5-5.1)
[2020-03-09] MEDS: NON-FORMULARY MEDICATION (Azelastine 1 SPRAYS) SCH (08:21)
[2020-03-09] MEDS: POLYETHYLENE (MIRALAX) 17 GM PACK PO SCH ×2 (08:22→11:14)
[2020-03-09] MEDS: SILDENAFIL CITRATE 20 MG TABLET PO SCH (08:22)
[2020-03-09] MEDS: BENZONATATE 100 MG CAPSULE PO SCH ×2 (08:23→13:47)
[2020-03-09] MEDS: VENLAFAXINE HCL 50 MG TAB PO SCH (08:24)
[2020-03-09] MEDS ORDERED: FUROSEMIDE 40 MG TAB PO SCH (09:00)
[2020-03-09] MEDS ORDERED: UMECLIDINIUM BROMIDE 62.5MCG/BLISTER 7 PUFFS/INHALER INH SCH (09:00)
[2020-03-09] MEDS ORDERED: DOCUSATE SODIUM 100 MG CAP PO SCH (09:00)
[2020-03-09] MEDS ORDERED: Nursing to Pharmacy Communication SCH (09:45)
[2020-03-09] MEDS ORDERED: SILDENAFIL CITRATE 20 MG TABLET PO SCH ×2 (12:00→14:00)
[2020-03-09 15:23] VITALS: BP 106/66; TEMP 97.5; O2SAT 99
--- NOTE | 2020-03-09 15:44 | Discharge Summary ---
Date of Service March 09, 2020 Admission HPI Per Admitting Provider 49yo male with complex medical history including congenital aortic stenosis/supravalvular aortic stenosis with bicuspid valve s/p aortotomy at 10 months of life, aortic valve commissurotomy at 11yo, and mechanical aortic valve replacement in [address] [employer]ley mechanical valve (aortic root graft & jag- arch replacement also performed 2007)- on chronic coumadin- who presents with worsening rectal bleeding. Present x 1 year but much worse in the last few weeks. He is having 2-3 bloody stools/day. The blood is moderate to large in quantity. The bleeding is bright red and typically mixed in with his stools. When he wipes after having a stool he has significant bright red blood. Follows with Dr Aleks Laura, [facility], and had a colonoscopy within the last year. This showed 1 polyp that was removed, and he had internal hemorrhoids. He has seen Dr Mookie Jaquez, colorectal surgeon at [facility]. He actually saw him in the [place] office today. During that visit Dr Jaquez recommended hemorroidectomy and made arrangements for admission to [facility] but no bed was available. Thus, patient came to our ER for evaluation & potential admission. Last blood work was 03/06/20, at [facility] office. Hemoglobin at that time was 8.4. Hemoglobin in December and January was 10-11 range. He received IV venofer yesterday at [facility], arranged by Dr Casarez ([facility]). A dose of 200mg was given without incident. Patient reports weakness and shortness of breath with walking short distances. He has had fatigue, restless legs, cravings for ice/cold beverages, and mild chest tightness with exertion. He has a well-documented chronic cough per records and past PFTs showed moderate COPD. Principal Diagnosis Hemorrhoidal bleed Discharge Exam Constitutional WD/WN, vitals as above Eyes EOM intact bilaterally; no conjunctival abnormality ENMT external ear and nose normal, oropharynx normal Neck trachea midline, no thyromegaly normal visual inspection Respiratory normal respiratory effort, lungs clear to auscultation no respiratory distress Cardiovascular RRR, no murmur, no edema Gastrointestinal (Abdomen) Inspection/Auscultation: abdomen normal to inspection; abdomen not distended Musculoskeletal no cyanosis or clubbing, extremities motor strength 5/5 Skin no rashes, warm and dry Neurologic moves all extremities and awake Psychiatric Orientation: alert, oriented to person and cooperative Discharge Data Allergies Allergy/AdvReac Type Severity Reaction Status Date / Time amphotericin B Allergy Severe severe Verified 03/08/20 14:34 rigors, chills/fever/sweats-hypothalmus irregularity chlorhexidine Allergy Severe RASH Verified 03/08/20 14:34 edetic acid Allergy Severe Coma and Verified 03/08/20 14:34 'bowels shut down' egg Allergy Severe coma and Verified 03/08/20 14:34 "bowels shut down" glycerin Allergy Severe Coma and Verified 03/08/20 14:34 'bowels shut down' isopropyl alcohol Allergy Severe RASH Verified 03/08/20 14:34 propofol Allergy Severe Coma and Verified 03/08/20 14:34 'bowels shut down' adhesive Allergy Intermediate RASH Verified 03/08/20 14:34 heparin Allergy Intermediate Bleed out Verified 03/08/20 14:34 cat dander Allergy Mild WATERY EYES Verified 03/08/20 14:34 zolpidem [From Ambien] AdvReac Intermediate Sensation Verified 03/08/20 14:34 of skin cawling and jittery Consultations 03/08/20 17:13 ED Decision to Admit Stat Hospital Course (1) Acute blood loss anemia: 2nd to ongoing rectal bleeding from known internal hemorrhoids. BRBPR has been present intermittently for months, but worse in the last few weeks as evidenced by worsening hemoglobin levels over the summer. Has been evaluated by Dr Mookie Jaquez, [facility] colorectal surgery, for his internal hemorrhoids. In fact he was seen in the [place] office today by Dr Jaquez who recommended admission to the hospital for hemorroidectomy. The patient has been accepted at [facility], but currently there are no beds. Thus, patient is being admitted for his acute blood loss anemia/symptomatic anemia due to his hemorrhoids. Plan - * allow diet as tolerated * recheck H/H tonight then CBC in am * Tx if hemoglobin is <7; of note- patient does have antibodies on type/screen * Hgb stable. No transfusion needed while inpatient. * Give venofer 200mg IV x 1; received 200mg on 03/06 as outpatient at [facility] * for hemorrhoids - trial of anusol suppositories - 25mg MI q6h; he used these in the distant past * avoid straining thus add miralax and colace * HOLD coumadin; noted that he had a psoas hematoma on heparin products during a prior admission at [place] (2) Internal bleeding hemorrhoids: Chronic, but acutely worse over the last several weeks with copious BRBPR and resulting Fe deficiency/acute blood loss anemia. Evaluated today by Dr Mookie Jaquez, [facility] colorectal surgery, in [place] office. Advised admission to [facility] for operative management given chronicity and worsening of bleeding. Hold coumadin. Anusol suppos q6h. Avoid straining. Bowel regimen to soften stool. Serial H/H's. (3) Iron deficiency anemia: 2nd chronic rectal bleeding. Had colonoscopy within the last year by Dr Aleks Laura, [facility]; 1 polyp and hemorrhoids by report. Ferritin level 19 on 03/06/20. s/p venofer 200mg on 03/06/20. Will give additional venofer 200mg IV x 1. Serial H/H's. (4) COPD (chronic obstructive pulmonary disease): Significant wheezing on exam today. CXR without infiltrates. Known COPD, follows with [facility]. Schedule albuterol nebs q6h. Defer on antibiotics/steroids for now. Cont mucinex. Add tessalon for cough which is chronic for him. I don't see evidence of pulmonary edema on cxr or hear such on exam tonight. (5) Hypertension: Dr Simental from [facility] recommended reduction of toprol xl from 100mg to 75mg at office visit in late January. Will do so starting today. (6) Chronic systolic CHF (congestive heart failure): Non-ischemic, prior heart cath without CAD. EF 40% per cardiology notes from Dr Simental. Compensated on exam today. Continue toprol xl. Continue lasix - 60mg //; 50mg //Wed/Sun. Daily weights. May need additional lasix if he requires packed RBCs. (7) History of mechanical aortic valve replacement: Congenital bicuspid AV with aortic stenosis. See "past medical history" for details. s/p [employer] Harley Mech AV in 2007. Chronic coumadin -- INR goal 2-3. Holding coumadin due to severe BRBPR. Ideally would be on heparin bridge while holding coumadin but had significant psoas hematoma with heparin in the past. Patient expressed considerable concern with use of heparin here or at [place] thus defer heparin or lovenox bridge for now. INR in am was 1.9. (8) Congenital heart disease: See PMH in this H/P as well as above. (9) Pulmonary hypertension: Mod/severe on most recent cardiac cath (08/2018). Continue revatio TID. (10) Chronic cough: COPD? Well-documented in Dr Simental's office notes. Moderate COPD on last PFTs done at [facility]. Nebs as ordered; mucinex; tessalon. (11) Pancytopenia: Chronic. etiology? CBC in am for stability. (12) Atrial flutter: History of Paroxysmal a flutter, but during previous admission was in a.flutter and is in either a.fib or flutter this evening. Seems that he has chronic a flutter rather than paroxysmal. Either way continue beta natalie. Telemetry status. (13) Chronic kidney disease, stage 4 (severe): Baseline Cr about 2.5-2.8. 2.8 today. BMP am for stability. 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 Use home stock of posaconazole 25mg BID. LFTs noted to be normal. (15) DVT prophylaxis: SCDs hold coumadin await transfer to [facility] when bed is available Total Time Total Time Spent Total Time Spent (In Minutes): 35 Discharge Plan Discharge Items Patient Disposition: Transfer Acute Care Hospital Reason For Visit: RECTAL BLEEDING 2ND HEMORRHOIDS; ACUTE BLOOD LOSS Discharge Diagnosis: Same Activity: Resume your previous activity Non-emergency contact: Primary Care Provider Call non-emergency contact if: your symptoms worsen Follow-up/Referrals: Aguila Pollard MD [Primary Care Provider] - Diet: Nothing by Mouth Addtl Attending Provider Instructions: Admitted from clinic with lower GI bleed from hemorrhoids. - Hgb stable at 7.9 on discharge. NO transfusions needed. - Warfarin NOT reversed. INR was 1.9 on 03/09. The patient did not want heparin gtt given prior psoas hematoma. Pending Studies at Discharge: No Stand-Alone Forms: My [facility] Skilled Items Patient informed of condition?: Yes DNR: No Discharge Level of Care: Other Communicable Disease: No Discharge Prognosis: Stable Lines: Peripheral IV Urinary Catheter: No Medications and DC Order Prescriptions: Continued Incruse Ellipta 62.5 mcg/actuation blister with device 1 puffs INH DAILY Qty: 30 RF: 3 albuterol sulfate [Ventolin HFA] 90 mcg/actuation HFA aerosol inhaler 2 puff inhalation QID PRN (Reason: Shortness Of Breath Or Wheezing) Qty: 18 RF: 3 azelastine 137 mcg (0.1 %) aerosol,spray 1 spray INTNAS BID Qty: 30 RF: 3 melatonin 3 mg tablet 3 mg PO HS RF: 0 sildenafil (pulm.hypertension) [Revatio] 20 mg tablet 10 mg PO TID RF: 0 venlafaxine 25 mg tablet 12.5 mg PO BID RF: 0 calcitriol 0.25 mcg capsule 0.25 mcg PO UD Qty: 45 RF: 3 warfarin 2 mg tablet 5 mg PO DAILY RF: 0 posaconazole [Noxafil] 200 mg/5 mL (40 mg/mL) suspension 400 mg PO BID RF: 0 mometasone 0.1 % Cream 1 applic TOPICAL BID PRN (Reason: Dermatitis) RF: 0 ZzzQuil 50 mg/30 mL Liquid 25 mg PO HS PRN (Reason: Sleep) RF: 0 guaifenesin 600 mg Tablet Extended Release 12hr 600 mg PO HS RF: 0 furosemide [Lasix] 20 mg tablet 40 - 60 mg PO Q2D RF: 0 metoprolol succinate [Toprol XL] 100 mg tablet extended release 24 hr 100 mg PO HS RF: 0 fluocinonide 0.05 % solution 1 applic TOPICAL BID PRN (Reason: Skin Irritation) RF: 0 Discharge Orders: Discharge Order (Routine); Ordered 03/09/20 Ordered By: Marco Lopez Admission Data Admit Date/Time: 03/08/20 19:54 Attending Provider: Marco Lopez Admit Provider: Kristian Dinero Primary Care Provider: Aguila Pollard Other Providers: Marco Lopez Coding Level of Care Code 32583 OBS Care - Discharge Diagnoses Acute blood loss anemia D62 Internal bleeding hemorrhoids K64.8 Iron deficiency anemia D50.0 Iron deficiency anemia type: chronic blood loss COPD (chronic obstructive pulmonary disease) J44.9 COPD type: unspecified COPD Hypertension I10 Hypertension type: essential hypertension Chronic systolic CHF (congestive heart failure) I50.22 History of mechanical aortic valve replacement Z95.2 Congenital heart disease Q24.9 Pulmonary hypertension I27.20 Chronic cough R05 Pancytopenia D61.818 Atrial flutter I48.92 Atrial flutter type: unspecified Chronic kidney disease, stage 4 (severe) N18.4 Fungemia B49 DVT prophylaxis Z29.9
[2020-03-09 18:16] VITALS: PULSE 71
[2020-03-09] MEDS: ACETAMINOPHEN 325 MG TAB PO PRN (18:28)
[2020-03-09] MEDS ORDERED: POSACONAZOLE PO SCH ×2 (21:00→21:45)
--- NOTE | 2020-03-10 08:22 | Electrocardiogram Report ---
Test Reason : Blood Pressure : / mmHG Vent. Rate : 086 BPM Atrial Rate : 086 BPM P-R Int : 162 ms QRS Dur : 114 ms QT Int : 396 ms P-R-T Axes : -64 028 200 degrees QTc Int : 473 ms Poor data quality, interpretation may be adversely affected Atrial fibrillation Left ventricular hypertrophy with QRS widening and repolarization abnormality Abnormal ECG When compared with ECG of 25-JAN-2020 19:18, No significant change Confirmed by Maurice Charles ([id number]) on 03/10/2020 8:21:46 AM Referred By: Mookie Jaquez Confirmed By:Maurice Charles
[2020-03-11] MEDS ORDERED: FUROSEMIDE 20 MG TAB PO SCH (09:00)
[2020-03-11] MEDS ORDERED: CALCITRIOL 0.25 MCG CAPSULE PO SCH (09:00)
== END 2020-03-09 20:06 | disposition short-term general hospital (02) ==
LOC: ED 13:34 → 2N 13:34 → SUATTDRO 19:54 → 2N 20:26
DX: K64.8 Other hemorrhoids; D61.818 Other pancytopenia; D62 Acute posthemorrhagic anemia; N18.4 Chronic kidney disease, stage 4 (severe); J44.9 Chronic obstructive pulmonary disease, unspecified; Z79.01 Long term (current) use of anticoagulants; Q24.9 Congenital malformation of heart, unspecified; I10 Essential (primary) hypertension; D50.0 Iron deficiency anemia secondary to blood loss (chronic); I50.22 Chronic systolic (congestive) heart failure; Z95.2 Presence of prosthetic heart valve; Z79.899 Other long term (current) drug therapy; I27.20 Pulmonary hypertension, unspecified; Z79.51 Long term (current) use of inhaled steroids; Z86.73 Personal history of transient ischemic attack (TIA), and cerebral infarction without residual deficits; I48.92 Unspecified atrial flutter; Z88.1 Allergy status to other antibiotic agents

== ENCOUNTER 2020-05-23 16:38 | Observation (INO) ==
--- NOTE | 2020-05-23 17:17 | Emergency Department Note ---
History of Present Illness General Chief complaint: Chest Pain Stated complaint: CHEST PAIN, SOB Time Seen by Provider: 05/23/20 16:55 Source: patient History of Present Illness Provider complaint: Chest pain Onset (ago): hour(s) Location: chest Radiation: non-radiation Pain Consistency: + now resolved Quality: + burning Relieved By: + none Associated symptoms: + cough (Mild cough) and + shortness of breath; no fever/chills, no malaise and no nausea/vomiting This is a 50-year-old male with a history of aortic valve replacement, pulmonary hypertension and cardiomyopathy presenting with chest pain starting at approximately 1 PM today while he was getting out of bed. He describes it as a burning in his lungs throughout his chest. It did not radiate anywhere. No alleviating factors. It was associated with some shortness of breath but he does state that he is normally short of breath due to his pulmonary hypertension and cardiomyopathy. He states that the pain resolved about 3 hours later. The reason any came into the emergency department is because it was not going away. He has had similar discomfort for 4 to 5 years now. He states that he has been seen multiple times for this and told mostly it was anxiety. He did have a cardiac catheterization about 2 years ago which showed no blockages in his arteries. He states that he gets this pain every 2 months or so. He is on Coumadin for an aortic valve. He denies any leg swelling or pain. He states that he has had no known exposure to COVID-19, fever, loss of taste or smell, abdominal pain or vomiting. He does have a slight cough which she states is not new for him. Home Medications Medication Instructions Recorded Confirmed Type furosemide [Lasix] 40 mg PO BID 10/22/18 05/23/20 History metoprolol succinate [Toprol XL] 100 mg PO HS 06/09/19 05/23/20 History ZzzQuil 25 mg PO HS PRN 01/25/20 05/23/20 History mometasone 1 applic TOPICAL BID PRN 01/25/20 05/23/20 History posaconazole [Noxafil] 400 mg PO BID 01/25/20 05/23/20 History warfarin 6 mg PO .7XW 01/25/20 05/23/20 History albuterol sulfate 90 mcg/actuation 2 puff INHALATION QID PRN #18 g 03/06/20 05/23/20 Rx aerosol inhaler melatonin 3 mg tablet 3 mg PO HS 03/06/20 05/23/20 History sildenafil (pulm.hypertension) 20 10 mg PO TID tab 03/06/20 05/23/20 History mg tablet venlafaxine 25 mg tablet 25 mg PO BID tab 03/06/20 05/23/20 History calcitriol 0.25 mcg PO 3XWK 05/23/20 05/23/20 History ketoconazole [Nizoral] 1 applic TOPICAL .UD 05/23/20 05/23/20 History polyethylene glycol 3350 [Miralax] 17 g PO DAILY PRN 05/23/20 05/23/20 History psyllium husk [Metamucil] 1 tbsp PO DAILY 05/23/20 05/23/20 History tamsulosin 0.4 mg PO DAILY 05/23/20 05/23/20 History Allergies Allergy/AdvReac Type Severity Reaction Status Date / Time amphotericin B Allergy Severe severe Verified 03/08/20 14:34 rigors, chills/fever/sweats-hypothalmus irregularity chlorhexidine Allergy Severe RASH Verified 03/08/20 14:34 edetic acid Allergy Severe Coma and Verified 03/08/20 14:34 'bowels shut down' egg Allergy Severe coma and Verified 03/08/20 14:34 "bowels shut down" glycerin Allergy Severe Coma and Verified 03/08/20 14:34 'bowels shut down' isopropyl alcohol Allergy Severe RASH Verified 03/08/20 14:34 propofol Allergy Severe Coma and Verified 03/08/20 14:34 'bowels shut down' adhesive Allergy Intermediate RASH Verified 03/08/20 14:34 heparin Allergy Intermediate Bleed out Verified 03/08/20 14:34 cat dander Allergy Mild WATERY EYES Verified 03/08/20 14:34 zolpidem [From Ambien] AdvReac Intermediate Sensation Verified 03/08/20 14:34 of skin cawling and jittery Past Med/Surg History Medical History Anemia due to chronic kidney disease Bicuspid aortic valve HX REPLACED 2007 Cardiomyopathy Central retinal artery occlusion of left eye age 38 Chronic kidney disease, stage 4 (severe) baseline creatinine 2.5 Chronic systolic CHF (congestive heart failure) EF 40%; nonischemic. Follows with Dr Michoacano Simental, [facility]. 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 Internal bleeding hemorrhoids Paroxysmal atrial flutter along with atrial tachycardia Peripheral neuropathy Psoas hematoma, left, secondary to anticoagulant therapy Pulmonary HTN moderate/severe. On chronic revatio. Surgical History H/O aortic valve repair 1968, 1981, 2007 H/O heart surgery mechanical aortic valve and arch repair ([facility]) 2007, [facility] History of anesthesia reaction SEE ALLERGIES LAST HEART CATH/WAS AWAKE DURING ENTIRE PROCEDURE LAST COLONOSCOPY-WOKE UP IN MIDDLE OF PROCEDURE History of aortic valve replacement 25 millimeter [employer] valve placed in 2007, [facility]. History of cardiac cath (TOTAL 5 OR 6) LAST ONE AUGUST 2018 History of colonoscopy History of herniorrhaphy 2010 History of tooth extraction Family History Grandmother , paternal Heart disease Uncle Heart disease Mother No problems noted. Father No problems noted. Other Asthma Diabetes Emphysema, unspecified Hypertension Lung disease Denies family history of Cancer Social History Smoking Status: Never smoker packs per day: 1; Years Smoked: 25; Number of Years Since Quit: 6; Second Hand Exposure: No; Hx Alcohol Use: No (quit 1-2 years ago; heavy in the past. 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 and A total of 10 systems reviewed and were otherwise negative Physical Exam Vital Signs Vital Signs - 24 hr 05/23/20 16:47 05/23/20 17:00 05/23/20 17:02 Temperature 36.8 C Temperature Source Oral Pulse Rate 96 H 98 H 92 H Pulse Rate [Apical] Pulse Rate from SpO2 Sensor 99 H 95 H Pulse Rhythm [Apical] Pulse Strength [Apical] Respiratory Rate 18 19 19 Respiratory Effort / Characteristics Respiratory Depth Respiratory Pattern Blood Pressure 114/73 113/81 Blood Pressure [Left Arm] Blood Pressure Mean 86 95 Blood Pressure Mean [Left Arm] Blood Pressure Position [Left Arm] Pulse Oximetry 100 100 100 Oxygen Delivery Method Room Air Sepsis Recent Fever Within 48 Hours No Sepsis New/Unexplained Change in Mental Status No Sepsis Action Taken by Nursing No Action Required 05/23/20 17:03 05/23/20 17:10 05/23/20 17:20 Temperature Temperature Source Pulse Rate 92 H 87 Pulse Rate [Apical] 90 Pulse Rate from SpO2 Sensor 90 96 H Pulse Rhythm [Apical] Regular Pulse Strength [Apical] Normal Respiratory Rate 18 19 19 Respiratory Effort / Characteristics Non-Labored Spontaneous Respiratory Depth Normal Respiratory Pattern Regular Blood Pressure Blood Pressure [Left Arm] 113/81 Blood Pressure Mean Blood Pressure Mean [Left Arm] 91 Blood Pressure Position [Left Arm] Lying Pulse Oximetry 98 100 100 Oxygen Delivery Method Room Air Sepsis Recent Fever Within 48 Hours Sepsis New/Unexplained Change in Mental Status Sepsis Action Taken by Nursing 05/23/20 17:30 05/23/20 17:31 05/23/20 17:40 Temperature Temperature Source Pulse Rate 89 95 H 97 H Pulse Rate [Apical] Pulse Rate from SpO2 Sensor 94 H 93 H 98 H Pulse Rhythm [Apical] Pulse Strength [Apical] Respiratory Rate 22 Respiratory Effort / Characteristics Respiratory Depth Respiratory Pattern Blood Pressure 122/84 Blood Pressure [Left Arm] Blood Pressure Mean 89 Blood Pressure Mean [Left Arm] Blood Pressure Position [Left Arm] Pulse Oximetry 99 99 100 Oxygen Delivery Method Sepsis Recent Fever Within 48 Hours Sepsis New/Unexplained Change in Mental Status Sepsis Action Taken by Nursing 05/23/20 17:50 05/23/20 18:00 05/23/20 19:00 Temperature Temperature Source Pulse Rate 97 H 101 H Pulse Rate [Apical] 110 H Pulse Rate from SpO2 Sensor 100 H 102 H Pulse Rhythm [Apical] Pulse Strength [Apical] Respiratory Rate 24 29 H 16 Respiratory Effort / Characteristics Respiratory Depth Normal Respiratory Pattern Blood Pressure 128/86 Blood Pressure [Left Arm] 125/90 Blood Pressure Mean 89 Blood Pressure Mean [Left Arm] 101 Blood Pressure Position [Left Arm] Lying Pulse Oximetry 99 99 Oxygen Delivery Method Room Air Sepsis Recent Fever Within 48 Hours Sepsis New/Unexplained Change in Mental Status Sepsis Action Taken by Nursing 05/23/20 20:32 Temperature Temperature Source Pulse Rate Pulse Rate [Apical] 94 H Pulse Rate from SpO2 Sensor Pulse Rhythm [Apical] Pulse Strength [Apical] Respiratory Rate 16 Respiratory Effort / Characteristics Respiratory Depth Respiratory Pattern Blood Pressure Blood Pressure [Left Arm] 127/90 Blood Pressure Mean Blood Pressure Mean [Left Arm] 102 Blood Pressure Position [Left Arm] Lying Pulse Oximetry 95 Oxygen Delivery Method Room Air Sepsis Recent Fever Within 48 Hours Sepsis New/Unexplained Change in Mental Status Sepsis Action Taken by Nursing Constitutional: Vital signs reviewed. Eyes: Pupils are equal round reactive to light. Conjunctiva are noninjected. ENT: Pharynx is clear without erythema or exudate. Mucous membranes are moist. Neck supple without meningeal signs. Respiratory: Clear to auscultation bilaterally. Breath sounds are equal abdiaziz aterally. Cardiovascular: Irregularly irregular rhythm. Normal rate. Audible mechanical valve. GI: Soft, nondistended and nontender. Bowel sounds are present. Musculoskeletal: No peripheral edema. No lower extremity tenderness. Integumentary: No cyanosis. or jaundice. Neurological: The patient is awake and alert. No focal deficits. Psychiatric: Normal affect. Not anxious appearing. Course Administered Medications Discontinued Medications Metoprolol Tartrate (Metoprolol Tartrate 1 Mg/Ml Vial) 2.5 mg IV NOW STA Stop: 05/23/20 19:57 Last Admin: 05/23/20 20:26 Dose: 2.5 mg Documented by: [id number] Medical Decision Making Differential Diagnosis Unstable angina, RI, anxiety, GERD, pulmonary hypertension Medical Records Attestation: I reviewed the patient's medical records. The patient was admitted in February for hemorrhoidal bleed while on anticoagulation. He was seen by cardiology in July of this year and noted to have had a cardiac catheterization in August 2018 which showed no evidence of coronary artery disease. Home Medications Current Medication List: was personally reviewed by me Laboratory Data Attestation: I reviewed the patient's lab results. Result diagrams: 05/23/20 17:00 05/23/20 17:00 Lab Results 05/23/20 05/23/20 05/23/20 Range/Units 17:00 17:00 17:00 WBC 1.15 L (4.8-10.8) K/uL RBC 4.03 L (4.7-6.1) M/uL Hgb 10.7 L (14.0-18.0) g/dL Hct 33.5 L (42-52) % MCV 83.1 (80-100) fL MCH 26.6 (25-34) pg MCHC 31.9 L (32-36) g/dL RDW Std Deviation 58.5 H (36.4-46.3) fL RDW Coeff of Tricia 18.9 H (11.5-14.5) % Plt Count 89 L (130-400) K/uL MPV 10.2 (7.4-10.4) fL Immature Gran % (Auto) 0.0 % Neut % (Auto) 53.9 % Lymph % (Auto) 37.4 % Story % (Auto) 6.1 % Eos % (Auto) 1.7 % Baso % (Auto) 0.9 % Neut # (Auto) 0.62 L* (1.4-6.5) K/uL Lymph # (Auto) 0.43 L (1.2-3.4) K/uL Story # (Auto) 0.07 L (0.11-0.59) K/uL Eos # (Auto) 0.02 (0-0.5) K/uL Baso # (Auto) 0.01 (0-0.2) K/uL Immature Gran # (Auto) 0.00 (0.00-0.02) K/uL Platelet Estimate Decreased L (Normal) Giant Platelets 1+ Ovalocytes 1+ PT 23.3 H (9.0-12.0) Seconds INR 2.3 H (0.9-1.1) APTT 34.1 H (21.0-31.0) Seconds PTT Ratio 1.2 Sodium 136 (136-145) mmol/L Potassium 4.6 (3.5-5.1) mmol/L Chloride 108 H (98-107) mmol/L Carbon Dioxide 22 (21-32) mmol/L Anion Gap 6.0 (3-11) BUN 48 H (7-18) mg/dl Creatinine 2.56 H (0.6-1.4) mg/dl Est Cr Clr Drug Dosing 27.2 ml/min Est GFR ( Amer) 32.0 Est GFR (Non-Af Amer) 27.7 BUN/Creatinine Ratio 18.8 (10-20) Glucose 151 H (70-99) mg/dl Calcium 8.7 (8.5-10.1) mg/dl Total Bilirubin 0.7 (0.2-1) mg/dl AST 15 (15-37) U/L ALT 17 (12-78) U/L Alkaline Phosphatase 86 (45-117) U/L Troponin I < 0.015 (0-0.045) ng/ml Total Protein 6.7 (6.4-8.2) gm/dl Albumin 3.0 L (3.4-5.0) gm/dl Globulin 3.7 (2.5-4.0) gm/dl Albumin/Globulin Ratio 0.8 L (0.9-2) SARS-CoV-2 Ag (Rapid) (Negative) 05/23/20 05/23/20 Range/Units 18:40 Unknown WBC (4.8-10.8) K/uL RBC (4.7-6.1) M/uL Hgb (14.0-18.0) g/dL Hct (42-52) % MCV (80-100) fL MCH (25-34) pg MCHC (32-36) g/dL RDW Std Deviation (36.4-46.3) fL RDW Coeff of Tricia (11.5-14.5) % Plt Count (130-400) K/uL MPV (7.4-10.4) fL Immature Gran % (Auto) % Neut % (Auto) % Lymph % (Auto) % Story % (Auto) % Eos % (Auto) % Baso % (Auto) % Neut # (Auto) (1.4-6.5) K/uL Lymph # (Auto) (1.2-3.4) K/uL Story # (Auto) (0.11-0.59) K/uL Eos # (Auto) (0-0.5) K/uL Baso # (Auto) (0-0.2) K/uL Immature Gran # (Auto) (0.00-0.02) K/uL Platelet Estimate (Normal) Giant Platelets Ovalocytes PT (9.0-12.0) Seconds INR (0.9-1.1) APTT (21.0-31.0) Seconds PTT Ratio Sodium (136-145) mmol/L Potassium (3.5-5.1) mmol/L Chloride (98-107) mmol/L Carbon Dioxide (21-32) mmol/L Anion Gap (3-11) BUN (7-18) mg/dl Creatinine (0.6-1.4) mg/dl Est Cr Clr Drug Dosing ml/min Est GFR ( Amer) Est GFR (Non-Af Amer) BUN/Creatinine Ratio (10-20) Glucose (70-99) mg/dl Calcium (8.5-10.1) mg/dl Total Bilirubin (0.2-1) mg/dl AST (15-37) U/L ALT (12-78) U/L Alkaline Phosphatase (45-117) U/L Troponin I 0.020 (0-0.045) ng/ml Total Protein (6.4-8.2) gm/dl Albumin (3.4-5.0) gm/dl Globulin (2.5-4.0) gm/dl Albumin/Globulin Ratio (0.9-2) SARS-CoV-2 Ag (Rapid) Negative (Negative) Imaging Data Radiologist's Impression: XR chest 1V portable HISTORY: 50 years-old Male Chest Pain acute atypical chest pain COMPARISON: Chest radiograph 03/08/2020 TECHNIQUE: Portable AP view of the chest FINDINGS: Cardiac silhouette is enlarged. Prior median sternotomy with cardiac valvular prosthesis. Calcified plaque of the thoracic aorta. Surgical clips are again noted projecting over the right upper chest. Unchanged blunting of the costophrenic angles. No pneumothorax, large pleural effusion, overt pulmonary edema or airspace consolidation typical for pneumonia. Bones of the chest appear grossly intact. IMPRESSION: 1. Cardiomegaly without acute process. 2. Trace pleural effusions. ACT 112: Negative or not required by law. The above report was generated using voice recognition software. It may contain grammatical, syntax or spelling errors. Electronically signed by: Rickie Spain M.D. 05/23/2020 5:52 PM Dictated: 05/23/201750 Transcribed: 05/23/201750 ECG Data Attestation: I personally reviewed and interpreted this ECG as follows: Indication: + chest pain Rate (beats per minute): 101 Rhythm: + atrial fibrillation ECG ST segments: + T-wave inversions; no ST elevation ECG Findings: no PVCs Comparison ECG Date: from (March 08, 2020) Change: no significant change MDM Narrative I did evaluate the patient as noted above. The patient is presenting with chest discomfort which she has had intermittently for the past 4 to 5 years. He states today he came in because it would not go away as it usually does. He does have chronic shortness of breath due to his cardiomyopathy and pulmonary hypertension. He is currently asymptomatic. IV access was established. I did place an order for continuous cardiac monitoring. The monitor showed Atrial fibrillation with a rate of 98 bpm. I did order and personally review the patient's 12-lead EKG as described above. He has atrial fibrillation with no significant acute ischemic changes. I did order and personally reviewed the images of the patient's chest x-ray as described above. There is no acute process. He does have trace effusions and cardiomegaly. I did order and review the patient's blood work as noted in the electronic medical record. He has pancytopenia as well as neutropenia. His ANC is in the 600s. Hemoglobin is improved from his last visit at 10.7. Platelet count is 89. Chemistries demonstrate a creatinine of 2.56 consistent with his known kidney disease. Troponin is negative. I did discuss the test results with the patient. I did recommend a second troponin as his symptoms started at approximately 1 and the troponin was drawn at 5. He was agreeable. The second troponin drawn an hour and a half after the first came back slightly increased at 0.020. I did go and evaluate the patient again. He is not having any chest pain but states he is a little short of breath. His heart rate is in the 110-120s. I did treat him with Lopressor IV. It did improve. After discussion he is agreeable to hospitalization. I did discuss the case with the leather case finisher. The hospitalist was informed. Impression & Plan Atrial fibrillation with rapid ventricular response, Neutropenia, Chest pain, Pancytopenia, Chronic kidney disease Discharge Plan Visit Data Chief Complaint: Chest Pain Stated Complaint: CHEST PAIN, SOB ED Provider: Adrien Pires Discharge Problem: Atrial fibrillation with rapid ventricular response, Neutropenia, Chest pain, Pancytopenia, Chronic kidney disease Patient Disposition: Being Evaluated by Hospitalist Forms Stand Alone Forms: My [facility] Prescriptions Prescriptions: No Action albuterol sulfate [Ventolin HFA] 90 mcg/actuation HFA aerosol inhaler 2 puff inhalation QID PRN (Reason: Shortness Of Breath Or Wheezing) Qty: 18 RF: 3 melatonin 3 mg tablet 3 mg PO HS RF: 0 sildenafil (pulm.hypertension) [Revatio] 20 mg tablet 10 mg PO TID RF: 0 venlafaxine 25 mg tablet 25 mg PO BID RF: 0 warfarin 2 mg tablet 6 mg PO .7XW RF: 0 posaconazole [Noxafil] 200 mg/5 mL (40 mg/mL) suspension 400 mg PO BID RF: 0 mometasone 0.1 % Cream 1 applic TOPICAL BID PRN (Reason: Dermatitis) RF: 0 ZzzQuil 50 mg/30 mL Liquid 25 mg PO HS PRN (Reason: Sleep) RF: 0 tamsulosin 0.4 mg capsule 0.4 mg PO DAILY RF: 0 calcitriol 0.25 mcg capsule 0.25 mcg PO 3XWK RF: 0 polyethylene glycol 3350 [Miralax] 17 gram/dose Powder 17 g PO DAILY PRN (Reason: Constipation) RF: 0 Metamucil 3.4 gram/5.4 gram Powder 1 tbsp PO DAILY RF: 0 ketoconazole [Nizoral] 2 % Shampoo 1 applic TOPICAL .UD RF: 0 furosemide [Lasix] 20 mg tablet 40 mg PO BID RF: 0 metoprolol succinate [Toprol XL] 100 mg tablet extended release 24 hr 100 mg PO HS RF: 0 Referrals Referrals: Aguila Pollard MD [Primary Care Provider] - Discharge Problem: Neutropenia Qualifiers: Neutropenia type: unspecified Qualified Code(s): D70.9 - Neutropenia, unspecified Chest pain Qualifiers: Chest pain type: unspecified Qualified Code(s): R07.9 - Chest pain, unspecified Chronic kidney disease Qualifiers: Chronic kidney disease stage: unspecified stage Qualified Code(s): N18.9 - Chronic kidney disease, unspecified
[2020-05-23 17:22] LABS: Hematocrit (blood only) 33.5 % (42-52); Hemoglobin 10.7 g/dL (14.0-18.0); Mean Corpuscular Hemoglobin 26.6 pg (25-34); Mean Corpuscular Hgb Conc 31.9 g/dL (32-36); Mean Corpuscular Volume 83.1 fL (80-100); RDW Coefficient of Variation 18.9 % (11.5-14.5); RDW Standard Deviation 58.5 fL (36.4-46.3); Red Blood Count 4.03 M/uL (4.7-6.1); White Blood Count 1.15 K/uL (4.8-10.8)
[2020-05-23 17:33] LABS: INR 2.3 (0.9-1.1); Partial Thromboplastin Ratio 1.2; Partial Thromboplastin Time 34.1 Seconds (21.0-31.0); Prothrombin Time 23.3 Seconds (9.0-12.0)
[2020-05-23 17:47] LABS: Alanine Aminotransferase 17 U/L (12-78); Aspartate Aminotransferase 15 U/L (15-37); BUN Creatinine Ratio 18.8 (10-20); Blood Urea Nitrogen 48 mg/dl (7-18); Calcium 8.7 mg/dl (8.5-10.1); Carbon Dioxide 22 mmol/L (21-32); Chloride 108 mmol/L (98-107); Creatinine Clr Calc Pharmacy 27.2 ml/min; Est GFR (Non-African American) 27.7; Glucose 151 mg/dl (70-99); Potassium 4.6 mmol/L (3.5-5.1); Sodium 136 mmol/L (136-145)
[2020-05-23 17:51] LABS: Mean Platelet Volume 10.2 fL (7.4-10.4); Platelet Count 89 K/uL (130-400)
[2020-05-23 17:52] LABS: Albumin Globulin Ratio 0.8 (0.9-2); Alkaline Phosphatase 86 U/L (45-117); Bilirubin,Total 0.7 mg/dl (0.2-1); Globulin 3.7 gm/dl (2.5-4.0); Total Protein 6.7 gm/dl (6.4-8.2); Troponin I < 0.015 ng/ml (0-0.045)
--- NOTE | 2020-05-23 17:53 | XRay Report ---
XR chest 1V portable HISTORY: 50 years-old Male Chest Pain acute atypical chest pain COMPARISON: Chest radiograph 03/08/2020 TECHNIQUE: Portable AP view of the chest FINDINGS: Cardiac silhouette is enlarged. Prior median sternotomy with cardiac valvular prosthesis. Calcified p laque of the thoracic aorta. Surgical clips are again noted projecting over the right upper chest. Un changed blunting of the costophrenic angles. No pneumothorax, large pleural effusion, overt pulmonary edema or airspace consolidation typical for pneumonia. Bones of the chest appear grossly intact. IMPRESSION: 1. Cardiomegaly without acute process. 2. Trace pleural effusions. ACT 112: Negative or not required by law. The above report was generated using voice recognition software. It may contain grammatical, syntax o r spelling errors. Electronically signed by: Rickie Spain M.D. 05/23/2020 5:52 PM
[2020-05-23 18:05] LABS: Basophils # (auto) 0.01 K/uL (0-0.2); Basophils % (auto) 0.9 %; Eosinophils # (auto) 0.02 K/uL (0-0.5); Eosinophils % (auto) 1.7 %; Giant Platelets 1+; Lymphocytes # (auto) 0.43 K/uL (1.2-3.4); Lymphocytes % (auto) 37.4 %; Monocytes # (auto) 0.07 K/uL (0.11-0.59); Monocytes % (auto) 6.1 %; Neutrophils # (auto) 0.62 K/uL (1.4-6.5); Neutrophils % (auto) 53.9 %; Ovalocytes 1+; Platelet Estimate Decreased (Normal)
[2020-05-23] MEDS ORDERED: METOPROLOL TARTRATE 1 MG/ML VIAL IV STA (19:56)
--- NOTE | 2020-05-23 20:39 | History & Physical Report ---
Date of Service May 23, 2020 Assessment & Plan (1) Atrial fibrillation with rapid ventricular response: Patient is a 50-year-old male with a past medical history of chronic kidney disease stage IV baseline creatinine around 2.5, iron deficiency anemia, pulmonary hypertension, chronic systolic CHF, congenital heart disease bicuspid aorta, COPD, hemorrhoids, Status post aortic valve replacement with a chronic fungal infection currently treated with posaconazole 400 mg p.o. twice daily, anxiety and depression, and cardiomyopathy presents this evening with complaints of chest pain #Chest pain likely secondary to atrial fibrillation with rapid ventricular response in a patient with a past medical history of congenital bicuspid aorta who is status post aortic valve replacement complicated by a chronic fungal infection and chronic cardiomyopathy and chronic CHF and chronic pancyto penia/neutrophilia Patient has a complex medical history as indicated above and does have a number of concerning reasons that could be associated with his chest pain. Fortunately most of these have been ruled out, patient's vital signs are stable, he is currently afebrile, on presentation he had a troponin of 0.02, this is currently being trended. ECG was consistent with atrial fibrillation, intermittently tachycardic although I believe the majority of his tachycardia is related to anxiety about the emergency department. The patient has a longstanding history of cardiac pathology beginning with a congenital bicuspid aorta and now consisting of the complications associated with aortic valve replacement. He has a longstanding history of chronic fungemia related to this prosthetic device. He he is currently on posaconazole 400 mg p.o. twice daily for this fungal infection. He is also chronically anticoagulated with warfarin INR was acceptable on presentation patient will be admitted for evaluation and management of his atrial fibrillation with RVR. It is thought that his chronic pancytopenia/neutrophilia is secondary to his chronic fungal infection. Of note patient has had multiple admissions for similar presentation, they have been deemed his anxiety in the past. -Most recent echo was October 2018 ejection fraction was 40 to 45% at that time -Given IV metoprolol in the ED with adequate response, will monitor heart rate for now -Continue home metoprolol 100 mg p.o. at bedtime -Continue 40 mg p.o. twice daily Lasix -Trend INR daily -Continue warfarin 6 mg -Daily BMP -Daily CBC #Pulmonary hypertension Well controlled at present, continue home meds, patient is currently asymptomatic -Furosemide 40 mg twice daily -Sildenafil 10 mg 3 times daily #Chronic kidney disease stage IV with chronic anemia and associated pancytopenia Unclear etiology for his CKD, was on amphotericin for a period of time which can cause a transient change in renal function however he does have multiple other risk factors including smoking, more cardiomyopathy, pulmonary hypertension, chronic diuretic use, cardiac surgery, and repeated fungemia. Followed by nephrology as an outpatient, has had hemodialysis in the past. Electrolytes stable at present, creatinine appears to be at baseline. -Avoid nephrotoxic medications -Trend daily BMP -Consider nephrology consult #COPD Hold home albuterol for now, given its beta adrenergic stimulation, will provide as needed Xopenex -As needed Xopenex -As needed O2 #Anemia Secondary to chronic kidney disease -Trend daily CBC #BPH -Continue tamsulosin 0.4 mg #Anxiety Patient with a history of anxiety currently treated with venlafaxine, patient has had numerous presentations similar to his current presentation. In the past they have been deemed secondary to anxiety. It is certainly possible his current presentation could be secondary to anxiety. To that extent I strongly recommend ensuring this patient has adequate counseling on discharge. -Continue venlafaxine 25 mg -On discharge recommend follow-up with counselor -Case management consulted to assist FENa: Heart healthy diet Code Status: Full code DVT PPX: Coumadin PT/OT: Not indicated Dispo: MedSurg with telemetry Clarence Christiansen MD PGY 2, FCM This chart was completed utilizing [employer] voice recognition software. Grammatical errors, random word insertions, pronoun errors, and in complete sentences are an occasional consequence of the system. Any questions or concerns about the content, text, or information contained within the body of this dictation should be addressed directly to the physician for clarification. (2) Neutropenia: (3) Chest pain: (4) Pancytopenia: (5) Chronic kidney disease: (6) DVT prophylaxis: (7) Iron deficiency anemia: (8) Pulmonary HTN: (9) Chronic systolic CHF (congestive heart failure): (10) Congenital heart disease: (11) COPD (chronic obstructive pulmonary disease): (12) History of mechanical aortic valve replacement: (13) Anemia due to stage 4 chronic kidney disease: (14) Chronic kidney disease, stage 4 (severe): (15) History of aortic valve replacement: History of Present Illness Patient is a 50-year-old male with a past medical history of chronic kidney disease stage IV baseline creatinine around 2.5, iron deficiency anemia, pulmonary hypertension, chronic systolic CHF, congenital heart disease bicuspid aorta, COPD, hemorrhoids, Status post aortic valve replacement with a chronic fungal infection currently treated with posaconazole 40 mg p.o. twice daily, anxiety and depression, and cardiomyopathy presents this evening with complaints of chest pain. The patient describes experiencing an episode of chest pain that started at 1 PM today lasting approximately 4 hours and subsequently resolving. He described the pain as a burning sensation throughout his chest and lungs with a little bit of shortness of breath. He does not think this shortness of breath was related to his other chronic conditions. He made the decision to come to the emergency department because his chest pain did not appear to be resolving and he was concerned. Since that time the patient's pain has resolved. He has had similar episodes of this in the past, and is previously been evaluated for these, with the conclusion being they are related to anxiety. He states these episodes recur approximately every 2 months or so. Per review of records he had a heart catheterization 2 years ago indicating no blockages, and is chronically anticoagulated with Coumadin for his aortic valve replacement. Upon arrival to the emergency department the patient denied any recent history of constitutional symptoms including fevers, chills, nausea, vomiting, diarrhea, changes in mentation, or weight gain or weight loss. Routine labs were obtained demonstrating pancytopenia which is not new, neutropenia which is not new, INR of 2.3, Chem-7 within normal limits with the exception of creatinine which was 2.56 this appears to be around his baseline of 2.5 glucose was 151 albumin low at 3 Covid testing pending. Chest x-ray demonstrating cardiomegaly without acute process, and trace pleural effusions. The patient was reevaluated by the emergency room physician and he describes shortness of breath, an EKG demonstrated A. fib with a rate of 96, given the symptoms and the patient's presentation he will be admitted for further evaluation and management. Primary Care Provider: Aguila Pollard MD Allergies Allergy/AdvReac Type Severity Reaction Status Date / Time amphotericin B Allergy Severe severe Verified 03/08/20 14:34 rigors, chills/fever/sweats-hypothalmus irregularity chlorhexidine Allergy Severe RASH Verified 03/08/20 14:34 edetic acid Allergy Severe Coma and Verified 03/08/20 14:34 'bowels shut down' egg Allergy Severe coma and Verified 03/08/20 14:34 "bowels shut down" glycerin Allergy Severe Coma and Verified 03/08/20 14:34 'bowels shut down' isopropyl alcohol Allergy Severe RASH Verified 03/08/20 14:34 propofol Allergy Severe Coma and Verified 03/08/20 14:34 'bowels shut down' adhesive Allergy Intermediate RASH Verified 03/08/20 14:34 heparin Allergy Intermediate Bleed out Verified 03/08/20 14:34 cat dander Allergy Mild WATERY EYES Verified 03/08/20 14:34 zolpidem [From Ambien] AdvReac Intermediate Sensation Verified 03/08/20 14:34 of skin cawling and jittery Home Medications Medication Instructions Recorded Confirmed Type furosemide [Lasix] 40 mg PO BID 10/22/18 05/23/20 History metoprolol succinate [Toprol XL] 100 mg PO HS 06/09/19 05/23/20 History ZzzQuil 25 mg PO HS PRN 01/25/20 05/23/20 History mometasone 1 applic TOPICAL BID PRN 01/25/20 05/23/20 History posaconazole [Noxafil] 400 mg PO BID 01/25/20 05/23/20 History warfarin 6 mg PO .7XW 01/25/20 05/23/20 History albuterol sulfate 90 mcg/actuation 2 puff INHALATION QID PRN #18 g 03/06/20 05/23/20 Rx aerosol inhaler melatonin 3 mg tablet 3 mg PO HS 03/06/20 05/23/20 History sildenafil (pulm.hypertension) 20 10 mg PO TID tab 03/06/20 05/23/20 History mg tablet venlafaxine 25 mg tablet 25 mg PO BID tab 03/06/20 05/23/20 History Metamucil 1 tbsp PO DAILY 05/23/20 05/23/20 History calcitriol 0.25 mcg PO 3XWK 05/23/20 05/23/20 History ketoconazole 1 applic TOPICAL .UD 05/23/20 05/23/20 History polyethylene glycol 3350 [Miralax] 17 g PO DAILY PRN 05/23/20 05/23/20 History tamsulosin 0.4 mg PO DAILY 05/23/20 05/23/20 History digoxin [Digitek] 0.125 mg PO MoTh@0900 #30 tab 05/24/20 Rx Past Med/Surg History Medical History Anemia due to chronic kidney disease Bicuspid aortic valve HX REPLACED 2007 Cardiomyopathy Central retinal artery occlusion of left eye age 38 Chronic kidney disease, stage 4 (severe) baseline creatinine 2.5 Chronic systolic CHF (congestive heart failure) EF 40%; nonischemic. Follows with Dr Michoacano Simental, [facility]. 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 Internal bleeding hemorrhoids Paroxysmal atrial flutter along with atrial tachycardia Peripheral neuropathy Psoas hematoma, left, secondary to anticoagulant therapy Pulmonary HTN moderate/severe. On chronic revatio. Surgical History H/O aortic valve repair 1968, 1981, 2007 H/O heart surgery mechanical aortic valve and arch repair ([facility]) 2007, [facility] History of anesthesia reaction SEE ALLERGIES LAST HEART CATH/WAS AWAKE DURING ENTIRE PROCEDURE LAST COLONOSCOPY-WOKE UP IN MIDDLE OF PROCEDURE History of aortic valve replacement 25 millimeter [employer] valve placed in 2007, [facility]. History of cardiac cath (TOTAL 5 OR 6) LAST ONE AUGUST 2018 History of colonoscopy History of herniorrhaphy 2010 History of tooth extraction Family History Grandmother , paternal Heart disease Uncle Heart disease Mother No problems noted. Father No problems noted. Other Asthma Diabetes Emphysema, unspecified Hypertension Lung disease Denies family history of Cancer Social History Smoking Status: Former smoker packs per day: 1; Years Smoked: 25; Number of Years Since Quit: 6; Second Hand Exposure: No; Hx Alcohol Use: No Hx Substance Use: No Preferred Language: French Communication Ability: Effective Payroll And Benefits Coordinator Required: No Beliefs That Will Affect Care: None marital status: Single Current Living Situation: Alone Current Living Situation Comment: lives in [place] current occupational status: disabled current occupation: Disabled How many Children do You have: 0 Feels Safe at Home: Yes Assistive Devices: Glasses Review of Systems Review of Systems: All systems reviewed & are unremarkable except as noted in HPI & below Physical Exam Physical Exam: General: In no acute distress HEENT: Normocephalic atraumatic Neck: Trachea midline, normal to visual inspection Cardiac: Irregular rate irregular rhythm, normal S1, normal S2, systolic ejection murmur present, negative calf tenderness, negative pedal edema Respiratory: Coarse breath sounds bilaterally, otherwise clear to auscultation bilaterally with symmetrical chest expansion no increased work of breathing GI: Soft, nontender, nondistended, bowel sounds present in all 4 quads MSK: Moves all extremities Skin: Bruising Neuro: Alert and oriented x4 Psych: Calm and cooperative Results & Data Results & Data ([facility]) Vital Signs (Past 12 Hours) Vital Signs Temp Pulse Pulse Resp BP BP Pulse Ox 05/23/20 19:00 110 H 16 125/90 05/23/20 18:00 101 H 29 H 128/86 99 05/23/20 17:50 97 H 24 99 05/23/20 17:40 97 H 22 100 05/23/20 17:31 95 H 99 05/23/20 17:30 89 122/84 99 05/23/20 17:20 87 19 100 05/23/20 17:10 92 H 19 100 05/23/20 17:03 90 18 113/81 98 05/23/20 17:02 92 H 19 100 05/23/20 17:00 98 H 19 113/81 100 05/23/20 16:47 36.8 C 96 H 18 114/73 100 Laboratory Results 05/23/20 05/23/20 05/23/20 Range/Units 18:40 17:00 17:00 WBC (4.8-10.8) K/uL RBC (4.7-6.1) M/uL Hgb (14.0-18.0) g/dL Hct (42-52) % MCV (80-100) fL MCH (25-34) pg MCHC (32-36) g/dL RDW Std Deviation (36.4-46.3) fL RDW Coeff of Tricia (11.5-14.5) % Plt Count (130-400) K/uL MPV (7.4-10.4) fL Immature Gran % (Auto) % Neut % (Auto) % Lymph % (Auto) % Sauk % (Auto) % Eos % (Auto) % Baso % (Auto) % Neut # (Auto) (1.4-6.5) K/uL Lymph # (Auto) (1.2-3.4) K/uL Sauk # (Auto) (0.11-0.59) K/uL Eos # (Auto) (0-0.5) K/uL Baso # (Auto) (0-0.2) K/uL Immature Gran # (Auto) (0.00-0.02) K/uL Platelet Estimate (Normal) Giant Platelets Ovalocytes PT 23.3 H (9.0-12.0) Seconds INR 2.3 H (0.9-1.1) APTT 34.1 H (21.0-31.0) Seconds PTT Ratio 1.2 Sodium 136 (136-145) mmol/L Potassium 4.6 (3.5-5.1) mmol/L Chloride 108 H (98-107) mmol/L Carbon Dioxide 22 (21-32) mmol/L Anion Gap 6.0 (3-11) BUN 48 H (7-18) mg/dl Creatinine 2.56 H (0.6-1.4) mg/dl Est Cr Clr Drug Dosing 27.2 ml/min Est GFR ( Amer) 32.0 Est GFR (Non-Af Amer) 27.7 BUN/Creatinine Ratio 18.8 (10-20) Glucose 151 H (70-99) mg/dl Calcium 8.7 (8.5-10.1) mg/dl Total Bilirubin 0.7 (0.2-1) mg/dl AST 15 (15-37) U/L ALT 17 (12-78) U/L Alkaline Phosphatase 86 (45-117) U/L Troponin I 0.020 < 0.015 (0-0.045) ng/ml Total Protein 6.7 (6.4-8.2) gm/dl Albumin 3.0 L (3.4-5.0) gm/dl Globulin 3.7 (2.5-4.0) gm/dl Albumin/Globulin Ratio 0.8 L (0.9-2) 05/23/20 Range/Units 17:00 WBC 1.15 L (4.8-10.8) K/uL RBC 4.03 L (4.7-6.1) M/uL Hgb 10.7 L (14.0-18.0) g/dL Hct 33.5 L (42-52) % MCV 83.1 (80-100) fL MCH 26.6 (25-34) pg MCHC 31.9 L (32-36) g/dL RDW Std Deviation 58.5 H (36.4-46.3) fL RDW Coeff of Tricia 18.9 H (11.5-14.5) % Plt Count 89 L (130-400) K/uL MPV 10.2 (7.4-10.4) fL Immature Gran % (Auto) 0.0 % Neut % (Auto) 53.9 % Lymph % (Auto) 37.4 % Sauk % (Auto) 6.1 % Eos % (Auto) 1.7 % Baso % (Auto) 0.9 % Neut # (Auto) 0.62 L* (1.4-6.5) K/uL Lymph # (Auto) 0.43 L (1.2-3.4) K/uL Sauk # (Auto) 0.07 L (0.11-0.59) K/uL Eos # (Auto) 0.02 (0-0.5) K/uL Baso # (Auto) 0.01 (0-0.2) K/uL Immature Gran # (Auto) 0.00 (0.00-0.02) K/uL Platelet Estimate Decreased L (Normal) Giant Platelets 1+ Ovalocytes 1+ PT (9.0-12.0) Seconds INR (0.9-1.1) APTT (21.0-31.0) Seconds PTT Ratio Sodium (136-145) mmol/L Potassium (3.5-5.1) mmol/L Chloride (98-107) mmol/L Carbon Dioxide (21-32) mmol/L Anion Gap (3-11) BUN (7-18) mg/dl Creatinine (0.6-1.4) mg/dl Est Cr Clr Drug Dosing ml/min Est GFR ( Amer) Est GFR (Non-Af Amer) BUN/Creatinine Ratio (10-20) Glucose (70-99) mg/dl Calcium (8.5-10.1) mg/dl Total Bilirubin (0.2-1) mg/dl AST (15-37) U/L ALT (12-78) U/L Alkaline Phosphatase (45-117) U/L Troponin I (0-0.045) ng/ml Total Protein (6.4-8.2) gm/dl Albumin (3.4-5.0) gm/dl Globulin (2.5-4.0) gm/dl Albumin/Globulin Ratio (0.9-2) Code Status & VTE Plan Code Status Full Supervising Physician Co-Signing Physician Notes Attending addendum: I have physically seen this patient, have supervised the medical residents activities, and agree with the H&P unless as otherwise noted. Assessment and Plan: Atrial fibrillation with RVR/hypertension/cardiomyopathy/status post AVR- Continue metoprolol succinate 100 mg at bedtime, Lasix 40 mg p.o. twice daily, warfarin 6 mg daily. Improved control after receiving IV Lopressor Consult cardiology Pulmonary hypertension- Continue furosemide and sildenafil Chronic kidney disease stage IV/chronic anemia/pancytopenia- Overall stable. Repeat laboratories in a.m. COPD- changing albuterol to Xopenex Remaining orders and notations as noted Resident Activity Tracking Resident Involvement: Resident Care Provided Care Provided: Adult Hospital Medicine (1) Chronic kidney disease Chronic kidney disease stage: unspecified stage Qualified Code(s): N18.9 - Chronic kidney disease, unspecified (2) Neutropenia Neutropenia type: unspecified Qualified Code(s): D70.9 - Neutropenia, unspecified (3) Iron deficiency anemia Iron deficiency anemia type: chronic blood loss Qualified Code(s): D50.0 - Iron deficiency anemia secondary to blood loss (chronic) (4) COPD (chronic obstructive pulmonary disease) COPD type: unspecified COPD Qualified Code(s): J44.9 - Chronic obstructive pulmonary disease, unspecified (5) Chest pain Chest pain type: unspecified Qualified Code(s): R07.9 - Chest pain, unspecified
[2020-05-23] MEDS ORDERED: WARFARIN SOD 6 MG TAB PO SCH (23:15)
[2020-05-23] MEDS ORDERED: ACETAMINOPHEN 325 MG TAB PO PRN (23:15)
[2020-05-23] MEDS ORDERED: MOMETASONE FUROATE 0.1% CR 15 GM TUBE EXT PRN (23:15)
[2020-05-23] MEDS ORDERED: ONDANSETRON INJ 2 MG/ML 2 ML VIAL IV PRN (23:15)
[2020-05-23] MEDS ORDERED: LEVALBUTEROL TARTRATE 15 GM HFA.AER.AD INH PRN (23:15)
[2020-05-23] MEDS ORDERED: NON-FORMULARY MEDICATION (Ketoconazole 2 % Shampoo) EXT SCH (23:15)
[2020-05-23] MEDS ORDERED: diphenhydrAMINE Capsule 25 MG CAP PO PRN (23:38)
[2020-05-24] MEDS: FUROSEMIDE 40 MG TAB PO SCH ×2 (01:06→09:36)
[2020-05-24] MEDS: VENLAFAXINE HCL 50 MG TAB PO SCH ×2 (01:08→09:37)
[2020-05-24] MEDS: SILDENAFIL CITRATE 20 MG TABLET PO SCH ×3 (04:35→14:11)
[2020-05-24] MEDS ORDERED: METOPROLOL SUCC 50MG EXT REL TAB PO STA (04:47)
[2020-05-24 06:20] LABS: Mean Corpuscular Hgb Conc 31.9 g/dL (32-36)
[2020-05-24 06:43] LABS: Hematocrit (blood only) 32.9 % (42-52); Hemoglobin 10.5 g/dL (14.0-18.0); Mean Corpuscular Hemoglobin 26.6 pg (25-34); Mean Corpuscular Volume 83.5 fL (80-100); RDW Coefficient of Variation 18.9 % (11.5-14.5); RDW Standard Deviation 58.7 fL (36.4-46.3); Red Blood Count 3.94 M/uL (4.7-6.1); White Blood Count 1.33 K/uL (4.8-10.8)
[2020-05-24 06:55] LABS: Albumin Level 2.8 gm/dl (3.4-5.0); BUN Creatinine Ratio 19.6 (10-20); Calcium 7.8 mg/dl (8.5-10.1); Creatinine Clr Calc Pharmacy 28.9 ml/min; Est GFR (African American) 34.5; Est GFR (Non-African American) 29.7; Potassium 4.5 mmol/L (3.5-5.1)
[2020-05-24 06:57] LABS: Albumin Globulin Ratio 0.8 (0.9-2); Bilirubin,Total 0.6 mg/dl (0.2-1); Globulin 3.5 gm/dl (2.5-4.0); Mean Platelet Volume 10.2 fL (7.4-10.4); Platelet Count 93 K/uL (130-400); Total Protein 6.3 gm/dl (6.4-8.2)
[2020-05-24 07:35] LABS: Basophils # (auto) 0.01 K/uL (0-0.2); Basophils % (auto) 0.8 %; Eosinophils # (auto) 0.02 K/uL (0-0.5); Eosinophils % (auto) 1.5 %; Giant Platelets 1+; Lymphocytes # (auto) 0.55 K/uL (1.2-3.4); Lymphocytes % (auto) 41.4 %; Monocytes # (auto) 0.16 K/uL (0.11-0.59); Neutrophils # (auto) 0.59 K/uL (1.4-6.5); Neutrophils % (auto) 44.3 %; Polychromasia 1+
[2020-05-24] MEDS ORDERED: CALCITRIOL 0.25 MCG CAPSULE PO SCH (09:00)
[2020-05-24] MEDS ORDERED: TAMSULOSIN HCL 0.4 MG CAP PO SCH (09:00)
[2020-05-24] MEDS ORDERED: PSYLLIUM 58.6% POWDER PACKET PO SCH (09:00)
[2020-05-24] MEDS ORDERED: POLYETHYLENE (MIRALAX) 17 GM PACK PO SCH (09:00)
--- NOTE | 2020-05-24 12:51 | Cardiology Progress Note ---
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 Digoxin 0.25 x1 now and d/c home Digoxin 0.125 mg Wednesday/ only Dig level in 2 weeks Amio poor option given his other medication toxicity Will let [facility] [place] [facility] know as well May 24, 2020 Assessment & Plan Admission and Anticipated Discharge Date Admission Date: May 23, 2020 Results & Data ([facility]) Vital Signs (Past 12 Hours) Vital Signs Temp Pulse Pulse Pulse Resp BP Pulse Ox 05/24/20 11:34 37.1 C 101 H 16 97/63 L 96 05/24/20 07:55 37.1 C 89 16 102/67 97 05/24/20 04:52 139/84 05/24/20 04:00 36.8 C 105 H 24 134/84 97 05/24/20 02:47 36.9 C 87 20 104/73 98 05/24/20 01:00 116 H
--- NOTE | 2020-05-24 12:52 | Hospitalist Progress Note ---
Date of Service May 24, 2020 Assessment & Plan (1) Atrial fibrillation with rapid ventricular response: He appears to have atrial for flutter. Cardiology consultation pending. He is anticoagulated with Coumadin and is therapeutic. Continue telemetry and medical management for now Present on Admission?: Yes (2) Chest pain: Associated with rapid heart rate. Slight troponin bump. Will continue to trend troponins. Await cardiology evaluation Present on Admission?: Yes (3) Chronic systolic CHF (congestive heart failure): Known ejection fraction of 40%. No overt exacerbation at this time. Monitor intake and output Present on Admission?: Yes (4) Fungemia: The patient has a mechanical aortic valve with chronic fungal infection and he is currently on oral antifungal medication. Will follow. (5) Chronic kidney disease: Known stage IV chronic kidney disease. He has had hemodialysis in the past. Current creatinine 2.4. Will follow (6) Pulmonary HTN: Known history of pulmonary hypertension. Currently on sildenafil treatment. (7) COPD (chronic obstructive pulmonary disease): Stable. Continue current medical management Admission and Anticipated Discharge Date Admission Date: May 23, 2020 Subjective Somnolent but easily arousable, pleasant, conversant. Chest discomfort has resolved. Troponin bumped up slightly to 0.06. Creatinine stable at 2.4. Admission EKG reveals atrial flutter with rapid rate. He usually sees [facility], Dr. Ríos for again. Cardiology consultation requested. INR therapeutic at 2.0. Review of Systems Review of Systems: Constitutional-no fever or chills ENT-no blurred vision, no double vision, no epistaxis, no sore throat Respiratory-no cough, no wheezing, no shortness of breath Cardiac-chest discomfort, palpitations GI-no nausea, vomiting, diarrhea, melena, hematochezia -no urinary retention, no urinary incontinence, no dysuria, no hematuria Musculoskeletal-no joint pain, no muscle tenderness Skin-no bruising, no rashes, no pruritus Neuro-no isolated weakness, no paresthesia, no weakness Psych-no depression, no anxiety Physical Exam Physical Exam: General-alert and oriented x3, no fevers, no chills HEENT-head atraumatic and normocephalic, TMs intact bilaterally, pupils equal and reactive to light, extraocular muscles intact Neck-no lymphadenopathy or thyromegaly, trachea midline Chest-clear to auscultation percussion. No rales wheezing or rhonchi Cardiac-irregular rhythm, normal rate. Mechanical aortic valve click. Abdomen-normal bowel sounds, nontender, no hepatosplenomegaly Extremities-no cyanosis, clubbing, or edema Neuro-cranial nerves II through XII intact, motor and sensory function within normal limits, strength symmetrical 5/5, no focal deficits Psych-normal affect, normal mood Results & Data Results & Data ([facility]) Vital Signs (Past 12 Hours) Vital Signs Temp Pulse Pulse Pulse Resp BP Pulse Ox 05/24/20 11:34 37.1 C 101 H 16 97/63 L 96 05/24/20 07:55 37.1 C 89 16 102/67 97 05/24/20 04:52 139/84 05/24/20 04:00 36.8 C 105 H 24 134/84 97 05/24/20 02:47 36.9 C 87 20 104/73 98 05/24/20 01:00 116 H Laboratory Results 05/24/20 05:31 05/24/20 05:31 PG Care Time/CCT Total # of Minutes Spent Total Time Spent with Patient: Total time spent is greater than 50% in coordination of care (as documented) at patient's floor/unit and/or counseling patient: Coding Level of Care Code 28877 Subseq Hosp Care Lvl 3 Diagnoses Atrial fibrillation with rapid ventricular response I48.91 Chest pain R07.9 Chest pain type: unspecified Chronic systolic CHF (congestive heart failure) I50.22 Fungemia B49 Chronic kidney disease N18.9 Chronic kidney disease stage: unspecified stage Pulmonary HTN I27.20 COPD (chronic obstructive pulmonary disease) J44.9 COPD type: unspecified COPD (1) Chest pain Chest pain type: unspecified Qualified Code(s): R07.9 - Chest pain, unspecified (2) Chronic kidney disease Chronic kidney disease stage: unspecified stage Qualified Code(s): N18.9 - Chronic kidney disease, unspecified (3) COPD (chronic obstructive pulmonary disease) COPD type: unspecified COPD Qualified Code(s): J44.9 - Chronic obstructive pulmonary disease, unspecified
[2020-05-24] MEDS ORDERED: DIGOXIN 0.25 MG TAB PO ONE (13:00)
--- NOTE | 2020-05-24 13:08 | Discharge Summary ---
Date of Service May 24, 2020 Admission HPI Per Admitting Provider The patient presented with palpitations and chest discomfort. He was found to have recurrent atrial fib flutter with rapid ventricular rate and chest discomfort associated with the rapid heart rate. He was seen by cardiology and subsequently started on digoxin in addition to his other medications. Slight troponin bump noted but no overt acute coronary syndrome. Principal Diagnosis recurrent atrial fib/flutter Discharge Exam General-alert and oriented x3, no fevers, no chills HEENT-head atraumatic and normocephalic, TMs intact bilaterally, pupils equal and reactive to light, extraocular muscles intact Neck-no lymphadenopathy or thyromegaly, trachea midline Chest-clear to auscultation percussion. No rales wheezing or rhonchi Cardiac-irregular rhythm with controlled rate. Prosthetic aortic valve click. Abdomen-normal bowel sounds, nontender, no hepatosplenomegaly Extremities-no cyanosis, clubbing, or edema Neuro-cranial nerves II through XII intact, motor and sensory function within normal limits, strength symmetrical 5/5, no focal deficits Psych-normal affect, normal mood Discharge Data Allergies Allergy/AdvReac Type Severity Reaction Status Date / Time amphotericin B Allergy Severe severe Verified 03/08/20 14:34 rigors, chills/fever/sweats-hypothalmus irregularity chlorhexidine Allergy Severe RASH Verified 03/08/20 14:34 edetic acid Allergy Severe Coma and Verified 03/08/20 14:34 'bowels shut down' egg Allergy Severe coma and Verified 03/08/20 14:34 "bowels shut down" glycerin Allergy Severe Coma and Verified 03/08/20 14:34 'bowels shut down' isopropyl alcohol Allergy Severe RASH Verified 03/08/20 14:34 propofol Allergy Severe Coma and Verified 03/08/20 14:34 'bowels shut down' adhesive Allergy Intermediate RASH Verified 03/08/20 14:34 heparin Allergy Intermediate Bleed out Verified 03/08/20 14:34 cat dander Allergy Mild WATERY EYES Verified 03/08/20 14:34 zolpidem [From Ambien] AdvReac Intermediate Sensation Verified 03/08/20 14:34 of skin cawling and jittery Consultations 05/23/20 20:03 ED Decision to Admit Stat 05/23/20 23:15 Consult Case Management - Discharge Planning Routine 05/24/20 08:36 Consult Cardiology Routine Hospital Course (1) Atrial fibrillation with rapid ventricular response: He appears to have atrial fib/ flutter. Cardiology consultation appreciated. Digoxin added. He is anticoagulated with Coumadin and is therapeutic. Cleared for discharge home today (2) Chest pain: Associated with rapid heart rate. Slight troponin bump. Will continue to trend troponins. No overt acute coronary syndrome. (3) Chronic systolic CHF (congestive heart failure): Known ejection fraction of 40%. No overt exacerbation at this time. Monitor intake and output (4) Fungemia: The patient has a mechanical aortic valve with chronic fungal infection and he is currently on oral antifungal medication. Will follow. (5) Chronic kidney disease: Known stage IV chronic kidney disease. He has had hemodialysis in the past. Current creatinine 2.4. Will follow (6) Pulmonary HTN: Known history of pulmonary hypertension. Currently on sildenafil treatment. (7) COPD (chronic obstructive pulmonary disease): Stable. Continue current medical management Total Time Total Time Spent Total Time Spent (In Minutes): 35 minute Total Time Includes: Examination of the Patient, Discharge Planning, Medication Reconciliation and Communication With Other Providers Discharge Plan Discharge Items Patient Disposition: Home - Self-Care Reason For Visit: AFIB Discharge Diagnosis: Recurrent atrial fib/flutter Activity: Resume your previous activity Non-emergency contact: Primary Care Provider and Catechist Call non-emergency contact if: you have any medication questions and your symptoms worsen Follow-up/Referrals: Aguila Pollard MD [Primary Care Provider] - (Please call Dr. Pollard's office to set up a follow-up appointment after discharge in 7 days.) Diet: Heart Healthy Addtl Attending Provider Instructions: Take digoxin every Wednesday and Pending Studies at Discharge: No Stand-Alone Forms: [employer] [facility], Smoking Cessation Medications and DC Order Prescriptions: New digoxin [Digitek] 125 mcg (0.125 mg) Tablet 0.125 mg PO MoTh@0900 Qty: 30 RF: 0 Continued albuterol sulfate [Ventolin HFA] 90 mcg/actuation HFA aerosol inhaler 2 puff inhalation QID PRN (Reason: Shortness Of Breath Or Wheezing) Qty: 18 RF: 3 melatonin 3 mg tablet 3 mg PO HS RF: 0 sildenafil (pulm.hypertension) [Revatio] 20 mg tablet 10 mg PO TID RF: 0 venlafaxine 25 mg tablet 25 mg PO BID RF: 0 warfarin 2 mg tablet 6 mg PO .7XW RF: 0 posaconazole [Noxafil] 200 mg/5 mL (40 mg/mL) suspension 400 mg PO BID RF: 0 mometasone 0.1 % Cream 1 applic TOPICAL BID PRN (Reason: Dermatitis) RF: 0 ZzzQuil 50 mg/30 mL Liquid 25 mg PO HS PRN (Reason: Sleep) RF: 0 tamsulosin 0.4 mg capsule 0.4 mg PO DAILY RF: 0 calcitriol 0.25 mcg capsule 0.25 mcg PO 3XWK RF: 0 polyethylene glycol 3350 [Miralax] 17 gram/dose Powder 17 g PO DAILY PRN (Reason: Constipation) RF: 0 Metamucil 3.4 gram/5.4 gram Powder 1 tbsp PO DAILY RF: 0 ketoconazole 2 % Shampoo 1 applic TOPICAL .UD RF: 0 furosemide [Lasix] 20 mg tablet 40 mg PO BID RF: 0 metoprolol succinate [Toprol XL] 100 mg tablet extended release 24 hr 100 mg PO HS RF: 0 Discharge Orders: Discharge Order (Routine); Ordered 05/24/20 Ordered By: Ed Villagomez Admission Data Admit Date/Time: 05/23/20 21:32 Attending Provider: Ed Villagomez Admit Provider: Clarence Christiansen I. Primary Care Provider: Aguila Pollard Other Providers: Chauncey Arita Jason Coding Level of Care Code D/C Day Management >30 mins Diagnoses Atrial fibrillation with rapid ventricular response I48.91 Chest pain R07.9 Chest pain type: unspecified Chronic systolic CHF (congestive heart failure) I50.22 Fungemia B49 Chronic kidney disease N18.9 Chronic kidney disease stage: unspecified stage Pulmonary HTN I27.20 COPD (chronic obstructive pulmonary disease) J44.9 COPD type: unspecified COPD
--- NOTE | 2020-05-24 13:29 | Cardiology Consultation ---
Date of Consultation Increased Palpitations likely secondary to dehydration. Feels better more chronic aflutter. On AC. No CP know with rate control. Mild increase In SOB. Labs stable. No edema or orthopnea. Rest of complete ROS is negative. PAST MEDICAL HISTORY: 1. History of supravalvular aortic stenosis and congenital aortic stenosis with a bicuspid aortic valve status post aortotomy at 10 months of age and patch augmentation aortotomy and aortic valve commissurotomy at 11 years of age. 2. Redo heart surgery in 2007 with a Bentall procedure including a [employer] aortic mechanical valve replacement, aortic root composite graft and jag-arch replacement by Dr. Henry at [facility]. 3. 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 4. History of hepatitis C status post Harvoni. 5. History of central retinal artery occlusion on the left eye preoperatively at the age of 38. 6. History of left psoas hematoma. 7. Pancytopenia. 8. Chronic kidney disease with baseline creatinine between 2.5. 9. DONOVAN 10/2015 without evidence of an abscess, and the aortic valve prostheses appear normal. 10. Visual changes not thought to be related to a stroke with extensive neurologic workup. 11. History of splenomegaly and cytopenia second to Neupogen. 12. History of atrial arrhythmias, including an atrial tachycardia with episodes of as fast as 170 beats per minute. 13. Stress echo 04/2018 exercising 9-1/2 minutes on a Babak protocol. He had appropriate heart rate and blood pressure response to exercise. His LV function was 40% at rest with global hypokinesis and his LV function did not improve with exercise. There were no discrete regional wall abnormalities to suggest obstructive CAD. 14. Cardiac catheterization 08/2018 without evidence of epicardial coronary artery disease, moderate to severe pulmonary hypertension, elevated RA and pulmonary artery wedge pressures and nor linda functioning aortic valve prosthesis by fluoroscopy. SOCIAL HISTORY: He denies any tobacco or alcohol. He works with [employer]. He is single. ALLERGIES: CATS, CHLORHEXIDINE, HEPARIN CAUSED SIGNIFICANT GI BLEEDING, BUT HE DENIES A HISTORY OF HEPARIN-INDUCED THROMBOCYTOPENIA, PROPOFOL WHICH CAUSED RHABDOMYOLYSIS. AMLODIPINE CAUSED LOWER EXTREMITY EDEMA. FAMILY HISTORY: There is no cardiac family history. PHYSICAL EXAMINATION: He is awake, alert, oriented x3. He looks pink today and does not look as chronically ill as had been described. Heart rate 64, blood pressure 98/64, sat 98%. BMI is 22. Weight is 57.9 kilograms. HEENT: 1+ carotid upstrokes, no evidence of carotid bruits. Jugular venous pressure appeared normal. Sclerae was anicteric. His hearing is normal. Lungs clear auscultation bilaterally, no rales, rhonchi, or wheezing. Heart: Regular rate and rhythm. He has a very prominent audible click of his aortic valve prosthesis without even putting the stethoscope on his chest. He has a loud click of S1 and S2, although S2 is more prominent. There is a very soft systolic ejection murmur at the right sternal border. There were no appreciable diastolic murmurs. Extremities: No clubbing, cyanosis, or edema. Psychiatric: His affect appeared appropriate.. IMpression: Atrial Flutter with RVR on chronic AC worsened by dehydration and anxiety CKD with ORTHOTIC/PROSTHETIC PRACTITIONER 2.5 NICM EF 40%: Digoxin 0.25 now and 0.125 Wednesday/ Dig level 2 weeks EKG in two weeks with PA Visit in office Ok to home Notified [facility]mad[facility] Going through Transplant work up at [facility] May 24, 2020 History of Present Illness Attending Physician: Ed Villagomez MD Allergies Allergy/AdvReac Type Severity Reaction Status Date / Time amphotericin B Allergy Severe severe Verified 03/08/20 14:34 rigors, chills/fever/sweats-hypothalmus irregularity chlorhexidine Allergy Severe RASH Verified 03/08/20 14:34 edetic acid Allergy Severe Coma and Verified 03/08/20 14:34 'bowels shut down' egg Allergy Severe coma and Verified 03/08/20 14:34 "bowels shut down" glycerin Allergy Severe Coma and Verified 03/08/20 14:34 'bowels shut down' isopropyl alcohol Allergy Severe RASH Verified 03/08/20 14:34 propofol Allergy Severe Coma and Verified 03/08/20 14:34 'bowels shut down' adhesive Allergy Intermediate RASH Verified 03/08/20 14:34 heparin Allergy Intermediate Bleed out Verified 03/08/20 14:34 cat dander Allergy Mild WATERY EYES Verified 03/08/20 14:34 zolpidem [From Ambien] AdvReac Intermediate Sensation Verified 03/08/20 14:34 of skin cawling and jittery Home Medications Medication Instructions Recorded Confirmed Type furosemide [Lasix] 40 mg PO BID 10/22/18 05/23/20 History metoprolol succinate [Toprol XL] 100 mg PO HS 06/09/19 05/23/20 History ZzzQuil 25 mg PO HS PRN 01/25/20 05/23/20 History mometasone 1 applic TOPICAL BID PRN 01/25/20 05/23/20 History posaconazole [Noxafil] 400 mg PO BID 01/25/20 05/23/20 History warfarin 6 mg PO .7XW 01/25/20 05/23/20 History albuterol sulfate 90 mcg/actuation 2 puff INHALATION QID PRN #18 g 03/06/20 05/23/20 Rx aerosol inhaler melatonin 3 mg tablet 3 mg PO HS 03/06/20 05/23/20 History sildenafil (pulm.hypertension) 20 10 mg PO TID tab 03/06/20 05/23/20 History mg tablet venlafaxine 25 mg tablet 25 mg PO BID tab 03/06/20 05/23/20 History calcitriol 0.25 mcg PO 3XWK 05/23/20 05/23/20 History ketoconazole [Nizoral] 1 applic TOPICAL .UD 05/23/20 05/23/20 History polyethylene glycol 3350 [Miralax] 17 g PO DAILY PRN 05/23/20 05/23/20 History psyllium husk [Metamucil] 1 tbsp PO DAILY 05/23/20 05/23/20 History tamsulosin 0.4 mg PO DAILY 05/23/20 05/23/20 History digoxin [Digitek] 0.125 mg PO MoTh@0900 #30 tab 05/24/20 Rx Patient History Medical History Anemia due to chronic kidney disease Bicuspid aortic valve HX REPLACED 2007 Cardiomyopathy Central retinal artery occlusion of left eye age 38 Chronic kidney disease, stage 4 (severe) baseline creatinine 2.5 Chronic systolic CHF (congestive heart failure) EF 40%; nonischemic. Follows with Dr Michoacano Simental, [facility]. Congenital heart disease COPD (chronic obstructive pulmonary disease) Enlargement of spleen Fungemia jody parapsilosis, multiple occurrences - 2007, 2008, 2009, 2012, 2019; presumed endocarditis without mechanical valve dysfunction on chronic Hepatitis C s/p Harvoni with clearance. Internal bleeding hemorrhoids Paroxysmal atrial flutter along with atrial tachycardia Peripheral neuropathy Psoas hematoma, left, secondary to anticoagulant therapy Pulmonary HTN moderate/severe. On chronic revatio. Surgical History H/O aortic valve repair 1968, 1981, 2007 H/O heart surgery mechanical aortic valve and arch repair (Bentall) 2007, [facility] History of anesthesia reaction SEE ALLERGIES LAST HEART CATH/WAS AWAKE DURING ENTIRE PROCEDURE LAST COLONOSCOPY-WOKE UP IN MIDDLE OF PROCEDURE History of aortic valve replacement 25 millimeter [employer] valve placed in 2007, [facility]. History of cardiac cath (TOTAL 5 OR 6) LAST ONE AUGUST 2018 History of colonoscopy History of herniorrhaphy 2010 History of tooth extraction Family History Grandmother , paternal Heart disease Uncle Heart disease Mother No problems noted. Father No problems noted. Other Asthma Diabetes Emphysema, unspecified Hypertension Lung disease Denies family history of Cancer Social History Smoking Status: Former smoker packs per day: 1; Years Smoked: 25; Number of Years Since Quit: 6; Second Hand Exposure: No; Do You Dip or Chew Tobacco: No; Hx Alcohol Use: No Hx Substance Use: No Preferred Language: Djiboutian Communication Ability: Effective Vulcanizing Machine Operator Required: No Beliefs That Will Affect Care: None marital status: Single Current Living Situation: Alone Current Living Situation Comment: lives in [place] current occupational status: disabled current occupation: Disabled How many Children do You have: 0 Feels Safe at Home: Yes Assistive Devices: Glasses Results & Data ([facility]) Vital Signs (Past 12 Hours) Vital Signs Temp Pulse Pulse Resp BP Pulse Ox 05/24/20 11:34 37.1 C 101 H 16 97/63 L 96 05/24/20 07:55 37.1 C 89 16 102/67 97 05/24/20 04:52 139/84 05/24/20 04:00 36.8 C 105 H 24 134/84 97 05/24/20 02:47 36.9 C 87 20 104/73 98
--- NOTE | 2020-05-24 14:21 | Electrocardiogram Report ---
Test Reason : Blood Pressure : / mmHG Vent. Rate : 101 BPM Atrial Rate : 256 BPM P-R Int : 000 ms QRS Dur : 106 ms QT Int : 298 ms P-R-T Axes : 269 015 198 degrees QTc Int : 386 ms Possible Atrial flutter with variable A-V block Incomplete left bundle block Abnormal ECG When compared with ECG of 08-MAR-2020 14:18, Atrial flutter has replaced Atrial fibrillation QT has shortened Confirmed by Aguila Ma ([id number]) on 05/24/2020 2:21:01 PM Referred By: REFERRED SELF Confirmed By:Aguila Ma
--- NOTE | 2020-05-24 14:47 | Electrocardiogram Report ---
Test Reason : Blood Pressure : / mmHG Vent. Rate : 098 BPM Atrial Rate : 264 BPM P-R Int : 000 ms QRS Dur : 106 ms QT Int : 312 ms P-R-T Axes : -89 068 226 degrees QTc Int : 398 ms Atrial flutter with variable A-V block Septal infarct , age undetermined Abnormal ECG When compared with ECG of 23-MAY-2020 16:41, (unconfirmed) Septal infarct is now Present T wave inversion less evident in Lateral leads Confirmed by Aguila Ma ([id number]) on 05/24/2020 2:46:55 PM Referred By: REFERRED SELF Confirmed By:Aguila Ma
[2020-05-24] MEDS ORDERED: METOPROLOL SUCC 50MG EXT REL TAB PO SCH (21:00)
[2020-05-24] MEDS ORDERED: MELATONIN 3 MG TAB PO SCH (21:00)
--- NOTE | 2020-05-25 06:44 | Billing Data ---
Date of Service May 25, 2020 Coding Level of Care Code 05973 OBS Care - Level 3
[2020-05-27] MEDS ORDERED: DIGOXIN 0.125 MG TAB PO SCH (09:00)
== END 2020-05-24 15:00 | disposition home or self-care (01) ==
LOC: ED 16:38 → 2W 16:38 → SUATTDRO 21:32 → 2W 22:15